=== PATIENT | female | born 1935 | race Caucasian/White ===

== ENCOUNTER 2020-07-03 13:01 | Outpatient (REF) | payer MEDICARE, SELFPAY ==
--- NOTE | ~2020-07-03 | US_ITS ---
EXAMINATION: US NONINVASIVE ASSESSMENT OF THE ARTERIES OF BOTH LOWER EXTREMITIES WITH OKSANA AND DUPLEX DOPPLER EVALUATION CLINICAL INFORMATION: Claudication. COMPARISON: Arteriography of 01/02/2015. TECHNIQUE: ABIs were performed. Real-time ultrasound and Doppler techniques (integrating B-mode 2D vascular images, Doppler spectral analysis and color flow Doppler imaging) were utilized to interrogate the arterial system of the lower extremities bilaterally. FINDINGS: a) AT REST: 1. The ankle-brachial indices are: Right 1.04 and left 1.03. >0.97-1.25 = normal - no significant arterial disease. 0.75-0.96 = mild peripheral arterial disease. 0.5-0.74 = moderate peripheral arterial disease. <0.50 = severe peripheral arterial disease. 2. Segmental pressure at ankle: 202 mmHg within the right dorsalis pedis artery and 200 mmHg in the left posterior tibial and dorsalis pedis arteries. The ankle brachial indices may be falsely elevated due to calcific dictation within the distal vessels limiting compressibility with calcifications being seen on left foot x-ray performed on 03/07/2015. 3. PVR Waveform At Ankle: Blunting of the waveform on the right. RIGHT LOWER EXTREMITY: Common femoral artery has a biphasic waveform with peak systolic velocity of 196 cm/s. Proximal superficial femoral artery has a biphasic waveform with peak systolic velocity of 99 cm/s. The profunda femoral artery has a biphasic waveform with peak systolic velocity of 169 cm/s. The mid superficial femoral artery has a biphasic waveform with peak systolic velocity of 117 cm/s. The mid superficial femoral artery has a biphasic waveform with peak systolic velocity of 140 cm/s. The distal superficial femoral artery has a biphasic waveform with peak systolic velocity of 305 cm/s proximal to a stenosis with calcified plaque and distal to the stenosis within the superficial femoral artery the velocity is 30 cm/s. The popliteal artery has a biphasic waveform with peak systolic velocity of 123 cm/s. The proximal peroneal artery has a monophasic waveform with peak systolic velocity of 54 cm/s. The mid posterior tibial artery is occluded with collaterals reconstituting flow with monophasic waveform at the ankle and peak systolic velocity of 34 cm/s. LEFT LOWER EXTREMITY: Left common femoral artery has a triphasic waveform with peak systolic velocity of 180 cm/s. The profunda femoral artery has a biphasic waveform with peak systolic velocity of 134 cm/s. There is a stent noted from the proximal superficial femoral artery through to the popliteal artery. Just proximal to the stent there is a triphasic waveform within the superficial femoral artery with peak systolic velocity of 203 cm/s. Within the proximal stent in the superficial femoral artery there is a triphasic waveform with peak systolic velocity of 198 cm/s. Within the mid superficial femoral artery stent portion there is a triphasic waveform with peak systolic velocity of 190 cm/s. Within the distal superficial femoral artery portion of the stent there is a triphasic waveform with peak systolic velocity of 177 cm/s. Within the popliteal artery just distal to the stent there is a biphasic waveform with peak systolic velocity of 148 cm/s. Within the distal posterior tibial artery there is a biphasic waveform with peak systolic velocity of 79 cm/s. Within the peroneal artery there is a monophasic waveform with peak systolic velocity of 181 cm/s. US/US arterial duplex LE BI IMPRESSION: 1. Probably falsely elevated ABIs related to noncompressibility of calcified vessels at the ankle. 2. Hemodynamically significant distal superficial femoral artery stenosis. 3. Patent left lower extremity superficial femoral artery stent.
== END 2020-07-03 13:02 | disposition home or self-care (01) ==
LOC: HO.US 13:01
PROVIDERS: Visit Provider Surgery Vascular Surgery
DX: I70.213 Atherosclerosis of native arteries of extremities with intermittent claudication, bilateral legs (principal)
CPT/HCPCS: 93923; 93925

== ENCOUNTER → 2020-07-08 15:30 | Outpatient (BNVA) | payer MEDICARE, SELFPAY | PROVIDERS: PCP Internal Medicine; Visit Provider Surgery Vascular Surgery | DX: I73.9 Peripheral vascular disease, unspecified (principal) | CPT/HCPCS: 99212 ==

== ENCOUNTER 2021-07-02 08:58 | Outpatient (REF) | payer MEDICARE, SELFPAY ==
--- NOTE | ~2021-07-02 | US_ITS ---
EXAMINATION: Noninvasive assessment of the arteries of both lower extremities to include a PVR exam limited (1-2 levels) and OKSANA, bilateral. ? Patrick Carr M.D. CLINICAL INFORMATION: Peripheral vascular disease COMPARISON: 07/03/2020 TECHNIQUE: The ankle/brachial indices of the distal posterior tibial and the dorsalis pedis arteries were obtained of the lower extremity arterial system bilaterally; along with pressures and pulse volume recordings at the ankle and duplex Doppler techniques of the common femoral, proximal femoral and proximal profunda arteries. The study was performed at rest. ? FINDINGS AT REST:? RIGHT LE. THE RIGHT ANKLE-BRACHIAL INDEX IS: 1.35 (higher of the DP/PT) >0.97-1.25 = normal - no significant arterial disease 0.75-0.96 = mild peripheral arterial disease 0.50-0.74 = moderate peripheral arterial disease <0.50 = severe peripheral arterial disease <0.30 = critical arterial disease 2. SEGMENTAL PRESSURES: Ankle: PT 205 DP 200 3. PVR WAVEFORMS: Ankle: Abnormally blunted 4. DIRECT DUPLEX: Atherosclerotic plaque in the visualized common femoral artery, proximal profunda femoral artery and proximal SFA with normal diastolic flow reversal. Markedly elevated velocity in the mid SFA with bulky atherosclerotic plaque. There are normal velocities in the distal SFA, popliteal artery and posterior tibial artery with diastolic flow reversal. LEFT LE. THE LEFT ANKLE-BRACHIAL INDEX IS: 1.33 (higher of the DP/PT) >0.97-1.25 = normal - no significant arterial disease 0.75-0.96 = mild peripheral arterial disease 0.50-0.74 = moderate peripheral arterial disease <0.50 = severe peripheral arterial disease <0.30 = critical arterial disease 2. SEGMENTAL PRESSURES: Ankle: PT 198 DP 202 3. PVR WAVEFORMS: Ankle: Abnormally blunted 4. DIRECT DUPLEX: The common femoral artery and profunda femoral artery have normal velocities with diastolic flow reversal. There is a patent stent in the SFA with normal velocity measurements. Normal velocities with diastolic flow reversal in the diseased popliteal artery. The posterior tibial artery is diseased but patent with normal diastolic flow reversal. ? US/US arterial duplex LE BI IMPRESSION: ABIs are likely artificially elevated due to noncompressibility. AVR values are within normal limits. Abnormally blunted PVR waveforms at the ankles. Left SFA stent is patent. High-grade stenosis in the mid right SFA. There are normal velocities with preserved diastolic flow reversal distal to the high-grade stenosis.
== END 2021-07-02 08:59 | disposition home or self-care (01) ==
LOC: HO.US 08:58
PROVIDERS: PCP Internal Medicine; Visit Provider Surgery Vascular Surgery
DX: I73.9 Peripheral vascular disease, unspecified (principal)
CPT/HCPCS: 93923; 93925

== ENCOUNTER → 2021-07-07 13:01 | Outpatient (BNVA) | payer MEDICARE, SELFPAY | PROVIDERS: PCP Internal Medicine; Visit Provider Surgery Vascular Surgery | DX: I73.9 Peripheral vascular disease, unspecified (principal) | CPT/HCPCS: 99212 ==

== ENCOUNTER 2021-07-22 05:55 | Day surgery (SDC) | payer MEDICARE, SELFPAY ==
[2021-07-22] VITALS (8 sets, daily range): BP systolic 141–168; BP diastolic 64–79; PULSE 70; RESP 17–20; TEMP 36.4–36.8; O2SAT 95–97; BMI 32.1
[2021-07-22 06:35] LABS: MANUAL DIFF FLAG NO
[2021-07-22] MEDS: 0.9 % Sodium Chloride 1,000 ML 100 ML IVCONT (06:42)
[2021-07-22 06:52] LABS: Blood Urea Nitrogen 17 mg/dL (9-16); Creatinine Clr Calc Pharmacy 49.8; Estimated Glomerular Filt Rate 56
[2021-07-22 06:54] LABS: Basophils Percent Auto 0.4 % (0-2); Eosinophils Absolute Auto 0.2 X10*3/uL (0.0-0.4); Hemoglobin 15.2 g/dl (12.0-16.0); Imm Gran Abs Auto 0.02 X10*3/uL (0.00-0.03); Imm Gran Pct Auto 0.2 % (0.0-0.4); Lymphocytes Percent Auto 22.4 % (20-40); Mean Corpuscular Hemoglobin 33.1 pg (27.0-33.0); Mean Corpuscular Volume 100.2 fL (80.0-98.0); Mean Platelet Volume 11.9 fL (9.4-12.3); Monocytes Absolute Auto 0.8 X10*3/uL (0.1-1.2); Monocytes Percent Auto 9.2 % (2-11); Neutrophils Absolute Auto 5.9 x10*3/uL (2.0-8.3); Neutrophils Percent Auto 65.8 % (45-73); Platelet Count 172 X10*3/uL (160-400); Red Blood Count 4.59 X10*6/uL (4.20-5.50); White Blood Count 8.9 X10*3/uL (4.8-10.8)
[2021-07-22 07:03] LABS: INTERNATIONAL NORM RATIO 1.2 (0.9-1.1); Prothrombin Time 13.9 SEC (9.9-13.0)
--- NOTE | 2021-07-22 09:33 | W.PM.OPN ---
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 Ultrasound-guided left common femoral access 2. Aortogram with bilateral lower extremity runoff 3. Atherectomy and stent placement of right SFA Surgeon:Cain Montes M.D., FACS, RPVI Foreman Or Supervisor And Operator:None Anesthesia: Local with moderate conscious sedation. Total intraservice moderate sedation time was 62 minutes. I monitored the patient's level of consciousness and physiologic status continuously throughout the procedure. Specimens:none Drains:none Estimated blood loss: Less than 10 ml Implant: Medtronic Ev 3 stent 6 x 40 Indications: Very pleasant 86-year-old female well known to me for longstanding history of peripheral vascular disease. Nearly 5-6 years ago she has had prior left lower extremity intervention. She had increasing pain and discomfort of the right lower extremity on ambulation and she now presents for endovascular intervention The patient has signed the informed consent after reviewing risks, complications, benefits, and alternatives previously discussed with the patient. The patient was given the opportunity to ask any additional questions or voice any concerns. All questions were answered to the patient's satisfaction. Procedure in detail: Patient was brought to the angiography suite prior to which a time-out was called for patient identification and site verification. Bilateral groins were prepped and draped in the standard surgical fashion. Under ultrasound guidance left common femoral was punctured with micro puncture needle and wire. Subsequently a precision 5 [place] sheath was then placed. Bentson wire was advanced to the level of the aorta. 5 [place] Flush catheter was brought up and parked at the level of the renal arteries. Aortogram was then undertaken. Catheter was brought down to the level of the iliac bifurcation. Iliacs were subsequently imaged. Catheter was then brought in up and over to the right side SFA. Runoff study was then undertaken. There was a high-grade stenosis noted in the right SFA. At this time 5000 units of systemic heparin was administered. Up and over 6 [place] sheath was placed over a Glidewire Advantage which was 035. Once this was accomplished we were able to traverse this lesion. We placed a 6 [place] spider wire. Once this was in position we then advanced a Hawk 1 atherectomy device. This was used to do multiple unidirectional atherectomy passes. Once we did improve the luminal diameter there was still a residual stenosis. We plasty this 1st with a 6 x 20 balloon. We then brought into position a 6 x 40 stent and this was deployed. We reused this 6 x 20 balloon to obtain good wall apposition. Once this was accomplished completion angiogram demonstrated good result. Catheter wire sheath was brought back to the ipsilateral side. Through the sheath we then undertook the left lower extremity runoff study as well. Once this was accomplished procedure was terminated. StarClose closure device was deployed. Adequate hemostasis was achieved. Patient was brought back to recovery with stable vitals. Interpretation of films: 1. Ultrasound demonstrates appropriate femoral puncture. Image of which was saved. 2. Aortogram demonstrates appropriate caliber aorta. Minimal disease. Appropriate take-off of the renals, with mild disease at bilateral origin 3. Iliac images demonstrate no significant disease mild tortuosity 4. Right Leg Common femoral artery: No significant disease Profundus Femoris: No significant disease Superficial femoral artery: Patent with high-grade stenosis at [place] Popliteal artery (p1,p2,p3): No significant disease Anterior tibial artery: Patent at origin and then occludes feeds into the peroneal artery Peroneal artery: Occluded at origin and then feeds via collaterals from the anterior tibial and then becomes the main dominant runoff. Posterior tibial artery: Occluded Dorsalis pedis/plantar arch: Occluded 5. Left Leg Common femoral artery: No significant disease Profundus Femoris: No significant disease Superficial femoral artery: Patent with no significant disease noted in stents. Popliteal artery (p1,p2,p3): No significant disease Anterior tibial artery: Patent with mild disease at origin Peroneal artery: Patent Posterior tibial artery: Patent Dorsalis pedis/plantar arch: Present but incomplete Conclusion: 1. Successful atherectomy and stent of right SFA 2. Anticoagulation status: Continue with aspirin and she can resume her Coumadin tomorrow This note is constructed using voice recognition software. While every effort has been made to ensure accuracy, director of career resources errors may have been included. Thank you for allowing me to participate in the care of your patient. Yours sincerely, Cain Montes MD, FACS, R.P.V.I.
== END 2021-07-22 11:42 | disposition home or self-care (01) ==
PROVIDERS: PCP Internal Medicine; Visit Provider Surgery Vascular Surgery
DX: I70.211 Atherosclerosis of native arteries of extremities with intermittent claudication, right leg (principal); I10 Essential (primary) hypertension; E78.00 Pure hypercholesterolemia, unspecified; M72.2 Plantar fascial fibromatosis; Z96.651 Presence of right artificial knee joint; Z79.01 Long term (current) use of anticoagulants; Z79.82 Long term (current) use of aspirin; Z79.899 Other long term (current) drug therapy; Z88.8 Allergy status to other drugs, medicaments and biological substances
CPT/HCPCS: 36415; 37227; 76937; 82565; 84520; 85025; 85610; 99152; 99153; C1714; C1725; C1760; C1769; C1876; C1884; C1887; J2250; J3010; Q9967

== ENCOUNTER → 2021-08-06 10:13 | Outpatient (BNVA) | payer MEDICARE, SELFPAY | PROVIDERS: PCP Internal Medicine; Visit Provider Surgery Vascular Surgery | DX: I73.9 Peripheral vascular disease, unspecified (principal) | CPT/HCPCS: 99212 ==

== ENCOUNTER 2021-11-02 10:18 | Outpatient (REF) | payer MEDICARE, SELFPAY ==
--- NOTE | ~2021-11-02 | US_ITS ---
EXAMINATION: NONINVASIVE ASSESSMENT OF THE ARTERIES OF BOTH LOWER EXTREMITIES WITH ANKLE PRESSURE MEASUREMENTS, ANKLE BRACHIAL INDICES, PVR MEASUREMENTS AND BILATERAL LOWER EXTREMITY DUPLEX. CLINICAL INFORMATION: Peripheral vascular disease. TECHNIQUE: Ankle pressure measurements, ankle brachial indices and PVR tracings were obtained of the lower extremity arterial system bilaterally. In addition, duplex Doppler techniques with waveform analysis and measurement of velocities in the common femoral, profunda femoral, superficial femoral, popliteal and tibial arteries was performed. The study was performed only at rest. COMPARISON: 07/02/2021 FINDINGS: NONINVASIVE ASSESSMENT OF THE ARTERIES OF BOTH LOWER EXTREMITIES WITH ABIs: RIGHT LEG: Right ankle-brachial index: Not calculated due to vessel noncompressibility. PVR (ankle): Abnormal, dampened. LEFT LEG: Ankle-brachial index: Not calculated due to vessel noncompressibility. PVR (ankle): Abnormal, loss of dicrotic notch. BILATERAL LOWER EXTREMITY DUPLEX ULTRASOUND: RIGHT LEG: Common femoral artery: 158 cm/s, diastolic flow reversal: Yes Profunda femoris artery: 138 cm/s, diastolic flow reversal: Yes Superficial femoral artery (proximal): 110 cm/s, diastolic flow reversal: No Superficial femoral artery (mid): 217 cm/s, diastolic flow reversal: Yes Mid SFA stent: [place] artery, proximal: 234 cm/s, diastolic flow reversal: Yes Proximal stent: 233 cm/s, diastolic flow reversal: Yes Mid stent: 152 cm/s, diastolic flow reversal: No Distal stent: 164 cm/s, diastolic flow reversal: No [place] artery, distal: 136 cm/s, diastolic flow reversal: No Superficial femoral artery (distal): 111 cm/s, diastolic flow reversal: Yes Popliteal artery: 176 cm/s, diastolic flow reversal: Yes Posterior tibial artery: 118 cm/s, diastolic flow reversal: No LEFT LEG: Common femoral artery: 220 cm/s, diastolic flow reversal: Yes Profunda femoris artery: 119 cm/s, diastolic flow reversal: Yes SFA stent: [place] artery, proximal: 117 cm/s, diastolic flow reversal: Yes Proximal stent: 191 cm/s, diastolic flow reversal: Yes Mid stent: 125 cm/s, diastolic flow reversal: Yes Distal stent: 106 cm/s, diastolic flow reversal: No Popliteal artery: 118 cm/s, diastolic flow reversal: Yes Posterior tibial artery: 89 cm/s, diastolic flow reversal: No US/US arterial duplex LE BI IMPRESSION: RIGHT LEG: OKSANA not calculated due to vessel noncompressibility. Increased velocities within the [place] mid SFA and proximal mid SFA stent consistent with a moderate stenosis. The stent is patent. LEFT LEG: OKSANA not calculated due to vessel noncompressibility. Duplex reveals a patent left SFA stent. OKSANA Reference: - >0.97-1.25 = normal - no significant arterial disease - 0.75-0.96 = mild peripheral arterial disease - 0.5-0.74 = moderate peripheral arterial disease - <0.50 = severe peripheral arterial disease
== END 2021-11-02 10:19 | disposition home or self-care (01) ==
LOC: HO.US 10:18
PROVIDERS: Visit Provider Surgery Vascular Surgery
DX: I73.9 Peripheral vascular disease, unspecified (principal)
CPT/HCPCS: 93925

== ENCOUNTER → 2021-11-24 10:19 | Outpatient (BNVA) | payer MEDICARE, SELFPAY | PROVIDERS: PCP Internal Medicine; Visit Provider Surgery Vascular Surgery | DX: I73.9 Peripheral vascular disease, unspecified (principal) | CPT/HCPCS: 99212 ==

== ENCOUNTER 2022-05-06 11:00 | Outpatient (REF) | payer MEDICARE, SELFPAY ==
--- NOTE | ~2022-05-06 | US_ITS ---
EXAMINATION: NONINVASIVE ASSESSMENT OF THE ARTERIES OF BOTH LOWER EXTREMITIES WITH PVR EXAM AND BILATERAL LOWER EXTREMITY DUPLEX Darrian Trujillo MD CLINICAL INFORMATION: Peripheral vascular disease. TECHNIQUE: Ankle pulse volume recordings, ankle pressure measurements and ankle brachial indices were obtained of the lower extremity arterial system bilaterally in addition to duplex Doppler techniques with wave form analysis and measurement of velocities in the common femoral, profunda femoral, superficial femoral, popliteal and tibial arteries. The study was performed only at rest. COMPARISON: 11/02/2021 FINDINGS: AT REST: RIGHT LEG: There is a widely patent stent present in the mid SFA. Some plaque is present but multiphasic flow is seen throughout. 1. The right ankle-brachial index is: OK[place]NA could not be calculated secondary to noncompressible vessels as seen on the prior study as well. >0.97-1.25 = normal - no significant arterial disease 0.75-0.96 = mild peripheral arterial disease 0.5-0.74 = moderate peripheral arterial disease <0.50 = severe peripheral arterial disease 2. Right ankle pressure: Not obtained due to incompressibility 3. Right ankle PVR waveform: Mildly blunted 4. Right direct duplex Doppler findings: Common Femoral: 138 Profunda Femoris: 112 Proximal SFA: 110 Mid SFA: 217 Distal SFA: 116 Popliteal: 138 Tibial: 41 LEFT LEG: There is widely patent stent present throughout the SFA. Some plaque is present but multiphasic flow is seen throughout. 1. The left ankle-brachial index is: OKSANA could not be calculated secondary to noncompressible vessels as seen on the prior study as well. >0.97-1.25 = normal - no significant arterial disease 0.75-0.96 = mild peripheral arterial disease 0.5-0.74 = moderate peripheral arterial disease <0.50 = severe peripheral arterial disease 2. Left ankle pressure: Not obtained due to incompressibility. 3. Left ankle PVR waveform: Normal. 4. Left direct duplex Doppler findings: Common Femoral: 152 Profunda Femoris: 100 Proximal SFA: 105 Mid SFA: 118 Distal SFA: 102 Popliteal: 69 Tibial: 63 US/US OKSANA complete IMPRESSION: Bilateral SFA stents are patent. Multiphasic flow is seen throughout the lower extremities.
--- NOTE | ~2022-05-06 | US_ITS ---
EXAMINATION: NONINVASIVE ASSESSMENT OF THE ARTERIES OF BOTH LOWER EXTREMITIES WITH PVR EXAM AND BILATERAL LOWER EXTREMITY DUPLEX Darrian Trujillo MD CLINICAL INFORMATION: Peripheral vascular disease. TECHNIQUE: Ankle pulse volume recordings, ankle pressure measurements and ankle brachial indices were obtained of the lower extremity arterial system bilaterally in addition to duplex Doppler techniques with wave form analysis and measurement of velocities in the common femoral, profunda femoral, superficial femoral, popliteal and tibial arteries. The study was performed only at rest. COMPARISON: 11/02/2021 FINDINGS: AT REST: RIGHT LEG: There is a widely patent stent present in the mid SFA. Some plaque is present but multiphasic flow is seen throughout. 1. The right ankle-brachial index is: OKSANA could not be calculated secondary to noncompressible vessels as seen on the prior study as well. >0.97-1.25 = normal - no significant arterial disease 0.75-0.96 = mild peripheral arterial disease 0.5-0.74 = moderate peripheral arterial disease <0.50 = severe peripheral arterial disease 2. Right ankle pressure: Not obtained due to incompressibility 3. Right ankle PVR waveform: Mildly blunted 4. Right direct duplex Doppler findings: Common Femoral: 138 Profunda Femoris: 112 Proximal SFA: 110 Mid SFA: 217 Distal SFA: 116 Popliteal: 138 Tibial: 41 LEFT LEG: There is widely patent stent present throughout the SFA. Some plaque is present but multiphasic flow is seen throughout. 1. The left ankle-brachial index is: OKSANA could not be calculated secondary to noncompressible vessels as seen on the prior study as well. >0.97-1.25 = normal - no significant arterial disease 0.75-0.96 = mild peripheral arterial disease 0.5-0.74 = moderate peripheral arterial disease <0.50 = severe peripheral arterial disease 2. Left ankle pressure: Not obtained due to incompressibility. 3. Left ankle PVR waveform: Normal. 4. Left direct duplex Doppler findings: Common Femoral: 152 Profunda Femoris: 100 Proximal SFA: 105 Mid SFA: 118 Distal SFA: 102 Popliteal: 69 Tibial: 63 US/US arterial duplex LE BI IMPRESSION: Bilateral SFA stents are patent. Multiphasic flow is seen throughout the lower extremities.
== END 2022-05-06 11:01 | disposition home or self-care (01) ==
LOC: HO.US 11:00
PROVIDERS: PCP Internal Medicine; Visit Provider Surgery Vascular Surgery
DX: I70.213 Atherosclerosis of native arteries of extremities with intermittent claudication, bilateral legs (principal)
CPT/HCPCS: 93923; 93925

== ENCOUNTER → 2022-05-13 10:04 | Outpatient (BNVA) | payer MEDICARE, SELFPAY | PROVIDERS: PCP Internal Medicine; Visit Provider Surgery Vascular Surgery | DX: I73.9 Peripheral vascular disease, unspecified (principal) | CPT/HCPCS: 99212 ==

== ENCOUNTER 2023-04-12 09:29 | Outpatient (REF) | payer MEDICARE, SELFPAY ==
--- NOTE | ~2023-04-12 | US_ITS ---
EXAMINATION: Noninvasive assessment of the bilateral lower extremities with ARTERIAL DUPLEX and ANKLE BRACHIAL INDICES (ABIs). CLINICAL INFORMATION: Peripheral vascular disease. History of prior bilateral stents TECHNIQUE: Duplex Doppler techniques with waveform analysis and measurement of velocities in the bilateral common femoral, profunda femoris, superficial femoral, popliteal and tibial arteries were performed. Additionally, ankle pulse volume recordings, ankle pressure measurements and ankle brachial indices were obtained of the lower extremity arterial system bilaterally. The study was performed only at rest. COMPARISON: 05/06/2022 and 11/02/2021 FINDINGS: DIRECT DUPLEX DOPPLER FINDINGS: RIGHT LEG: Common femoral artery: 90.8 cm/s, phasicity: Triphasic Profunda femoris artery: 71.4 cm/s, phasicity: Triphasic Superficial femoral artery (proximal): 66.8 cm/s, phasicity: Biphasic Superficial femoral artery (mid): Stent is present Stent: Proximal to stent: 160.9 cm/s, biphasic Proximal stent: 150.4 cm/s, biphasic Mid stent: 82.8 cm/s, biphasic Distal stent: 71.4 cm/s, biphasic Distal to stent: 79.2 cm/s, biphasic Superficial femoral artery (distal): 76.5 cm/s, phasicity: Biphasic Popliteal artery: 65.7 cm/s, phasicity: Biphasic Posterior tibial artery: 16.7 cm/s, phasicity: Monophasic in the mid segment. Distal segment is occluded Peroneal artery: Occluded Anterior tibial artery: 22.9 cm/s, phasicity: Monophasic Dorsalis pedis artery: 28.4 cm/s, phasicity:Monophasic LEFT LEG: Common femoral artery: 79.3 cm/s, phasicity: Biphasic Profunda femoris artery: 58.7 cm/s, phasicity: Biphasic Superficial femoral artery (proximal) to popliteal artery: Stent is present Stent: Proximal to stent: 66.2 cm/s, biphasic Proximal stent: 84.9 cm/s, biphasic Mid stent: 82.1 cm/s, biphasic Distal stent: 68.2 cm/s, biphasic Distal to stent: 80.5 cm/s, triphasic Posterior tibial artery: 80.1 cm/s, phasicity: Biphasic Peroneal artery: 38.4 cm/s, phasicity: Biphasic Anterior tibial artery: 67.3 cm/s, phasicity: Biphasic Dorsalis pedis artery: 40.2 cm/s, phasicity: Biphasic ANKLE-BRACHIAL INDEX: Right: Nondiagnostic? Left: Nondiagnostic ANKLE PRESSURES: Right: PT nondetectable, DP greater than 200 Left: PT?nondetectable, DP?greater than 200 ANKLE PVR WAVEFORMS: Right: Moderately dampened Left: Mildly dampened US/US arterial duplex LE BI IMPRESSION: Right leg: Stable examination with patent superficial femoral artery stent. Dampened waveforms seen in the below-knee runoff vessels consistent with small vessel disease Left leg: Stable examination with patent superficial femoral artery to popliteal artery stent. Patent below-knee runoff vessels OKSANA Reference: - >1.4 = calcified vessels - 0.9 - 1.4 = normal - no significant arterial disease - 0.7 - 0.89 = mild peripheral arterial disease - 0.51 - 0.69 = moderate peripheral arterial disease - ? 0.50 = severe peripheral arterial disease - < .30 = critical arterial disease
== END 2023-04-12 09:30 | disposition home or self-care (01) ==
LOC: HO.US 09:29
PROVIDERS: PCP Internal Medicine; Visit Provider Surgery Vascular Surgery
DX: I70.213 Atherosclerosis of native arteries of extremities with intermittent claudication, bilateral legs (principal)
CPT/HCPCS: 93923; 93925

== ENCOUNTER 2023-04-19 09:35 | Outpatient (AMB) | payer MEDICARE, SELFPAY ==
[2023-04-19 09:38] VITALS: BP 114/62; PULSE 60; O2SAT 97; BMI 30.7
--- NOTE | 2023-04-19 09:38 | A.OFFVIS_ITS ---
Intake Vital Signs 04/19/23 09:38 Height 5 ft 6 in Weight 190 lb BMI 30.7 BP 114/62 Blood Pressure Location Rt brachial Position Sitting Pulse 60 Pulse Source Pulse Oximeter Pulse Oximetry (%) 97 Oxygen Delivery Method Room Air Intake Visit Reasons: 1 yr follow up Arterial US 04/12/23 Intake Note: Pt presents to the office today for a 1 year follow up arterial US. Pt states she has good days and bad days. Pt states her leg swelling is not as bad as it was before. Pt states she will occasionally get pain in her toes in both feet. Pt states her left big toe has some discoloration on the bottom. Allergies Vlokzpn-VAH-DqQ Reductase Inhibitor [ZCFPFDF-CHC-TLG REDUCTASE INHIBITOR] Adverse Reaction (Severe, Verified 04/19/23 09:39) BODY ACHES amoxicillin Adverse Reaction (Mild, Verified 04/19/23 09:39) Diarrhea HPI 1 yr follow up Arterial US 04/12/23 HPI Details Very pleasant 87-year-old female presents for routine surveillance follow-up regarding peripheral vascular disease. She had undergone left lower extremity intervention nearly 8 years ago and right lower extremity intervention nearly 2 years ago. She appears to be doing extremely well. Her only concern is a blister on the left great toe. Other than that no significant complaints. She appears to be doing well. She has seen Dr. French regarding a facial cyst excision from which she appears to be doing extremely well from. 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 Social History (Updated 04/19/23 @ 09:52 by Joan Gerardo MA) Household Members: Spouse Housing: House Alcohol intake: current Alcohol intake frequency: holidays/special occasions only Patient Tobacco Use Status: Never used Tobacco Review of Systems Const All systems reviewed & are unremarkable except as noted in HPI and below Reports no additional complaints ENT Reports Normal hearing present Card Denies chest pain, Denies chest pain at rest, Denies chest pain with activity and Denies pedal edema Resp Denies cough GI Denies abdominal pain Musc Denies abnormal gait, Denies muscle cramps and Denies radiating pain into limb Skin/Breast Denies skin ulcer and Denies wounds Neuro Reports Normal hearing present and Denies abnormal gait Psych Reports no additional complaints Physical Exam Vital Signs: Last Vital Signs Pulse 60 04/19/23 09:38 BP 114/62 04/19/23 09:38 Pulse Ox 97 04/19/23 09:38 Oxygen Delivery Method Room Air 04/19/23 09:38 BMI result Body Mass Index 30.7 Const General: cooperative, healthy appearing and comfortable Orientation/consciousness: oriented to person, oriented to place and oriented to time HEENT Head: Yes normal to inspection Neck Neck: Yes normal visual inspection Carotids: no bruits Chest Chest palpation & inspection: normal inspection of the chest Resp Effort & Inspection: normal respiratory effort and able to speak in complete sentences Auscultation: clear to auscultation bilaterally, no crackles, no rales, no rhonchi and no wheezes Cardio Rate: regular rate Rhythm: regular rhythm Heart sounds: S1 normal heart sound present and S2 normal heart sound present Bruits: no carotid bruits Peripheral pulses: Peripheral pulses 2+ throughout GI Inspection: Yes normal to inspection Skin Other: Left great toe blister Wounds: no wounds Hair: normal Neuro General: oriented to person, oriented to place and oriented to time Cranial nerves: Yes CN's II-XII intact bilaterally and Yes Normal hearing present Cognition (Neuro): normal cognition Motor exam (neuro): 5/5 motor strength present throughout Extrem Other: venous exam: No significant superficial varicosities or spider telangiectasias, minimal edema General: No clubbing, No cyanosis and No edema Psych Appearance: grossly normal Mental Status: mental status grossly normal Speech and movement: Normal speech and movement present Results Reviewed Results Reviewed: Noninvasive arterial testing dated 04/12/2023 demonstrates triphasic to biphasic waveforms all the way down bilateral lower extremities with patent stents. Unfortunately high pressures so they were unable to get ABIs. Assessment & Plan Assessment & Plan (1) PAD (peripheral artery disease): Comment: 01/02/2015 - left SFA stent and left popliteal plasty with DCB 07/22/2021 - atherectomy and stent of right SFA Code(s): I73.9 - Peripheral vascular disease, unspecified Plan: In short patient is doing extremely well from an arterial standpoint. I did appreciate palpable bilateral dorsalis pedis pulses along with good arterial testing. She is scheduled for podiatric follow-up later this week. I did request that she ask him about addressing that left great toe callused area. She will follow up with us in approximately 1 year's time with noninvasive arterial testing. Thank you for allowing us to participate in the care of this very pleasant lady. Thank you for allowing us to assist in her care if there are any questions or concerns please do not hesitate to contact us Coding Level of Care Code Est Pt Level 4 (83132) Diagnoses PAD (peripheral artery disease) I73.9
== END 2023-04-19 10:30 | disposition home or self-care (01) ==
PROVIDERS: PCP Internal Medicine; Visit Provider Surgery Vascular Surgery
DX: I73.9 Peripheral vascular disease, unspecified (principal)
CPT/HCPCS: 99213

== ENCOUNTER → 2023-04-19 09:35 | Outpatient (BNVA) | payer MEDICARE, SELFPAY | PROVIDERS: PCP Internal Medicine; Visit Provider Surgery Vascular Surgery | DX: I73.9 Peripheral vascular disease, unspecified (principal); Z95.820 Peripheral vascular angioplasty status with implants and grafts | CPT/HCPCS: 99212 ==

== ENCOUNTER 2024-04-25 13:31 | Outpatient (REF) | payer MEDICARE, SELFPAY ==
--- NOTE | ~2024-04-25 | US_ITS ---
CLINICAL HISTORY: I73.9 - Peripheral vascular disease, unspecified Ankle-brachial index Comparison: None Findings: Right brachial artery 141 mmHg Right posterior tibial artery 208 mmHg Right dorsalis pedis artery 200 mmHg Right OKSANA:1.48 Left brachial artery 140 mmHg Left posterior tibial artery 200 mmHg Left dorsalis pedis artery 204 mmHg Left OKSANA:1.45 OKSANA and estimated severity of disease: 0.96 - 1.30 generally normal 0.81 - 0.95 mild disease 0.51 - 0.80 moderate disease 0.31 - 0.50 moderate to severe disease < 0.30 severe disease Impression: 1. Normal right OKSANA 1.48 2. Normal left OKSANA 1.45 Bilateral lower extremity duplex arterial Doppler Comparison: None Technique: Grayscale/Color and duplex Doppler sonographic evaluation of the arterial system within both lower extremities. Peak systolic velocities recorded in centimeters per second. Findings: Right lower extremity [employer]ER[employer] TECHNICIAN: Biphasic. 88.3 cm/s SFA: Biphasic. 86.6 cm/s. Patent stent mid /distal SFA peak systolic velocities average 90-96 centimeters/second distally. Popliteal artery: Biphasic. 84.4 cm/s Posterior tibial: Monophasic. 24.0 cm/s Dorsalis pedis: Biphasic. 28.6 cm/s Anterior tibial: Biphasic. 41.6 cm/s Peroneal: Limited assessment. Left lower extremity [employer]ERILE TECHNICIAN: Biphasic. 124.0 cm/s SFA: Biphasic. 87.6cm/s proximally. Patent stent with triphasic flow mid and distal level with peak systolic velocities between 80 and 106 centimeters/second. Popliteal artery: Patent stent with triphasic flow peak systolic velocity 81 centimeters/second. Posterior tibial: Biphasic. 70.6 cm/s Dorsalis pedis: Biphasic. 51.5 cm/s Anterior tibial: Biphasic. 71.5 cm/s Peroneal: Biphasic. 34.3 cm/s Impression: 1. No occlusive disease demonstrated. 2. Patent right SFA stent 3. Patent left SFA/popliteal artery stent. This document has been electronically signed by: Gerson Coulter MD on 04/26/2024 21:07:00
--- OUTSIDE RECORDS SUMMARY | 2024-04-25 15:39 | XMS_ITS | Encounter Summary ---
Author Organization [facility] Address [address] [place] [address] Care Team Providers Care Head Chopper Name Role Phone Castro Cardoso MD Primary Care Provider [phone] Encounter Details Date Type Department Care Team (Late Contact Info) Description 04/24/2024 12:25 PM EST Ancillary Procedure [facility] [address] [facility] [address] [place] [address] Social History Tobacco Use Types Packs/Day Years Used Date Smoking Tobacco: Former Cigarettes 0.5 36 0 04/04/1952 - 04/04/1988 Smokeless Tobacco: Never Alcohol Use Standard Drinks/Week Comments Not Currently 0 (1 standard drink = 0.6 oz pur e alcohol) Sex and Gender Information Value Date Recorded Sex Assigned at Not on file Gender Identity Not on file Sexual Orientation Not on file Job Start Date Occupation Industry Not on file Not on file Not on file documented as of this encounter Plan of Treatment Upcoming Encounters Date Type Department Care Team (Late Contact Info) Description 05/16/2024 1:45 PM EST Office Visit Orthopedic Surgery - [place] [address] [facility] [address] [place] [phone] Dread [place], DPM [address] [place] [address] 06/06/2024 2:40 PM EST Office Visit [facility] Cardiology [facility] [address] [place] [phone] Jennifer Segundo NP [address] [place] [address] Dr Payne [address] [place] [address] 07/23/2024 10:30 AM EDT Office Visit Orthopedic Surgery - [place] [address] [place] [phone] Aide Nguyen, JOIE [address] [place] [address] [place] [phone] 10/23/2024 2:00 PM EDT Ancillary Procedure [facility] [address] [place] [address] Scheduled Procedures Name Priority Associated Diagnoses Date/Ti me REPAIR HAMMER TOE Hammer toe of left foot Ulcer of toe of left foot, with fat layer exposed (CMS/HCC) documented as of this encounter Procedures Procedure Name Priority Date/Time Associated Diagnosis Comments CARDIAC DEVICE CHECK- REMOTE- MURJ Routine 04/24/2024 12:24 PM EST documented in this encounter Results * Cardiac device check - Remote- MURJ (04/24/2024 12:24 PM EST) Date Time Interrogation Session [id number] CV DEVICE CHECK Type Interrogation Session Remote Scheduled CV DEVICE CHECK 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 [employer] CV DEVICE CHECK Implantable Pulse Generator Type IPG CV DEVICE CHECK Implantable Pulse Generator Model 2272 Assurity MRI(TM) CV DEVICE CHECK Implantable Pulse Generator Serial Number [id number] CV DEVICE CHECK Implantable Pulse Generator Implant Date 20221001 CV DEVICE CHECK Battery Remaining Percentage 83.00 CV DEVICE CHECK Battery Remaining Longevity 65.0 CV DEVICE CHECK Battery Voltage 2.980 CV D EVICE CHECK Battery CLINICAL RESEARCH MANAGER Trigger 2.600 CV DEVICE CHECK Battery Status Middle of Service CV DEVICE CHECK Nate Statistic RA Percent Paced 80.00 CV DEVICE CHECK Nate Statistic RV Percent Paced 99.00 CV DEVICE CHECK Atrial Tachy Statistic AT/AF [place] Percent 0.00 CV DEVICE CHECK Lead Channel Sensing Intrinsic Amplitude 1.800 CV DEVICE CHECK Lead Channel Setting Sensing Sensitivity 0.50 CV DEVICE CHECK Lead Channel Impedance Value 300 CV DEVICE CHECK Lead Channel Setting Pacing Amplitude 3.000 CV DEVICE CHECK Lead Channel Setting Pacing Pulse Width 0.4 CV DEVICE CHECK Lead Channel Sensing Intrinsic Amplitude 12.000 CV DEVICE CHECK Lead Channel Setting Sensing Sensitivity 2.00 CV DEVICE CHECK Lead Channel Impedance Value 350 CV DEVICE CHECK Lead Channel Pacing Threshold Amplitude 0.875 CV DEVICE CHECK Lead Channel Pacing Threshold Pulse Width 0.4 CV DEVICE CHECK Lead Channel RV Pacing Threshold Date 2024-04-18 CV DEVICE CHECK Lead Channel Setting Pacing Amplitude 1.125 CV DEVICE CHECK Lead Channel Setting Pacing Pulse Width 0.4 CV DEVICE CHECK Nate Setting Mode (NBG Code) DDD CV DEVICE CHECK Nate Setting Lower Rate Limit 60 CV DEVICE CHECK Nate Setting AT Mode Switch Rate 180 CV DEVICE CHECK Nate Setting Maximum Tracking Rate 130 CV DEVICE CHECK Nate Setting Maximum Sensor Rate 130 CV DEVICE CHECK Nate Setting PAV Delay 200 CV DEVICE CHECK Nate Setting ROHIT Delay 150 CV DEVICE CHECK Date of Service 2024-04-28 CV DEVICE CHECK Anatomical Region Laterality Modality Device Interroga tion 04/18/2024 2:00 AM EST Impressions 04/24/2024 9:43 AM EST Normal Remote: With Events * Normal Device Function * Events or Alerts: 3 'AMS' events noted; EGM's available suggestive of brief Atrial noise (new) which does not impact pacing * Battery: Battery is at 83%, 5.42 yrs * Sensing, impedance and thresholds reviewed * Programmed parameters reviewed * Presenting rhythm: AP - PRIVATE ADVISOR 60 bpm * Heart Rate Histograms reviewed Narrative Procedure Note Eduin Fairchild MD - 04/24/2024 IMPRESSION: Normal Remote: With Events * Normal Device Function * Events or Alerts: 3 'AMS' events noted; EGM's available suggestive ofbrief Atrial noise (new) which does not impact pacing * Battery: Battery is at 83%, 5.42 yrs * Sensing, impedance and thresholds reviewed * Programmed parameters reviewed * Presenting rhythm: AP - PRIVATE ADVISOR 60 bpm * Heart Rate Histograms reviewed Eduin Fairchild MD CV IMPLANTABLE CARDI AC DEVICE PROCEDURES documented in this encounter Visit Diagnoses Not on filedocumented in this encounter Care Teams Head Chopper Relationship Specialty Start Date End Date Castro Cardoso MD [address] [place] [id number] PCP - General Internal Medicine 03/08/13 documented as of this encounter
--- OUTSIDE RECORDS SUMMARY | 2024-04-25 15:39 | XMS_ITS | Clinical Summary ---
Author Organization [facility] Address [address] [place] [address] Care Team Providers Care Parent Aide Name Role Phone Castro Cardoso MD Primary Care Provider Unavailab le Allergies No known active allergies Medications Medication Sig Dispensed Refills Start Date End Date Status aspirin EC 81 MG tablet Take 1 tablet (81 mg total) by mouth daily. 0 Active Calcium Carbonate (CALCIUM-CARB 600 PO) Take by mouth. 0 Active carvedilol (COREG) 12.5 MG tablet Take 1 tablet (12.5 mg total) by mouth 2 (two) times a day with meals. 0 Active sacubitril-valsartan (Entresto) 49-51 MG per tablet Take 1 tablet by mouth 2 (two) times a day. 0 Active ezetimibe (ZETIA) tablet 10 mg Take 1 tablet (10 mg total) by mouth daily. 0 Active furosemide (LASIX) 40 MG tablet Take 1 tablet (40 mg total) by mouth 2 (two) times a day. 0 Active isosorbide mononitrate (IMDUR) 30 MG 24 hr tablet Take 1 tablet (30 mg total) by mouth daily. 0 Active magnesium oxide 400 (240 Mg) MG TABS tablet Take 1 tablet (400 mg total) by mouth 2 (two) times a day. 0 Active niacin (SLO-NIACIN) 500 MG tablet Take 1 tablet (500 mg total) by mouth 2 (two) times a day with meals. 0 Active Rosuvastatin Calcium 5 MG CPSP Take by mouth. 0 Active spironolactone (ALDACTONE) tablet 25 mg Take 1 tablet (25 mg total) by mouth daily. 0 Active warfarin (COUMADIN) 5 MG tablet Take 1 tablet (5 mg total) by mouth daily. 0 Active Social History Tobacco Use Types Packs/Day Years Used Date Smoking Tobacco: Former Cigarettes Comments:Quit ~ 40 years ago Alcohol Use Standard Drinks/Week Comments Yes 0 (1 standard drink = 0.6 oz pur e alcohol) rare Sex and Gender Information Value Date Recorded Sex Assigned at Not on file Gender Identity Not on file Sexual Orientation Not on file Job Start Date Occupation Industry Not on file Not on file Not on file Last Filed Vital Signs Vital Sign Reading Time Taken Comments Blood Pressure 141/53 06/02/2023 10:38 AM EST Pulse 60 06/02/2023 10:38 AM EST Temperature 36.7 ??C (98 ??F) 06/02/2023 10:38 AM EST Respiratory Rate - - Oxygen Saturation 99% 06/02/2023 10:38 AM EST Inhaled Oxygen Concentration - - Weight 88.9 kg (196 lb) 06/02/2023 10:38 AM EST Height 165.1 cm (5' 5 ) 06/02/2023 10:38 AM EST Body Mass Index 32.62 06/02/2023 10:38 AM EST Plan of Treatment Health Maintenance Due Date Last Done Comments COVID-19 Vaccine (#1) 1937 Depression Screening 1949 Preventative Health Evaluation 06/21/1955 DTap / Tdap / Td (1 - Tdap) 1956 Shingrix-Zoster Vaccine (1 o f 2) 06/21/1987 Fall Risk Assessment 2002 Osteoporosis Screening (DEXA Scan) 2002 RSV Adult > 60+ Yrs or (1 - 1-dose 75+ series) 2012 Influenza Vaccine (#1) 2023 12/29/2020 Pneumococcal Vaccine Completed 05/24/2019, 05/31/2018 Hepatitis B Vaccines Aged Out No long er eligible based on patient's age to complete this topic RSV Ped < 20 months Aged Out No longe r eligible based on patient's age to complete this topic Care Teams Parent Aide Relationship Specialty Start Date End Date Castro Cardoso MD PCP - General Internal Medicine 05/03/23
--- OUTSIDE RECORDS SUMMARY | 2024-04-25 15:39 | XMS_ITS | Clinical Summary ---
Author Organization [facility] Address [address] [place] [address] Phone Care Team Providers Care Human Intelligence Name Role Phone Castro Cardoso MD Primary Care Provider [phone] Allergies Active Allergy Reactions Criticality Noted Date Comments Amoxicillin Diarrhea 07/20/2021 Haffwqp-Neh-Hct Reductase Inhibitors 09/01/2022 Other reaction(s): Myalgia Medications Medication Sig Dispensed Refills Start Date End Date Status apixaban (Eliquis) 5 mg tablet Take 1 tablet (5 mg total) by mouth 2 (two) times a day. 180 tablet 2 02/07/2024 Active aspirin 81 mg EC tablet Take 1 tablet (81 mg total) by mouth 1 (one) time each day. Active calcium carbonate 1,500 mg (600 mg elemental calcium) tablet Take 1 tablet (1,500 mg total) by mouth 1 (one) time each day. Active carvediloL (COREG) 12.5 mg tablet Take 1 tablet (12.5 mg total) by mouth 2 (two) times a day with meals. 08/25/2023 Active ezetimibe (ZETIA) 10 mg tablet Take 1 tablet (10 mg total) by mouth 1 (one) time each day. 01/24/2024 Active furosemide (LASIX) 40 mg tablet Take 1 tablet (40 mg total) by mouth 1 (one) time each day. 11/23/2023 Active isosorbide mononitrate (IMDUR) 30 mg 24 hr tablet Take 1 tablet (30 mg total) by mouth 1 (one) time each day. 09/05/2023 Active magnesium oxide (MAG-OX) 400 mg (241.3 elemental magnesium) tablet Take 400 mg by mouth daily. Active niacin (SLO-NIACIN) 500 mg CR tablet Take 2 tablets (1,000 mg total) by mouth 1 (one) time each day. Active sacubitriL-valsar crow (Entresto) 49-51 mg per tablet Take 1 tablet by mouth 2 (two) times a day. Active spironolactone (ALDACTONE) 25 mg tablet Take 0.5 tablets (12.5 mg total) by mouth 1 (one) time each day. Active lidocaine (LIDODERM) 5 % patch Apply 1 patch topically 1 (one) time each day. Remove & discard patch within 12 hours or as directed by MD. Active dapagliflozin propanediol (FARXIGA) 10 mg tablet Take 1 tablet (10 mg total) by mouth 1 (one) time each day. 90 tablet 1 04/18/2024 Active rosuvastatin (CRESTOR) 10 mg tablet Take 1 tablet (10 mg total) by mouth 1 (one) time each day. 90 tablet 1 04/18/2024 Active clotrimazole-beta methasone (LOTRISONE) 1-0.05 % cream 11/04/2023 5 Discontinued (Discontinue d by another clinician) rosuvastatin (CRESTOR) 5 mg tablet TAKE 2 TABLETS BY MOUTH EVERY THIRD DAY 01/23/2024 5 Discontinued (Reorder) warfarin (COUMADIN) 5 mg tablet TAKE 1 TABLET BY MOUTH DAILY. MAY CAUSE HEAVY BLEEDING.TAKE AT SAME TIME EVERY DAY. DO NOT CHANGE DIETARY HABITS 08/25/2023 5 Discontinued (Discontinue d by another clinician) Active Problems Problem Noted Date Diagnosed Date Hammer toe of left foot 04/16/2024 Ulcer of toe of left foot, with fat layer expose d 04/16/2024 Atrial fibrillation 02/15/2024 CAD (coronary artery disease) 02/15/2024 History of coronary artery bypass surgery 2023 HLD (hyperlipidemia) 02/15/2024 HTN (hypertension) 02/15/2024 Epidermal inclusion cyst 04/14/2023 HFrEF (heart failure with reduced ejection fract ion) 03/07/2023 SSS (sick sinus syndrome) 07/16/2021 Calculus of gallbladder with out cholecystitis without obstruction 05/12/2021 Diverticulitis large intesti ne w/o perforation or abscess w/o bleeding 01/20/2021 Ventral hernia without obstruction or gangrene 1 Pacemaker 05/02/2020 Overview (04/18/2024): Patient has a dual-chamber [employer] pacemaker in place model number #K173, serial [id number]. The RV lead is a [employer] model #1888TC-52, serial [id number]. The RA lead is a [employer] model number #1888TC-46, serial #[id number]. Chest pain 05/31/2018 Type 2 diabetes mellitus wit h complication, without long-term current use of insulin 05/31/2018 Seborrheic keratosis 02/22/2018 Encounters Date Type Department Care Team Description 04/24/2024 2:30 PM EST Office Visit Orthopedic Surgery [facility] [address] [place] [phone] Aide Nguyen PA Carpal tunnel syndrome on left 04/24/2024 12:25 PM EST Ancillary Procedure [facility] [address] [place] [phone] 04/18/2024 2:10 PM EST Office Visit [facility] - [address] [place] [address] Jennifer Segundo NP Coronary artery disease involving [place] coronary artery of [place] heart without angina pectoris (Primary Dx); HFrEF (heart failure with reduced ejection fraction) (CMS/HCC); Atrial fibrillation, unspecified type (CMS/HCC); Primary hypertension; Pacemaker; SSS (sick sinus syndrome) (CMS/HCC); Mixed hyperlipidemia 04/16/2024 1:45 PM EST Office Visit Orthopedic Surgery [facility] [address] [place] [phone] Dread Verde DPM Rickey toe of left foot (Primary Dx); Follow-up exam; Ulcer of toe of left foot, with fat layer exposed (CMS/HCC) 04/06/2024 11:15 AM EST Office Visit Internal Medicine - [place] [address] [place] [phone] Castro Cardoso MD Congestive heart failure, unspecified HF chronicity, unspecified heart failure type (CMS/HCC) (Primary Dx); Longstanding persistent atrial fibrillation (CMS/HCC); Hypercholesterolemia; Carpal tunnel syndrome on left 03/20/2024 2:15 PM EST Consult Orthopedic Surgery - [place] [address] [place] [phone] Dread Verde, DPM Hammer toe of left foot (Primary Dx); Dermatophytosis of nail; Pain in toe of right foot; Pain in toe of left foot; Type II diabetes mellitus with peripheral circulatory disorder (CMS/HCC); Diabetic mononeuropathy simplex (CMS/HCC); Ulcer of toe of left foot, with fat layer exposed (CMS/HCC) 02/13/2024 10:45 AM EST - 02/13/2024 11:59 PM EST Hospital Encounter [facility] [address] [place] [phone] Encounter for screening mammogram for breast cancer Discharge Disposition: Home or Self Care from Last 3 Months Immunizations Name Administration Dates Next Due Influenza Quadravalent, 0.5m l (Fluzone High-dose) 65yo and older 01/14/2023,01/12/2022 Influenza trivalent, 0.5mL ( Fluzone High-dose) 65yo and older 12/29/2020,01/12/2019,12/22/2017,01/03,01/09/2016 Influenza trivalent, MDCK, 0 .5mL, preservative free (Flucelvax) 6mo and older 03/05/2015 Influenza trivalent, with pr eservative (Fluzone; Afluria) 6mo and older 01/28/2010 Pneumococcal conjugate 13 va lent (Prevnar 13, PCV13) 2mo and older 05/31/2018 Pneumococcal polysaccharide 23 valent (Pneumovax 23) 2yo and older 05/24/2019 Surgical History Surgery Date Site/Laterality Comments PACEMAKER IMPLANT PROCEDURE: HISTORICAL PACEMAKER CORONARY ARTERY BYPASS GRAFT 10/2014 PROCEDURE: HISTORICAL CABG TOTAL KNEE ARTHROPLASTY 2018 Right PROCEDURE: HISTORICAL TOTAL KNEE REPLACE OTHER SURGICAL HISTORY 2014 PROCEDURE: ---- OTHER ----; COMMENT: Left stent superficial femoral artery STEREOTACTIC CORE BIOPSY 04/04/2006 - 04/03/2007 Right US BREAST BIOPSY 04/04/2008 - 04/03/2009 Right Medical History Medical History Date Comments HTN (hypertension) DX:HTN (hyper tension) HLD (hyperlipidemia) DX:HLD (hyp erlipidemia) CAD (coronary artery disease) DX :CAD (coronary artery disease); COMMENT: status post bypass surgery A-fib ([facility]) DX:A-fib ([facility]); COMMENT: on coumadin Sick sinus syndrome ([facility]) DX :Sick sinus syndrome ([facility]); COMMENT: with a dual chamber pacemaker in place. Peripheral vascular disease ([facility]) DX:Peripheral vascular disease ([facility]) PAF (paroxysmal atrial fibri llation) ([facility]) DX:PAF (paroxysmal atrial fibrillation) ([facility]) Plantar fasciitis DX:Plantar fas ciitis Claudication ([facility]) DX:Claudi cation ([facility]) Family History Medical History Relation Name Comments Breast cancer Mother Coronary artery disease Other Relation Name Status Comments Mother Other Social History Tobacco Use Types Packs/Day Years Used Date Smoking Tobacco: Former Cigarettes 0.5 36 0 04/04/1952 - 04/04/1988 Smokeless Tobacco: Never Tobacco Cessation:Counseling Given: Not Answered Alcohol Use Standard Drinks/Week Comments Not Currently 0 (1 standard drink = 0.6 oz pur e alcohol) Sex and Gender Information Value Date Recorded Sex Assigned at Not on file Gender Identity Not on file Sexual Orientation Not on file Job Start Date Occupation Industry Not on file Not on file Not on file Obstetrics History Para Term AB IAB SAB Ectopic Multiple Livin g Live Births 2 Last Filed Vital Signs Vital Sign Reading Time Taken Comments Blood Pressure 126/42 04/18/2024 2:13 PM EST Pulse 60 04/18/2024 2:13 PM EST Temperature 35.6 ??C (96 ??F) 04/06/2024 11:22 AM EST Respiratory Rate - - Oxygen Saturation 98% 04/18/2024 2:13 PM EST Inhaled Oxygen Concentration - - Weight 90.7 kg (200 lb) 04/24/2024 2:37 PM EST Height 165.1 cm (5' 5 ) 04/24/2024 2:37 PM EST Body Mass Index 33.28 04/24/2024 2:37 PM EST Plan of Treatment Upcoming Encounters Date Type Department Care Team (Late st Contact Info) Description 05/16/2024 1:45 PM EST Office Visit Orthopedic Surgery [facility] [address] [place] [phone] Dread Verde DPM [address] [place] [address] 06/06/2024 2:40 PM EST Office Visit [facility] - [facility] [address] [place] [phone] Jennifer Segundo NP [address] [place] [address] 07/23/2024 10:30 AM EDT Office Visit Orthopedic Surgery [facility] [address] [place] [phone] Aide Nguyen PA [address] [facility] [address] [place] [phone] 10/23/2024 2:00 PM EDT Ancillary Procedure [facility] [address] [facility] [address] [place] [phone] Scheduled Procedures Name Priority Associated Diagnoses Date/Ti me REPAIR HAMMER TOE Hammer toe of left foot Ulcer of toe of left foot, with fat layer exposed ([facility]) Health Maintenance Due Date Last Done Comments Diabetes: Annual Foot Exam 06/21/1945 Diabetes: Annual Retina Eye Exam 06/21/1945 DTaP,Tdap,and Td Vaccines (1 - Tdap) 1956 Zoster Vaccines (1 of 2) 1954 Depression Screening 03/13/2022 Falls Risk Assessment 03/13/2022 Medicare Annual Wellness Visit 03/13/2022 Osteoporosis Screening (Bone Density Screening) 03/13/2022 Social Influencers of Health Screening 03/13/2022 Diabetes: Blood Sugar Control Test (HGBA1C) 10/05/2023 04/06/2023 COVID-19 Vaccine ( season) 2023 01/12/2022, 01/08/2021, 06/02/2020, Additional history exists Hypertension/CHF/CAD Annual BMP Blood Test 04/06/2025 04/06/2024, 10/27/2023, 10/27/2023, Additional history exists Cholesterol Screening (Lipid Panel) 04/06/2029 04/06/2024, 10/27/2023, 10/27/2023 Pneumococcal Vaccine: 65+ Years Completed 05/24/2019, 05/31/2018 Influenza Vaccine Completed 02/24/2024, , 01/12/2022, Additional history exists RSV Immunization Patients 60+ Years Old Completed 04/10/2024 HIB Vaccines Aged Out No longer eligi ble based on patient's age to complete this topic HPV Vaccines Aged Out No longer eligi ble based on patient's age to complete this topic Hepatitis A Vaccines Aged Out No long er eligible based on patient's age to complete this topic Hepatitis B Vaccines Aged Out No long er eligible based on patient's age to complete this topic IPV Vaccines Aged Out No longer eligi ble based on patient's age to complete this topic MMR Vaccines Aged Out No longer eligi ble based on patient's age to complete this topic Meningococcal ACWY Vaccine Aged Out N o longer eligible based on patient's age to complete this topic RSV Immunization Patients Under 20 months Aged Out No longer eligible based on patient's age to complete this topic Varicella Vaccines Aged Out No longer eligible based on patient's age to complete this topic Medical Devices Implanted Type Area Seaming Inspector Device Identifier Shelf Expiration Date Model / Serial / Lot Abbt-Stju 2272 Assurity Mri(Tm) [id number] Implanted: (Quantity not on file) Cardiac Pacemaker Pony [employer]- [employer] 2272 ASSURITY MRI(TM) / [id number] / Procedures Procedure Name Priority Date/Time Associated Diagnosis Comments CARDIAC DEVICE CHECK- REMOTE- MURJ Routine 04/24/2024 12:24 PM EST ECG 12-LEAD Routine 04/18/2024 4:34 PM EST Atrial fibrillation, unspecified type (CMS/HCC) XR FOOT 3+ VIEWS LEFT Routine 04/16/2024 2:11 PM EST Follow-up exam CBC WITH AUTO DIFFERENTIAL Routine 04/06/2024 12:10 PM EST Longstanding persistent atrial fibrillation (CMS/HCC) Hypercholesterolemia Congestive heart failure, unspecified HF chronicity, unspecified heart failure type (CMS/HCC) THYROID STIMULATING HORMONE Routine 04/06/2024 12:10 PM EST Longstanding persistent atrial fibrillation (CMS/HCC) Hypercholesterolemia Congestive heart failure, unspecified HF chronicity, unspecified heart failure type (CMS/HCC) LIPID PANEL WITH REFLEX TO DIRECT LDL Routine 04/06/2024 12:10 PM EST Longstanding persistent atrial fibrillation (CMS/HCC) Hypercholesterolemia Congestive heart failure, unspecified HF chronicity, unspecified heart failure type (CMS/HCC) COMPREHENSIVE METABOLIC PANEL Routine 04/06/2024 12:10 PM EST Longstanding persistent atrial fibrillation (CMS/HCC) Hypercholesterolemia Congestive heart failure, unspecified HF chronicity, unspecified heart failure type (CMS/HCC) CBC AND DIFFERENTIAL Routine 04/06/2024 12:10 PM EST Longstanding persistent atrial fibrillation (CMS/HCC) Hypercholesterolemia Congestive heart failure, unspecified HF chronicity, unspecified heart failure type (CMS/HCC) MG MAMMO DIGITAL SCREENING W ROBE BILAT Routine 02/13/2024 11:18 AM EST Encounter for screening mammogram for breast cancer HEMOGLOBIN A1C Routine 04/06/2023 from Last 3 Months or Most Recently Relevant to Health Maintenance Results * Cardiac device check - Remote- MURJ (04/24/2024 12:24 PM EST) Date Time Interrogation Session [id number] CV DEVICE CHECK Type Interrogation Session Remote Scheduled CV DEVICE CHECK Implantable Pulse Generator Seaming Inspector [employer] CV DEVICE CHECK Implantable Pulse Generator Type IPG CV DEVICE CHECK Implantable Pulse Generator Model 2272 Assurity MRI(TM) CV DEVICE CHECK Implantable Pulse Generator Serial Number [id number] CV DEVICE CHECK Implantable Pulse Generator Implant Date 20221001 CV DEVICE CHECK Battery Remaining Percentage 83.00 CV DEVICE CHECK Battery Remaining Longevity 65.0 CV DEVICE CHECK Battery Voltage 2.980 CV D EVICE CHECK Battery ASSISTANT PROFESSOR SCULPTURE Trigger 2.600 CV DEVICE CHECK Battery Status Middle of Service CV DEVICE CHECK Nate Statistic RA Percent Paced 80.00 CV DEVICE CHECK Nate Statistic RV Percent Paced 99.00 CV DEVICE CHECK Atrial Tachy Statistic AT/AF [place] Percent 0.00 CV DEVICE CHECK Lead Channel [...] parameters reviewed * Presenting rhythm: AP - BATCH MIXER 60 bpm * Heart Rate Histograms reviewed [...] parameters reviewed * Presenting rhythm: AP - BATCH MIXER 60 bpm * Heart Rate Histograms reviewed Eduin Fairchild MD CV IMPLANTABLE CARDI AC DEVICE PROCEDURES * ECG 12 lead (04/18/2024 4:34 PM EST) Ventricular Rate ECG 60 BPM GEMUSE Atrial Rate 60 BPM GEMUSE P-R Interval 194 ms GEMUSE QRS Duration 158 ms GEMUSE Q-T Interval 490 ms GEMUSE QTc 490 ms GEMUSE P Wave [place] 49 degrees GEMUSE R [place] -125 degrees GEMUSE T [place] 74 degrees GEMUSE ECG Interpretation AV dual-paced rhythm Abnormal ECG Confirmed by ANY CASTRO ([id number]) on 04/18/2024 5:49:03 PM GEMUSE 04/18/2024 2:25 PM EST 04/18/2024 5:49 PM EST Jennifer Segundo CREDIT CONTROL CLERK ECG ORDERABLES GEMUSE * XR Foot 3+ Views Left (04/16/2024 2:11 PM EST) Anatomical Region Laterality Modality Lower Extremities, Foot Left Computed Radiography Narrative 04/23/2024 12:38 PM EST Left foot 3 views Nonweightbearing films hammertoe contractures 1 through 5 left foot No acute bony erosions of the distal phalanx left hallux Dread Verde DPM IMG XR PROCEDURES * Lipid panel with reflex to direct LDL (04/06/2024 12:10 PM EST) Cholesterol 154 0 - 200 mg/dL LAB CHEMISTRY METHOD 04/06/2024 3:06 PM EST [facility] Triglycerides 95 0 - 150 mg/dL LAB CHEMISTRY METHOD 04/06/2024 3:06 PM EST [facility] HDL 49 >=40 mg/dL LAB CHEMISTRY METHOD 04/06/2024 3:06 PM [facility] LDL Calculated 86 0 - 100 mg/dL LAB CHEMISTRY METHOD 04/06/2024 3:06 PM [facility] VLDL Cholesterol Ed 19 mg/dL LAB CHEMISTRY METHOD 04/06/2024 3:06 PM [facility] Non HDL Chol. (LDL+VLDL) 105 <145 mg/dL LAB CHEMISTRY METHOD 04/06/2024 3:06 PM [facility] Chol/HDL Ratio 3.1 0.0 - 4.4 LAB CHEMISTRY METHOD 04/06/2024 3:06 PM [facility] Blood Venous blood specimen / Unknown Venipuncture / Unknown 04/06/2024 12:10 PM EST 04/06/2024 12:10 PM EST Castro Cardoso MD LAB BLOOD ORDERABLES [facility] [address] [place] [address], * (ABNORMAL) CBC auto differential (04/06/2024 12:10 PM EST) WBC 7.2 4.8 - 10.8 K/mcL LAB HEMETOLOGY METHOD 04/06/2024 2:36 PM [facility] RBC 4.00 3.80 - 4.80 M/mcL LAB HEMETOLOGY METHOD 04/06/2024 2:36 PM [facility] Hemoglobin 12.9 11.5 - 16.0 g/dL LAB HEMETOLOGY METHOD 04/06/2024 2:36 PM [facility] Hematocrit 41.3 35.0 - 47.0 % LAB HEMETOLOGY METHOD 04/06/2024 2:36 PM [facility] MCV 102.2(H) 79.0 - 98.0 FL LAB HEMETOLOGY METHOD 04/06/2024 2:36 PM [facility] MCH 31.9 27.0 - 32.0 pcg LAB HEMETOLOGY METHOD 04/06/2024 2:36 PM [facility] MCHC 31.2(L) 32.0 - 37.0 g/dL LAB HEMETOLOGY METHOD 04/06/2024 2:36 PM [facility] RDW 13.5 11.0 - 15.0 % LAB HEMETOLOGY METHOD 04/06/2024 2:36 PM [facility] Platelets 187 130 - 400 K/mcL LAB HEMETOLOGY METHOD 04/06/2024 2:36 PM [facility] MPV 11.8(H) 7.0 - 11.0 FL LAB HEMETOLOGY METHOD 04/06/2024 2:36 PM [facility] NRBC 0.0 <1.0 % LAB HEMETOLOGY METHOD 04/06/2024 2:36 PM [facility] NRBC Absolute 0.00 <0.10 K/mcL LAB HEMETOLOGY METHOD 04/06/2024 2:36 PM [facility] Neutrophils Relative 66.3 % LAB HEMETOLOGY METHOD 04/06/2024 2:36 PM [facility] Lymphocytes Relative 22.0 % LAB HEMETOLOGY METHOD 04/06/2024 2:36 PM [facility] Monocytes Relative 8.8 % LAB HEMETOLOGY METHOD 04/06/2024 2:36 PM [facility] Eosinophils Relative 2.2 % LAB HEMETOLOGY METHOD 04/06/2024 2:36 PM [facility] Basophils Relative 0.3 % LAB HEMETOLOGY METHOD 04/06/2024 2:36 PM EST [facility] Immature Granulocytes Relative 0.4 % LAB HEMETOLOGY METHOD 04/06/2024 2:36 PM EST [facility] Neutrophils Absolute 4.80 1.50 - 7.00 K/mcL LAB HEMETOLOGY METHOD 04/06/2024 2:36 PM EST [facility] Lymphocytes Absolute 1.59 1.00 - 5.00 K/mcL LAB HEMETOLOGY METHOD 04/06/2024 2:36 PM EST [facility] Monocytes Absolute 0.64 0.20 - 1.00 K/mcL LAB HEMETOLOGY METHOD 04/06/2024 2:36 PM EST [facility] Eosinophils Absolute 0.16 0.00 - 0.50 K/mcL LAB HEMETOLOGY METHOD 04/06/2024 2:36 PM EST [facility] Basophils Absolute 0.02 0.00 - 0.20 K/mcL LAB HEMETOLOGY METHOD 04/06/2024 2:36 PM EST [facility] Immature Granulocytes Absolute 0.03 0.00 - 0.03 K/mcL LAB HEMETOLOGY METHOD 04/06/2024 2:36 PM EST [facility] Blood Venous blood specimen / Unknown Venipuncture / Unknown 04/06/2024 12:10 PM EST 04/06/2024 12:10 PM EST Castro Cardoso MD LAB BLOOD ORDERABLES [facility] [address] [place] [address], * Thyroid stimulating hormone (04/06/2024 12:10 PM EST) TSH 1.67 0.40 - 4.00 mcIU/mL LAB CHEMISTRY METHOD 04/06/2024 3:14 PM EST [facility] Blood Venous blood specimen / Unknown Venipuncture / Unknown 04/06/2024 12:10 PM EST 04/06/2024 12:10 PM EST Castro Cardoso MD LAB BLOOD ORDERABLES [facility] [address] [place] [address], * (ABNORMAL) Comprehensive metabolic panel (04/06/2024 12:10 PM EST) Sodium 138 133 - 145 mmol/L LAB CHEMISTRY METHOD 04/06/2024 3:34 PM [facility] Potassium 4.5 3.5 - 5.5 mmol/L LAB CHEMISTRY METHOD 04/06/2024 3:34 PM [facility] Chloride 106 96 - 110 mmol/L LAB CHEMISTRY METHOD 04/06/2024 3:34 PM [facility] CO2 30 21 - 32 mmol/L LAB CHEMISTRY METHOD 04/06/2024 3:34 PM [facility] Anion Gap 2(L) 3 - 11 LAB CHEMISTRY METHOD 04/06/2024 3:34 PM [facility] Glucose 90 70 - 100 mg/dL LAB CHEMISTRY METHOD 04/06/2024 3:34 PM [facility] BUN 29(H) 5 - 25 mg/dL LAB CHEMISTRY METHOD 04/06/2024 3:34 PM [facility] Creatinine 1.11(H) 0.50 - 1.10 mg/dL LAB CHEMISTRY METHOD 04/06/2024 3:34 PM [facility] eGFR 49(L) >=60 mL/min/1. 73m2 LAB CHEMISTRY METHOD 04/06/2024 3:34 PM [facility] Comment:Calculation based on the??Chronic Kidney Disease Epidemiology Collaboration (CKD-EPI) equation refit??without adjustment for race. BUN/Creatinine Ratio 26.1 LAB CHEMISTRY METHOD 04/06/2024 3:34 PM EST [facility] Calcium 9.4 8.5 - 10.5 mg/dL LAB CHEMISTRY METHOD 04/06/2024 3:34 PM [facility] AST (SGOT) 12 10 - 42 unit/L LAB CHEMISTRY METHOD 04/06/2024 3:34 PM [facility] ALT (SGPT) 21 10 - 60 unit/L LAB CHEMISTRY METHOD 04/06/2024 3:34 PM [facility] Alkaline Phosphatase 52 42 - 121 unit/L LAB CHEMISTRY METHOD 04/06/2024 3:34 PM [facility] Total Protein 6.6 6.0 - 8.0 g/dL LAB CHEMISTRY METHOD 04/06/2024 3:34 PM [facility] Albumin 3.8 3.2 - 5.0 g/dL LAB CHEMISTRY METHOD 04/06/2024 3:34 PM [facility] Total Bilirubin 0.6 0.0 - 1.4 mg/dL LAB CHEMISTRY METHOD 04/06/2024 3:34 PM [facility] Blood Venous blood specimen / Unknown Venipuncture / Unknown 04/06/2024 12:10 PM EST 04/06/2024 12:10 PM EST Castro Cardoso MD LAB BLOOD ORDERABLES Performing Organization Address City/State/[facility] Co de Phone Number [facility] [address] [place] [address], * MG Mammo Digital Screening w Robe bilat (02/13/2024 11:18 AM EST) Anatomical Region Laterality Modality Breast Bilateral Mammography 02/13/2024 3:59 PM EST Impressions 02/13/2024 4:00 PM EST Stable mammographic appearance of the breasts. No evidence of malignancy is seen. A negative mammogram in the presence of a clinically suspicious palpable abnormality does not preclude the possibility of malignancy or alter the indications for biopsy. BI-RADS CATEGORY: 2 - BENIGN RECOMMENDATION: Screening bilateral mammogram is recommended in 1 year. Mammo Location: [facility], [address] [place] [address], [id number], . -------- FINAL REPORT -------- Dictated By: Yessenia Santana Dictated Date: 02/13/2024 15:59 ET Assigned Physician: Yessenia Santana Reviewed and Electronically Signed By: Yessenia Santana Signed Date: 02/13/2024 16:00 ET Workstation ID: [id number] Transcribed By: Self Edit Transcribed Date: 02/13/2024 15:59 ET Narrative 02/13/2024 4:00 PM EST HISTORY: Screening. Previous right breast biopsies, pathology benign. Mother had breast carcinoma at age 82. COMPARISON: 02/11/23, 02/08/22, 01/26/21 ?? TECHNIQUE: Bilateral digital breast tomosynthesis was performed in the CC and MLO projections. Computer aided detection with Aceso[employer]ee AI 3D 3.1 was employed. BREAST DENSITY: B - There are scattered areas of fibroglandular density. FINDINGS: No suspicious masses, grouped microcalcifications, or areas of architectural distortion are seen. Benign rim calcifications are again seen. Vascular calcification is present. Multiple moles are noted on both breasts. A cardiac pacemaker is partially imaged in the left MLO view. Procedure Note Yessenia Santana MD - 02/13/2024 HISTORY: Screening. Previous right breast biopsies, pathology benign.Mother had breast carcinoma at age 82. COMPARISON: 02/11/23, 02/08/22, 01/26/21 TECHNIQUE: Bilateral digital breast tomosynthesis was performed in the CCand MLO projections. Computer aided detection with Aceso[employer]ee AI 3D 3.1was employed. BREAST DENSITY: B - There are scattered areas of fibroglandular density. FINDINGS: No suspicious masses, grouped microcalcifications, or areas ofarchitectural distortion are seen. Benign rim calcifications are againseen. Vascular calcification is present. Multiple moles are noted on bothbreasts. A cardiac pacemaker is partially imaged in the left MLO view. IMPRESSION: Stable mammographic appearance of the breasts. No evidence of malignancyis seen. A negative mammogram in the presence of a clinically suspicious palpableabnormality does not preclude the possibility of malignancy or alter theindications for biopsy. BI-RADS CATEGORY: 2 - BENIGN RECOMMENDATION: Screening bilateral mammogram is recommended in 1 year. Mammo Location: [facility], [address] [place] [address], [id number], . -------- FINAL REPORT -------- Dictated By: Yessenia Santana Dictated Date: 02/13/2024 15:59 ET Assigned Physician: Yessenia Santana Reviewed and Electronically Signed By: Yessenia Santana Signed Date: 02/13/2024 16:00 ET Workstation ID: [id number] Transcribed By: Self Edit Transcribed Date: 02/13/2024 15:59 ET Castro Cardoso MD IMG BI PROCEDURES * Hemoglobin A1c (04/06/2023) Hemoglobin A1C 6.2 6.5 % Blood Venous blood specimen / Unknown Historical Provider LAB BLOOD ORDERAB LES from Last 3 Months or Most Recently Relevant to Health Maintenance Advance Directives Documents on File Type Date Recorded Patient Special Police Expl anation Health Care Decision (hx) 05/22/2020 AD ALFONSO DIRECTIVE Health Care Decision (hx) 05/22/2020 AD ALFONSO DIRECTIVE Health Care Decision (hx) 05/22/2020 AD ALFONSO DIRECTIVE Health Care Decision (hx) 05/22/2020 AD ALFONSO DIRECTIVE Health Care Decision (hx) 05/22/2020 AD ALFONSO DIRECTIVE Health Care Decision (hx) 05/22/2020 AD ALFONSO DIRECTIVE Health Care Decision (hx) 05/22/2020 AD ALFONSO DIRECTIVE Health Care Decision (hx) 05/22/2020 AD ALFONSO DIRECTIVE Health Care Decision (hx) 05/22/2020 AD ALFONSO DIRECTIVE Health Care Decision (hx) 05/22/2020 AD ALFONSO DIRECTIVE Health Care Decision (hx) 05/22/2020 AD ALFONSO DIRECTIVE Health Care Decision (hx) 05/22/2020 AD ALFONSO DIRECTIVE Health Care Decision (hx) 05/22/2020 AD ALFONSO DIRECTIVE Health Care Decision (hx) 05/21/2020 AD ALFONSO DIRECTIVE Health Care Decision (hx) 05/21/2020 AD ALFONSO DIRECTIVE Health Care Decision (hx) 05/21/2020 AD ALFONSO DIRECTIVE Health Care Decision (hx) 05/21/2020 AD ALFONSO DIRECTIVE Health Care Decision (hx) 05/21/2020 AD ALFONSO DIRECTIVE Health Care Decision (hx) 05/21/2020 AD ALFONSO DIRECTIVE Health Care Decision (hx) 05/21/2020 AD ALFONSO DIRECTIVE Health Care Decision (hx) 05/21/2020 AD ALFONSO DIRECTIVE Health Care Decision (hx) 05/21/2020 AD ALFONSO DIRECTIVE Health Care Decision (hx) 05/21/2020 AD ALFONSO DIRECTIVE Health Care Decision (hx) 05/21/2020 AD ALFONSO DIRECTIVE Health Care Decision (hx) 05/21/2020 AD ALFONSO DIRECTIVE Health Care Decision (hx) 05/21/2020 AD ALFONSO DIRECTIVE Care Teams Human Intelligence Relationship Specialty Start Date End Date Castro Cardoso MD [address] [place] [id number] PCP - General Internal Medicine 03/08/13
--- OUTSIDE RECORDS SUMMARY | 2024-04-25 15:40 | XMS_ITS | Encounter Summary ---
[facility] [address] [place] [address] Care Team Providers Care Supervisor Ship Maintenance Services Name Role Phone Castro Cardoso MD Primary Care Provider [phone] Reason for Visit * Reason Comments Pain * Consultation (Routine) - Closed Specialty Diagnoses / Procedures Referred By Contmaryam t Referred To Contact Orthopaedic Surgery Diagnoses Carpal tunnel syndrome on left Castro Cardoso MD [address] [facility] [address] [facility] [address] [place] [address] Aide Nguyen PA [address] [facility] [address] [place] [address] Referral ID Status Reason Start Date Expiration Date V isits Requested Visits Authorized [id number] Closed Specialty Services Required 04/06/2024 04/06/2025 12 12 Encounter Details Date Type Department Care Team (Late st Contact Info) Description 04/24/2024 2:30 PM EST Office Visit Orthopedic Surgery - [place] [address] [place] [address] Aide Nguyen PA [address] [facility] [address] [place] [address] Carpal tunnel syndrome on left Social History Tobacco Use Types Packs/Day Years [...] on file documented as of this encounter Last Filed Vital Signs Vital Sign Reading Time Taken Comments Blood Pressure - - Pulse - - Temperature - - Respiratory Rate - - Oxygen Saturation - - Inhaled Oxygen Concentration - - Weight 90.7 kg (200 lb) 04/24/2024 2:37 PM EST Height 165.1 cm (5' 5 ) 04/24/2024 2:37 PM EST Body Mass Index 33.28 04/24/2024 2:37 PM EST documented in this encounter Progress Notes * JOIE Lanza - 04/24/2024 2:30 PM EST CHIEF COMPLAINT: Pain of the Left Wrist had concerns including Pain of the Left Wrist. IDENTIFIER: Madie Hernandez is a 88 y.o. old female SUBJECTIVE: Madie Hernandez is here for different problem of left hand pain and numbness tingling in thumb index and long finger ongoing for about a month. She sees our chemical production engineer for her foot. She states thisis a new problem that started all of a sudden. There is some pain but the biggest issue is the numbness tingling thumb index and long finger that can happen during the day and at night. No injury. She does have a brace which she has used during the day, that does help. No diabetes or thyroid problems no issues with her neck reported. PAST MEDICAL/SURGICAL HISTORY: Patient Active Problem List Diagnosis Date Noted Hammer toe of left foot 04/16/2024 Ulcer of toe of left foot, with fat layer exposed ([facility]) 04/16/2024 Atrial fibrillation ([facility]) 02/15/2024 CAD (coronary artery disease) 02/15/2024 History of coronary artery bypass surgery 02/15/2024 HLD (hyperlipidemia) 02/15/2024 HTN (hypertension) 02/15/2024 Epidermal inclusion cyst 04/14/2023 HFrEF (heart failure with reduced ejection fraction) ([facility]) 03/07/2023 SSS (sick sinus syndrome) ([facility]) 07/16/2021 Calculus of gallbladder without cholecystitis without obstruction 05/12/2021 Diverticulitis large intestine w/o perforation or abscess w/o bleeding 01/20/2021 Ventral hernia without obstruction or gangrene 01/20/2021 Pacemaker 05/02/2020 Chest pain 05/31/2018 Type 2 diabetes mellitus with complication, without long-term current use of insulin ([facility]) 05/31/2018 Seborrheic keratosis 02/22/2018 Past Surgical History: Procedure Laterality Date CORONARY ARTERY BYPASS GRAFT 10/2014 PROCEDURE: HISTORICAL CABG OTHER SURGICAL HISTORY 2014 PROCEDURE: ---- OTHER ----; COMMENT: Left stent superficial femoral artery PACEMAKER IMPLANT PROCEDURE: HISTORICAL PACEMAKER STEREOTACTIC CORE BIOPSY Right 2007 TOTAL KNEE ARTHROPLASTY Right 2018 PROCEDURE: HISTORICAL TOTAL KNEE REPLACE US BREAST BIOPSY Right 2008 MEDICATIONS DISCONTINUED/REORDERED: There are no discontinued medications. ACTIVE MEDICATIONS: Current Outpatient Medications on File Prior to Visit Medication Sig Dispense Refill apixaban (Eliquis) 5 mg tablet Take 1 tablet (5 mg total) by mouth 2 (two) times a day. 180 tablet 2 aspirin 81 mg EC tablet Take 1 tablet (81 mg total) by mouth 1 (one) time each day. calcium carbonate 1,500 mg (600 mg elemental calcium) tablet Take 1 tablet (1,500 mg total) by mouth 1 (one) time each day. carvediloL (COREG) 12.5 mg tablet Take 1 tablet (12.5 mg total) by mouth 2 (two) times a day with meals. dapagliflozin propanediol (FARXIGA) 10 mg tablet Take 1 tablet (10 mg total) by mouth 1 (one) time each day. 90 tablet 1 ezetimibe (ZETIA) 10 mg tablet Take 1 tablet (10 mg total) by mouth 1 (one) time each day. furosemide (LASIX) 40 mg tablet Take 1 tablet (40 mg total) by mouth 1 (one) time each day. isosorbide mononitrate (IMDUR) 30 mg 24 hr tablet Take 1 tablet (30 mg total) by mouth 1 (one) timeeach day. lidocaine (LIDODERM) 5 % patch Apply 1 patch topically 1 (one) time each day. Remove & discard patch within 12 hours or as directed by MD. magnesium oxide (MAG-OX) 400 mg (241.3 elemental magnesium) tablet Take 400 mg by mouth daily. niacin (SLO-NIACIN) 500 mg CR tablet Take 2 tablets (1,000 mg total) by mouth 1 (one) time each day. rosuvastatin (CRESTOR) 10 mg tablet Take 1 tablet (10 mg total) by mouth 1 (one) time each day. 90 tablet 1 sacubitriL-valsartan (Entresto) 49-51 mg per tablet Take 1 tablet by mouth 2 (two) times a day. spironolactone (ALDACTONE) 25 mg tablet Take 0.5 tablets (12.5 mg total) by mouth 1 (one) time eachday. [DISCONTINUED] clotrimazole-betamethasone (LOTRISONE) 1-0.05 % cream [DISCONTINUED] rosuvastatin (CRESTOR) 5 mg tablet TAKE 2 TABLETS BY MOUTH EVERY THIRD DAY [DISCONTINUED] warfarin (COUMADIN) 5 mg tablet TAKE 1 TABLET BY MOUTH DAILY. MAY CAUSE HEAVY BLEEDING.TAKE AT SAME TIME EVERY DAY. DO NOT CHANGE DIETARY HABITS No current facility-administered medications on file prior to visit. ALLERGIES: Allergies Allergen Reactions Amoxicillin Diarrhea Gigxyuu-Ytp-Neq Reductase Inhibitors Other reaction(s): Myalgia PHYSICAL EXAM: Visit Vitals Ht 1.651 m (65 ) Wt 90.7 kg (200 lb) BMI 33.28 kg/m?? OB Status Postmenopausal Smoking Status Former BSA 1.98 m?? APPEARANCE: Alert and in no acute distress EYES: conjunctivae and sclerae normal NECK: Supple, full range of motion EXTREMITIES: Extremities warm and well perfused without clubbing, cyanosis, or edema Left hand diffuse arthritic changes. Significant prominence to left thumb basal joint. Mild pain topalpation. Negative grind test. She can make a full fist with hypothenar, thenar interosseous musculature intact. She can abduct and adduct the fingers fully. Positive Tinel's, Phalen's and Durkan's test on the left. VASCULAR:well perfused with normal pulses in the distal extremities and no peripheral edema noted NEURO: Awake, alert and oriented SKIN: Skin color, texture, turgor normal. No rashes or lesions. PSYCH: does not appear depressed or anxious and oriented to time, place and person LABS/IMAGING: Lab Results Component Value Date HGBA1C 6.2 04/06/2023 Xrays reviewed: None IMPRESSION: 1. Carpal tunnel syndrome on left PLAN: The details of the visit were reviewed with the patient. Pertinent history, and objective findings were reviewed, along with the diagnoses: Left carpal tunnel syndrome. Symptoms have only been ongoing a month and are relatively mild. She is getting some nighttime symptoms but they have been intermittent. Discussed with patient treatment options ranging from bracing particularly trying the brace at night and during the day if needed, did discuss cortisone injection, and lastly surgery. At this juncture would not recommend surgery. She is can to continue with bracing but wear it at nighttime, while she sleeps and during the day if needed. If symptoms worsen would recommend cortisone injectionas the next step. Follow-up in 3 months time. If she is having minimal symptoms she can cancel that appointment. Madie Hernandez acknowledges understanding of the above plan and agrees to follow recommendationsand/or take medications as prescribed. No orders of the defined types were placed in this encounter. @ELECSIG@ documented in this encounter Plan of Treatment Upcoming Encounters Date Type Department Care Team (Late st Contact Info) Description 05/16/2024 1:45 PM EST Office Visit Orthopedic Surgery [facility] [address] [facility] [address] [place] [phone] [facility] [place] DPM [address] [place] [address] 06/06/2024 2:40 PM EST Office Visit [facility] [address] [place] [phone] Jennifer Segundo NP [address] [place] [address] [address] [place] [address] 07/23/2024 10:30 AM EDT Office Visit Orthopedic Surgery [facility] [address] [facility] [address] [place] [phone] Aide Nguyen PA [address] [facility] [address] [place] [address] 10/23/2024 2:00 PM EDT Ancillary Procedure [facility] [address] [facility] [address] [place] [address] Scheduled Procedures Name Priority Associated Diagnoses Date/Ti me REPAIR HAMMER TOE Hammer toe of left foot Ulcer of toe of left foot, with fat layer exposed (CMS/HCC) documented as of this encounter Visit Diagnoses Diagnosis Carpal tunnel syndrome on left Carpal tunnel syndrome Encounter for adjustment or management of cardiac device documented in this encounter Orders Outpatient Referral Count Last Ordered Date Fir st Ordered Date AMB REFERRAL TO HAND SURGERY 1 04/24/2024 documented in this encounter Care Teams Supervisor Ship Maintenance Services Relationship Specialty Start Date End Date Castro Cardoso MD [address] [facility] [address] [place] [address] PCP - General Internal Medicine 03/08/13 documented as of this encounter
--- OUTSIDE RECORDS SUMMARY | 2024-04-25 15:40 | XMS_ITS | Encounter Summary ---
Author Organization [employer] Address [address] [place] [address] Care Team Providers Care Press Service Reader Name Role Phone Castro Cardoso MD Primary Care Provider [phone] Reason for Visit * Reason Comments Follow-up Left great toe pain Encounter Details Date Type Department Care Team ([facility] Contact Info) Description 04/16/2024 1:45 PM EST Office Visit Orthopedic Surgery - [place] [address] [address] Dread Verde, DPM [address] [place] [address] Hammer toe of left foot (Primary Dx); Follow-up exam; Ulcer of toe of left foot, with fat layer exposed (CMS/HCC) Social History Tobacco Use Types Packs/Day Years Used Date Smoking Tobacco: Former Cigarettes 0.5 36 0 04/04/1952 - 04/04/1988 Smokeless Tobacco: Never Tobacco Cessation:Counseling Given: Not Answered Alcohol Use Standard Drinks/Week Comments Yes 0 [...] - Inhaled Oxygen Concentration - - Weight 89.8 kg (198 lb) 04/16/2024 2:07 PM EST Height 165.1 cm (5' 5 ) 04/16/2024 2:07 PM EST Body Mass Index 32.95 04/16/2024 2:07 PM EST documented in this encounter Progress Notes * Dread Verde DPM - 04/16/2024 1:45 PM EST Last PCP visit:Referring MD: Castro Cardoso MD 01/19/2024 IDENTIFIER: David is a 88 y.o. year old female who presents for consultation. CC: Foot pain HPI: Patient presents today for evaluation of her feet she has chronic recurring ulceration of her left great toe was referred to our office for surgical consultation has been seen for worsening chronic ulceration of the left great toe as well as a long painful thickened fungal nails and skin she was last seen by [facility] in 10/25/2023 has a long and painful thickened fungal nails andskin chronically painful and achy ROS: GENERAL: Pt denies nausea, fever, vomiting, chills, or shortness of breath. Pt in NAD. CARDIOLOGY: pt denies chest pain, palpitations LUNGS: pt denies shortness of breath MUSCULOSKELETAL: See HPI, otherwise no joint pain or swelling, back pain, or muscle pain. SKIN: see HPI, otherwise no lesions, rash or itching NEURO: No persistent headache, weakness or numbness The remainder of the review of systems is noncontributory PAST MEDICAL HISTORY: Patient Active Problem List Diagnosis Atrial fibrillation ([facility]/HCC) CAD (coronary artery disease) Calculus of gallbladder without cholecystitis without obstruction Chest pain Diverticulitis large intestine w/o perforation or abscess w/o bleeding Epidermal inclusion cyst HFrEF (heart failure with reduced ejection fraction) ([facility]) History of coronary artery bypass surgery HLD (hyperlipidemia) HTN (hypertension) Pacemaker Seborrheic keratosis SSS (sick sinus syndrome) ([facility]) Type 2 diabetes mellitus with complication, without long-term current use of insulin ([facility]) Ventral hernia without obstruction or gangrene SOCIAL HISTORY: Social History Tobacco Use Smoking status: Former Current packs/day: 0.00 Average packs/day: 0.5 packs/day for 36.0 years (18.0 ttl pk-yrs) Types: Cigarettes Start date: 04/04/1952 Quit date: 04/04/1988 Years since quittin.0 Smokeless tobacco: Never Substance Use Topics Alcohol use: Yes ACTIVE MEDICATIONS: No outpatient medications have been marked as taking for the 04/16/24 encounter (Office Visit) with Dread Verde DPM. ALLERGIES: Allergies Allergen Reactions Amoxicillin Diarrhea Konxbwj-Zpi-Inl Reductase Inhibitors Other reaction(s): Myalgia PHYSICAL EXAM: Visit Vitals Ht 1.651 m (65 ) Wt 89.8 kg (198 lb) BMI 32.95 kg/m?? OB Status Postmenopausal Smoking Status Former BSA 1.97 m?? PODIATRIC EXAMINATION: GENERAL: Patient appears well nourished, with NAD. VASCULAR: Dorsalis pedis pulses are 1/4 bilaterally and Posterior tibial pulses are 1/4 bilaterally. Capillary filling time within normal limits the digits. No pallor on elevation or rubor on dependency. Positive hair growth. No varicosities. Denies rest pain or claudication pain. NEUROLOGICAL: Sharp/dull sensation , protective sensation 7/10 with 5.07 semmes jody bilaterally, vibratory sensation with tuning fork intact to the tibial tuberosity. ORTHOPEDIC: Good muscle strength 5/5 of all flexors and extensors. Dorsi flexion of ankle ,10 degrees, plantar flexion WNL. No muscle atrophy. DERMATOLOGICAL:. Toenails: Left Toenail(s) 1-5: Crumbling upon debridement, subungual debris, discoloration, dystrophy, elongation, mycotic appearance, onychomycosis, pain and thickening. Right Toenail(s) 1-5: Crumbling upon debridement, subungual debris, discoloration, dystrophy, elongation, mycotic appearance, onychomycosis, pain and thickening. Annular scaling bilateral feet moccasin distribution Skin thinning texture shiny appearance diffuse hyperpigmentation bilaterally pedal hair decreased ULCER: LOCATION left hallux, SIZE, 3 mm x 3 mm x 3 mm, BASE, fibro-granular, RIM, hyperkeratotic, UNDERMINING, mild, TRACKING, Sub Q with Fat layer exposed,NECROTIC TISSUE, loosely-adherent yellow slough, DRAINAGE, serous, moderate, MALODOR, absent, CALOR, absent, ERYTHEMA, absent. BIOMECHANICS: Ankle ROM WNL, STJ ROM crepitation , MTJ ROM crepitation , 1st MPJ ROM crepitation . Rigidity left hallux and hammertoe contracture deformity left great toe with arthritis of both feet crepitation of all joints IMAGING: IMPRESSION: 1. Hammer toe of left foot 2. Follow-up exam 3. Ulcer of toe of left foot, with fat layer exposed (CMS/HCC) PLAN: Pt was seen and examined, history reviewed. Hammertoe contracture left hallux was discussed and reviewed causing pressure- point ulceration of the tip of the left great toe Aggressive offloading padding was placed in patient's current insoles to help offload the tip of her toe X-ray ordered left foot 3 views Surgical options were discussed specific to flexor tenotomy arthrodesis and partial excision of hallux it is all possible treatment modalities Plan to pursue partial excision of hallux tip secondary Discussed with patient regarding proper glucose control, exercise, and diet. Explained to patient proper shoe gear, and importance of daily foot checks. I reviewed neuropathy and why it occurs in diabetics. I educated the patient on proper blood sugar control and the importance of an HgBA1c of less than 7.0%. I reviewed the signs and symptoms of neuropathy with the patient Follow-up in 2 to 4 weeks Open wound Open wound selective debridement of devitalized soft tissue, fibrin, epidermis, dermis, thru skin and subcutaneous tissue, first 20 sq cm or less, using sterile sharp dissection #15 scalpel blade. Pt. deferred anesthesia. . Devitalized tissue was not sent to pathology. Patient is now failed ulcerative care for prolonged period of time with no improvement due to risk of infection processes discussed surgical treatments for more definitive diagnosis she continues to fail conservative treatments of padding placed in previous insoles and orthotics During today???s visit we discussed at great length the etiology, prognosis, and treatment options for the patient???s condition. Risks and benefits of operative and non operative treatment options were discussed. Treatment options for excision of wound with hammertoe correction left hallux correction were discussed, non-operative treatment would involve tapping, strapping, adjustments in shoe gear, orthotics insoles, rest, bracing and edema control. There is potential for the deformities to stabilize without surgery yet there may still be a need for delayed surgery and distructive procedures. There is potential for non-union with surgery and non-operative care would avoid incision problems and anesthesia risks. Surgery has added risks including but not limited to infection, incision pain, neuritis or numbness reoccurance of deformity, scar tissue contracture, worsening of deformity and loss of limb or life. Hammertoe correction left hallux healing was discussed in relation to operative treatment. Recovery and post operative immobilization was discussed based on the various treatment options. A decision was made to pursue hammertoe correction left hallux surgery. Patient voices understanding of the risks and benefits and would like to proceed with surgery. Weight bearing status: NWB x 2 weeks followed by progressive WB x 10 weeks in a below the knee boot. Work&Activity restrictions: Impact of undergoing surgery to work and daily activity was discussed today Pain management: Postoperative pain regiment were discussed in great detail with the patient. The patient was also encouraged to aggressively elevate and ice postoperatively to help with swelling andpain control. The patient was in agreement with this plan. The patient will be prescribed Tylenol Oxycodone for postoperative pain management. VTE Risk assessment: Risk of DVT/ PE were discussed in relation to immobilization, inactivity, injury, surgery, medication and personal risk factors. Signs and symptoms of a blood clot were discussedincluding action plan if the patient experiences these signs or symptoms. Methods of prevention and risk reduction were explained. Mechanical prophylaxis including ROM and mobilization is encouraged as much as possible. The patient???s risk for deep vein thrombosis was also assessed today. In regards to major risk factors they: Do not have personal history of DVT Do not have known active cancer Do not have known clotting disorder Do not have family history of DVT Pending foot surgery and current level of immobilization are risk factors. Measure taken to decrease their risk of deep vein thrombosis will consist of detailed education, as well as lower extremity range of motion. Chemical prophylaxis is not recommended based on patients history, procedure and postoperative plan. Planned procedure(s): Hammertoe correction left hallux with removal of distal phalanx that surgery WB status: WB x 4 weeks in a below the knee boot. Pain medication: Tylenol Oxycodone Dread Verde DPM documented in this encounter Plan of Treatment Upcoming Encounters Date Type Department Care Team ([facility] Contact Info) Description 05/16/2024 1:45 PM EST Office Visit Orthopedic Surgery - [address] [phone] Dread Verde DPM [address] [place] [address] 06/06/2024 2:40 PM EST Office Visit [facility] Cardiology [facility] [address] [place] [id number] Jennifer Segundo, CIERRA [address] [facility] [address] [place], [place] [id number] 07/23/2024 10:30 AM EDT Office Visit Orthopedic Surgery - [place] [address] [facility] [address] [place] [phone] Aide Nguyen PA [address] [facility] [address] [place] [phone] 10/23/2024 2:00 PM EDT Ancillary Procedure [facility] [address] [facility] [address] [place] [id number] Scheduled Procedures Name Priority Associated Diagnoses Date/Ti me REPAIR HAMMER TOE Hammer toe of left foot Ulcer of toe of left foot, with fat layer exposed (CMS/HCC) documented as of this encounter Results * XR Foot 3+ Views Left (04/16/2024 2:11 PM EST) Anatomical Region Laterality Modality Lower Extremities, Foot Left Computed Radiography Narrative 04/23/2024 12:38 PM EST Left foot 3 views Nonweightbearing films hammertoe contractures 1 through 5 left foot No acute bony erosions of the distal phalanx left hallux Dread BURTONM IMG XR PROCEDURES documented in this encounter Visit Diagnoses Diagnosis Hammer toe of left foot- Primary Follow-up exam Unspecified follow-up examination Ulcer of toe of left foot, with fat layer exposed (CMS/HCC) Encounter for adjustment or management of cardiac device documented in this encounter Orders Case Request Count Last Ordered Date First Orde red Date CASE REQUEST OPERATING ROOM 1 04/16/2024 documented in this encounter Care Teams Press Service Reader Relationship Specialty Start Date End Date Castro Cardoso MD [address] [place] [address] PCP - General Internal Medicine 03/08/13 documented as of this encounter
--- OUTSIDE RECORDS SUMMARY | 2024-04-25 15:40 | XMS_ITS | Encounter Summary ---
Author Organization [facility] Address [address] [place] [address] Care Team Providers Care Cafe Operator Name Role Phone Castro Cardoso MD Primary Care Provider [phone] Reason for Visit * Reason Comments Follow-up * Other Medical (Routine) - Authorized Specialty Diagnoses / Procedures Referred By Contac t Referred To Contact Cardiology Diagnoses [Per AB Return in about 6 months (around 03/06/2024), jenifer 09/05/23 w/AB, prev KR pt] 03/26/24 bkd w/pt per [facility] Procedures OFFICE VISIT Castro Cardoso MD 175 [facility] [address] [place] [address] spv [facility]nem[facility] [address] [place] [address] Referral ID Status Reason Start Date Expiration Date V isits Requested Visits Authorized [id number] Authorized 07/12/2023 07/11/2024 4 4 Encounter Details Date Type Department Care Team (Latest Contact Info) Description 04/18/2024 2:10 PM EST Office Visit [facility] [address] [place] [address] Jennifer Segundo NP [address] [place] [address] [address] [place] [address] Coronary artery disease involving kasaan coronary artery of kasaan heart without angina pectoris (Primary Dx); HFrEF (heart failure with reduced ejection fraction) (CMS/HCC); Atrial fibrillation, unspecified type (CMS/HCC); Primary hypertension; Pacemaker; SSS (sick sinus syndrome) ([facility]); Mixed hyperlipidemia Social History Tobacco Use Types Packs/Day Years [...] Pulse 60 04/18/2024 2:13 PM EST Temperature - - Respiratory Rate - - Oxygen Saturation 98% 04/18/2024 2:13 PM EST Inhaled Oxygen Concentration - - Weight 93.5 kg (206 lb 1.6 oz) 04/18/2024 2:13 P M EST Height 165.1 cm (5' 5 ) 04/18/2024 2:13 PM EST Body Mass Index 34.3 04/18/2024 2:13 PM EST documented in this encounter Ordered Prescriptions Prescription Sig Dispensed Refills Start Date End Da te rosuvastatin (CRESTOR) 10 mg tablet Take 1 tablet (10 mg total) by mouth 1 (one) time each day. 90 tablet 1 04/18/2024 dapagliflozin propanediol (FARXIGA) 10 mg tablet Take 1 tablet (10 mg total) by mouth 1 (one) time each day. 90 tablet 1 04/18/2024 documented in this encounter Progress Notes * Jennifer Segundo, CIERRA - 04/18/2024 2:10 PM EST Images from the original note were not included. [facility]IMARY [facility] [place]: Previously seen by Dr. Mac Schreiber PCP: Castro Cardoso MD HPI: Madie Hernandez is a 88 y.o. old female with history of hypertension, hyperlipidemia, coronary artery disease status post bypass surgery, atrial fibrillation on Coumadin and sick sinus syndrome. Patient has history of a dual- chamber pacemaker however this was recently upgraded to a biventricular device given her reduced left ventricular systolic function. Patient had generator change 10/01/2022. She has an [employer] MRI compatible model number PM [id number] serial #[id number]. Right atrial lead [employer] model #1888 TC serial number [id number] implanted 11/29/2013. Right ventricular pacing lead [employer] model #188 TC serial number [id number] implanted 11/29/2013. Implanted left bundle lead [employer] tendril STS model 2088 TC serial number [id number] implanted 10/01/2022. Echocardiogram completed 09/2022 showed a normal left ventricular chamber size, mild concentric leftventricular hypertrophy, mild to moderately reduced left ventricular systolic function with an LVEFof 40 to 45%. Right ventricular global systolic function was reduced. There was moderate mitral regurgitation, moderate tricuspid regurgitation and mild pulmonary insufficiency. Sinuses of Valsalva me asuring 3.9 cm in the ascending aorta measuring 3.2 cm. When compared to previous echocardiogram from 2016 LVEF had decreased from 50 to 55%. As such the patient had left bundle a single lead implanted during recent generator change. Nuclear stress test was completed 03/2023. Perfusion images demonstrated a large transmural infarctin the entire apex, mid to apical inferior wall and apical lateral wall. There is no obvious ischemia. This defect was not previously noted. Echocardiogram completed 07/2023 showed normal left ventricular chamber size, mild concentric left ventricular hypertrophy, global hypokinesis and apical aneurysm. Mildly reduced left ventricular systolic function with an LVEF of 40 to 45%. Moderate tricuspid regurgitation. I have obtained verbal consent from Madie Hernandez prior to the recording. I have advised Madie Hernandez that she may refuse the recording and require the recording to be turned off at any timeduring this encounter. History of Present Illness The patient presents today for a routine cardiac follow-up. She is accompanied by her . She reports experiencing severe back pain and a sore toe. She also has carpal tunnel syndrome. She does not experience any chest pain, shortness of breath, lightheadedness, dizziness, or syncope. Shereports no bleeding issues. She is currently on Eliquis. She is compliant with her medication regimen and does not require any refills at this time. She has not experienced any chest pain or the needfor sublingual nitroglycerin. She expresses concern about the diuretic's potency, as it appears to increase her urinary output. She is not experiencing any muscle aches or pains associated with rosuvastatin, although she has had such symptoms with other statins in the past. ACTIVE MEDICATIONS: Current Outpatient Medications Medication Instructions apixaban (ELIQUIS) 5 mg, oral, 2 times daily aspirin 81 mg, oral, Daily calcium carbonate 1,500 mg (600 mg elemental calcium) tablet 1 tablet, oral, Daily carvediloL (COREG) 12.5 mg tablet 1 tablet, oral, 2 times daily with meals dapagliflozin propanediol (FARXIGA) 10 mg, oral, Daily ezetimibe (ZETIA) 10 mg tablet 1 tablet, oral, Daily furosemide (LASIX) 40 mg tablet 1 tablet, oral, Daily isosorbide mononitrate (IMDUR) 30 mg 24 hr tablet 1 tablet, oral, Daily lidocaine (LIDODERM) 5 % patch 1 patch, Topical, Daily, Remove & discard patch within 12 hours or as directed by MD. magnesium oxide (MAG-OX) 400 mg (241.3 elemental magnesium) tablet Take 400 mg by mouth daily. niacin (SLO-NIACIN) 1,000 mg, oral, Daily rosuvastatin (CRESTOR) 10 mg, oral, Daily sacubitriL-valsartan (Entresto) 49-51 mg per tablet 1 tablet, oral, 2 times daily spironolactone (ALDACTONE) 12.5 mg, oral, Daily PAST MEDICAL HISTORY: Patient Active Problem List Diagnosis Atrial fibrillation ([facility]) CAD (coronary artery disease) Calculus of gallbladder without cholecystitis without obstruction Chest pain Diverticulitis large intestine w/o perforation or abscess w/o bleeding Epidermal inclusion cyst HFrEF (heart failure with reduced ejection fraction) ([facility]) History of coronary artery bypass surgery HLD (hyperlipidemia) HTN (hypertension) Pacemaker Seborrheic keratosis SSS (sick sinus syndrome) ([facility]) Type 2 diabetes mellitus with complication, without long-term current use of insulin ([facility]) Ventral hernia without obstruction or gangrene Hammer toe of left foot Ulcer of toe of left foot, with fat layer exposed ([facility]) ALLERGIES: Allergies Allergen Reactions Amoxicillin Diarrhea Qsvsuif-Bxl-Mdq Reductase Inhibitors Other reaction(s): Myalgia SOCIAL HISTORY: Social History Tobacco Use Smoking status: Former Current packs/day: 0.00 Average packs/day: 0.5 packs/day for 36.0 years (18.0 ttl pk-yrs) Types: Cigarettes Start date: 04/04/1952 Quit date: 04/04/1988 Years since quittin.0 Smokeless tobacco: Never Substance Use Topics Alcohol use: Not Currently PHYSICAL EXAM: Vitals: 04/18/24 1413 BP: (!) 126/42 BP Location: Right arm Patient Position: Sitting BP Cuff Size: Adult Pulse: 60 SpO2: 98% Weight: 93.5 kg (206 lb 1.6 oz) Height: 1.651 m (65 ) Physical Exam Constitutional: General: She is not in acute distress. Appearance: She is not diaphoretic. HENT: Head: Normocephalic. Eyes: Pupils: Pupils are equal, round, and reactive to light. Neck: Vascular: No carotid bruit. Cardiovascular: Rate and Rhythm: Normal rate and regular rhythm. Pulses: Normal pulses. Heart sounds: Normal heart sounds. No murmur heard. No friction rub. Pulmonary: Effort: Pulmonary effort is normal. No respiratory distress. Breath sounds: Normal breath sounds. No stridor. No wheezing, rhonchi or rales. Chest: Chest wall: No tenderness. Abdominal: General: Bowel sounds are normal. There is no distension. Palpations: Abdomen is soft. Tenderness: There is no abdominal tenderness. Musculoskeletal: General: No deformity. Cervical back: Normal range of motion. Right lower leg: No edema. Left lower leg: No edema. Skin: General: Skin is warm and dry. Neurological: Mental Status: She is alert and oriented to person, place, and time. Psychiatric: Mood and Affect: Mood normal. EKG: Encounter Date: 04/18/24 ECG 12 lead Result Value Ventricular Rate ECG 60 Atrial Rate 60 P-R Interval 194 QRS Duration 158 Q-T Interval 490 QTc 490 P Wave [place] 49 R [place] -125 T [place] 74 ECG Interpretation AV dual-paced rhythm Abnormal ECG *Note: Due to a large number of results and/or encounters for the requested time period, some results have not been displayed. A complete set of results can be found in Results Review. TESTING: Lab Results Component Value Date NA 138 04/06/2024 K 4.5 04/06/2024 CL 106 04/06/2024 CO2 30 04/06/2024 GLUCOSE 90 04/06/2024 BUN 29 (H) 04/06/2024 CREATININE 1.11 (H) 04/06/2024 CALCIUM 9.4 04/06/2024 PROT 6.6 04/06/2024 ALBUMIN 3.8 04/06/2024 BILITOT 0.6 04/06/2024 AST 12 04/06/2024 ALT 21 04/06/2024 ALKPHOS 52 04/06/2024 EGFR 49 (L) 04/06/2024 Lab Results Component Value Date CHOL 154 04/06/2024 CHOL 150 10/27/2023 Lab Results Component Value Date HDL 49 04/06/2024 HDL 43 10/27/2023 Lab Results Component Value Date LDLCALC 86 04/06/2024 Lab Results Component Value Date TRIG 95 04/06/2024 TRIG 124 10/27/2023 Lab Results Component Value Date CHOLHDL 3.1 04/06/2024 Lab Results Component Value Date TSH 1.67 04/06/2024 ASSESSMENT/PLAN: As per AHA guidelines and previously established plan of care, we discussed the following today: Assessment & Plan 1. Coronary artery disease. Patient has history of coronary artery disease status post bypass surgery in the past. She is feeling well and denies any exertional anginal symptoms. She continues on cardioprotective medical therapy with aspirin, beta-giovani isosorbide and statin. I have reviewed with the patient the importance of a heart healthy lifestyle which includes eating a low-fat low-salt diet, getting regular exercise, maintaining a healthy weight, not smoking, and following up with routine medical care. 2. HFrEF Patient has history of HFrEF with an EF of 40 to 45%. She her last noninvasive cardiac testing was with a nuclear stress test completed 03/2023 at which point there was no obvious ischemia. She is onappropriate guideline directed medical therapy with carvedilol 12.5 mg twice daily, Entresto 49/51 mg twice daily and spironolactone 12.5 mg daily. She is requiring furosemide 40 mg once a day to remain euvolemic. Today we discussed adding SGLT2 inhibitor, Farxiga. She is agreeable. The use of an SGLT2 inhibitor is recommended for patients with chronic heart failure in order to reduce hospitalization due to heart failure and cardiovascular mortality, irrespective of the presence of type 2 diabetes (class Ia recommendation from the 2021 [employer] heart failure guidelines). I will have her repeat a basic metabolic panel in 1 week. I will plan to see her back in 6 weeks for close follow-up. She has been warned of the potential for urinary tract infections or yeast infections and has an advised to call if she were to develop any of those issues. Patient advised to seekemergency medical attention by calling 911 if they were to develop severe dyspnea, chest pain that did not resolve with rest or nitroglycerin, or if they were to faint. I've asked the patient to call if they develop worsening symptoms of heart failure such as increased shortness of breath, new or worsening cough, increased swelling in the legs or ankles, or weight gain of more than 2 pounds in one day or 4 pounds in one week. 3. Sick sinus syndrome Patient has history of sick sinus syndrome status post pacemaker. Generator change 09/2022 with an upgrade to a biventricular device. Will continue with remote monitoring and routine visits to our device clinic. 4. Hyperlipidemia Patient's last LDL cholesterol was 86. This is above goal. I will increase her rosuvastatin from 5 mg to 10 mg and plan to repeat a lipid panel in 12 weeks. If she experiences any adverse effects with the increased dose of the rosuvastatin I have asked her to inform us immediately. I personally spent a total of 50 minutes, including both ntkm-ln-xszg and sxr-pwkm-gr-face time on the date of the encounter, addressing the above diagnoses. Activities performed in this time include chart review, obtaining / reviewing history, performing amedically necessary evaluation, documentation and counseling including medical decision making of high complexity. We had a long discussion regarding her comorbidities and recommendations for guideline directed medical therapy. We discussed potential adverse effects from medications at length and discussed potential resources in the community to help her payfor her medications. I also to explain the indications to her and I answered multiple questions. Follow-up The patient will follow up in 6 weeks. [facility] documented in this encounter Plan of Treatment Upcoming Encounters Date Type Department Care Team (Late st Contact Info) Description 05/16/2024 1:45 PM EST Office Visit Orthopedic Surgery [facility] [address] [facility] [address] [place] [phone] [facility] [address] [place] [address] 06/06/2024 2:40 PM EST Office Visit [facility] [address] [place] [id number] Jennifer Segundo NP [address] [place] [address] [address] [place] [address] 07/23/2024 10:30 AM EDT Office Visit Orthopedic Surgery [facility] [address] [facility] [address] [place] [phone] Aide Nguyen PA [address] [facility] [address] [place] [phone] 10/23/2024 2:00 PM EDT Ancillary Procedure [facility] Cardiology [facility] [address] [place] [phone] Pending Results Name Type Priority Associated Diagnoses Date /Time Basic metabolic panel Lab Routine Coronary artery disease involving kasaan coronary artery of kasaan heart without angina pectoris Primary hypertension 04/25/2024 3:32 PM EST Scheduled Orders Name Type Priority Associated Diagnoses Orde r Schedule Basic metabolic panel Lab Routine Coronary artery disease involving kasaan coronary artery of kasaan heart without angina pectoris Primary hypertension Expected: 04/25/2024, Expires: 04/18/2025 Lipid panel with reflex to direct LDL Lab Routine Coronary artery disease involving kasaan coronary artery of kasaan heart without angina pectoris Expected: 07/17/2024, Expires: 04/18/2025 Scheduled Procedures Name Priority Associated Diagnoses Date/Ti me REPAIR HAMMER TOE Hammer toe of left foot Ulcer of toe of left foot, with fat layer exposed (CMS/HCC) documented as of this encounter Procedures Procedure Name Priority Date/Time Associated Diagnosis Comments ECG 12-LEAD Routine 04/18/2024 4:34 PM EST Atrial fibrillation, unspecified type (CMS/HCC) documented in this encounter Results * ECG 12 lead (04/18/2024 4:34 PM EST) Ventricular Rate ECG 60 BPM GEMUSE Atrial Rate 60 BPM GEMUSE P-R Interval 194 ms GEMUSE QRS Duration 158 ms GEMUSE Q-T Interval 490 ms GEMUSE QTc 490 ms GEMUSE P Wave [place] 49 degrees GEMUSE R [place] -125 degrees GEMUSE T [place] 74 degrees GEMUSE ECG Interpretation AV dual-paced rhythm Abnormal ECG Confirmed by ANY CASTRO ([id number]) on 04/18/2024 5:49:03 PM GEMUSE 04/18/2024 2:25 PM EST 04/18/2024 5:49 PM EST Jennifer Segundo NP ECG ORDERABLES GEMUSE documented in this encounter Visit Diagnoses Diagnosis Coronary artery disease involving kasaan coronary artery of kasaan heart without angina pectoris- Primary HFrEF (heart failure with reduced ejection fraction) (CMS/HCC) Atrial fibrillation, unspecified type (CMS/HCC) Primary hypertension Unspecified essential hypertension Pacemaker Cardiac pacemaker in situ SSS (sick sinus syndrome) ([facility]/HCC) Sinoatrial node dysfunction Mixed hyperlipidemia Encounter for adjustment or management of cardiac device documented in this encounter Discontinued Medications Medication Sig Discontinue Reason Start Date End Da te clotrimazole-betametha sone (LOTRISONE) 1-0.05 % cream Discontinued by another clinician 11/04/2023 04/18/2024 warfarin (COUMADIN) 5 mg tablet TAKE 1 TABLET BY MOUTH DAILY. MAY CAUSE HEAVY BLEEDING.TAKE AT SAME TIME EVERY DAY. DO NOT CHANGE DIETARY HABITS Discontinued by another clinician 08/25/2023 04/18/2024 rosuvastatin (CRESTOR) 5 mg tablet TAKE 2 TABLETS BY MOUTH EVERY THIRD DAY Reorder 01/23/2024 04/18/2024 documented as of this encounter Care Teams Cafe Operator Relationship Specialty Start Date End Date Castro Cardoso MD [address] [address] PCP - General Internal Medicine 03/08/13 documented as of this encounter
--- OUTSIDE RECORDS SUMMARY | 2024-04-25 15:40 | XMS_ITS | Encounter Summary ---
Author Organization [facility] Address [address] [place] [address] Care Team Providers Care Mat Weaver Name Role Phone Castro Cardoso MD Primary Care Provider [phone] Reason for Referral * Consultation (Routine) - Closed Specialty Diagnoses / Procedures Referred By Contac t Referred To Contact Orthopaedic Surgery Diagnoses Carpal tunnel syndrome on left Castro Cardoso MD 175 [facility] [address] [place] [address] Aide Nguyen PA [address] [address] Referral ID Status Reason Start Date Expiration Date V isits Requested Visits Authorized [id number] Closed Specialty Services Required 04/06/2024 04/06/2025 12 12 Reason for Visit * Reason Comments Follow-up Encounter Details Date Type Department Care Team (Late st Contact Info) Description 04/06/2024 11:15 AM EST Office Visit Internal Medicine - [place] [address] [phone] Castro Cardoso MD [address] [id number] Congestive heart failure, unspecified HF chronicity, unspecified heart failure type (CMS/HCC) (Primary Dx); Longstanding persistent atrial fibrillation (CMS/HCC); Hypercholesterolemia; Carpal tunnel syndrome on left Social History Tobacco Use Types Packs/Day Years Used Date Smoking Tobacco: Former Cigarettes 0.5 36 0 04/04/1952 - 04/04/1988 Smokeless Tobacco: Never Alcohol Use Standard Drinks/Week Comments Yes 0 [...] Sign Reading Time Taken Comments Blood Pressure 130/62 04/06/2024 11:22 AM EST Pulse 60 04/06/2024 11:22 AM EST Temperature 35.6 ??C (96 ??F) 04/06/2024 11:22 AM EST Respiratory Rate - - Oxygen Saturation 93% 04/06/2024 11:22 AM EST Inhaled Oxygen Concentration - - Weight 89.9 kg (198 lb 3.2 oz) 04/06/2024 11:22 AM EST Height - - Body Mass Index 32.98 03/20/2024 2:36 PM EST documented in this encounter Progress Notes * Castro Cardoso MD - 04/06/2024 11:15 AM EST COMPLAINT medication review and testing IDENTIFIER: Madie Hernandez is a 88 y.o. old female. HPI: Congestive heart failure stable on multiple meds. Hyperlipidemia is under control .A-fib with stable ROS: GENERAL: No malaise, significant weight loss or fever RESPIRATORY: No cough, wheezing or shortness of breath CARDIOVASCULAR: No chest pain, leg swelling or palpitations GI: No abdominal discomfort, blood in stools or black stools PAST MEDICAL HISTORY: Patient Active Problem List Diagnosis Date Noted Atrial fibrillation ([facility]) 02/15/2024 CAD (coronary artery disease) 02/15/2024 History of coronary artery bypass surgery 02/15/2024 HLD (hyperlipidemia) 02/15/2024 HTN (hypertension) 02/15/2024 Epidermal inclusion cyst 04/14/2023 HFrEF (heart failure with reduced ejection fraction) ([facility]) 03/07/2023 SSS (sick sinus syndrome) ([facility]) 07/16/2021 Calculus of gallbladder without cholecystitis without obstruction 05/12/2021 Diverticulitis large intestine w/o perforation or abscess w/o bleeding 01/20/2021 Ventral hernia without obstruction or gangrene 01/20/2021 Pacemaker 05/02/2020 Chest pain 05/31/2018 Type 2 diabetes mellitus with complication, without long-term current use of insulin ([facility]) 05/31/2018 Seborrheic keratosis 02/22/2018 Past Surgical History: Procedure Laterality Date CORONARY ARTERY BYPASS GRAFT 10/2014 PROCEDURE: HISTORICAL CABG OTHER SURGICAL HISTORY 2014 PROCEDURE: ---- OTHER ----; COMMENT: Left stent superficial femoral artery PACEMAKER IMPLANT PROCEDURE: HISTORICAL PACEMAKER STEREOTACTIC CORE BIOPSY Right 2007 TOTAL KNEE ARTHROPLASTY Right 2018 PROCEDURE: HISTORICAL TOTAL KNEE REPLACE US BREAST BIOPSY Right 2009 SOCIAL HISTORY: Social History Tobacco Use Smoking status: Former Current packs/day: 0.00 Average packs/day: 0.5 packs/day for 36.0 years (18.0 ttl pk-yrs) Types: Cigarettes Start date: 04/04/1952 Quit date: 04/04/1988 Years since quittin.0 Smokeless tobacco: Never Substance Use Topics Alcohol use: Yes FAMILY HISTORY: Family History Problem Relation Name Age of Onset Breast cancer Mother 80 Coronary artery disease Other MEDICATIONS DISCONTINUED/REORDERED: There are no discontinued medications. ACTIVE MEDICATIONS: Outpatient Medications Marked as Taking for the 04/06/24 encounter (Office Visit) with Castro Cardoso MD Medication Sig Dispense Refill apixaban (Eliquis) 5 [...] 2 (two) times a day with meals. ezetimibe (ZETIA) 10 mg tablet Take 1 [...] niacin (SLO-NIACIN) 500 mg CR tablet Take 1 tablet (500 mg total) by mouth 2 (two) times a day withmeals. rosuvastatin (CRESTOR) 5 mg tablet TAKE 2 TABLETS BY MOUTH EVERY THIRD DAY sacubitriL-valsartan (Entresto) 49-51 mg per tablet Take 1 tablet by mouth 2 (two) times a day. spironolactone (ALDACTONE) 25 mg tablet Take 1 tablet (25 mg total) by mouth 1 (one) time each day. warfarin (COUMADIN) 5 mg tablet TAKE 1 TABLET BY MOUTH DAILY. MAY CAUSE HEAVY BLEEDING.TAKE AT SAMETIME EVERY DAY. DO NOT CHANGE DIETARY HABITS ALLERGIES: Allergies Allergen Reactions Amoxicillin Diarrhea Eegkwdy-Qwi-Ilf Reductase Inhibitors Other reaction(s): Myalgia PHYSICAL EXAM: Vitals: 04/06/24 1122 BP: 130/62 Pulse: 60 Temp: 35.6 ??C (96 ??F) SpO2: 93% APPEARANCE: Alert and in no acute distress EARS: External ears normal. HEART: RRR with normal S1 and S2, no murmurs LUNG: clear to auscultation LABS: No results found for: WBC , HGB , HCT , MCV No results found for: NA , K , CO2 , CL , BUN , GLU , ALB , ALKPHOS , TP No results found for: TSH Lab Results Component Value Date HGBA1C 6.2 04/06/2023 CHOL 150 10/27/2023 LDL 83 10/27/2023 HDL 43 10/27/2023 TRIG 124 10/27/2023 No components found for: URINELEUK , URINENITR , URINEPRO , URINEPH , URINEBLD , URINESG , URINEKET , URINEBILI , URINEGLUC IMAGING: IMPRESSION: 1. Congestive heart failure, unspecified HF chronicity, unspecified heart failure type (CMS/HCC) 2. Longstanding persistent atrial fibrillation (CMS/HCC) 3. Hypercholesterolemia PLAN: Congestive heart failure stable on Aldactone, Entresto, Crestor, Imdur, Lasix, Coreg, aspirin, Eliquis. A-fib is stable on Eliquis. Hyperlipidemia ,stable on Zetia and Crestor. check CBC, CMP, TSH, lipid panel. left-sided carpal tunnel syndrome, to use a hand brace at night, did refer to hand surgery. documented in this encounter Plan of Treatment Upcoming Encounters Date Type Department Care Team (Late st Contact Info) Description 05/16/2024 1:45 PM EST Office Visit Orthopedic Surgery [facility] 250 175 [facility] [address] [place] [phone] [facility] 175 [place] [address] 06/06/2024 2:40 PM EST Office Visit [facility] [address] [place] [address] [place] [phone] Jennifer Segundo NP [address] [place] [address] Dr [facility] [address] [place] [address] 07/23/2024 10:30 AM EDT Office Visit Orthopedic [facility] 175 [facility] [address] [place] [phone] Aide Nguyen PA 174 [facility] [address] [place] [phone] 10/23/2024 2:00 PM EDT Ancillary Procedure [facility] [address] 300 [facility] [address] [place] [phone] Scheduled Procedures Name Priority Associated Diagnoses Date/Ti me REPAIR HAMMER TOE Hammer toe of left foot Ulcer of toe of left foot, with fat layer exposed ([facility]) Scheduled Referrals Name Type Priority Associated Diagnoses Order Schedule Ambulatory referral to Hand Surgery Outpatient Referral Routine Carpal tunnel syndrome on left 1 Occurrences starting 04/06/2024 until 04/06/2025 documented as of this encounter Results * Thyroid stimulating hormone (04/06/2024 12:10 PM EST) TSH 1.67 0.40 - 4.00 mcIU/mL LAB CHEMISTRY METHOD 04/06/2024 3:14 PM [facility] Blood Venous blood specimen / Unknown Venipuncture / Unknown 04/06/2024 12:10 PM EST 04/06/2024 12:10 PM EST Castro Cardoso MD LAB BLOOD ORDERABLES [facility] [address] [place] [address], * Lipid panel with reflex to direct LDL (04/06/2024 12:10 PM EST) Cholesterol 154 0 - 200 mg/dL LAB CHEMISTRY METHOD 04/06/2024 3:06 PM [facility] Triglycerides 95 0 - 150 mg/dL LAB CHEMISTRY METHOD 04/06/2024 3:06 PM [facility] HDL 49 >=40 mg/dL LAB CHEMISTRY METHOD 04/06/2024 3:06 PM [facility] LDL Calculated 86 0 - 100 mg/dL LAB CHEMISTRY METHOD 04/06/2024 3:06 PM [facility] VLDL Cholesterol Ed 19 mg/dL LAB CHEMISTRY METHOD 04/06/2024 3:06 PM [facility] Non HDL Chol. (LDL+VLDL) 105 <145 mg/dL LAB CHEMISTRY METHOD 04/06/2024 3:06 PM [facility] Chol/HDL Ratio 3.1 0.0 - 4.4 LAB CHEMISTRY METHOD 04/06/2024 3:06 PM [facility] Blood Venous blood specimen / Unknown Venipuncture / Unknown 04/06/2024 12:10 PM EST 04/06/2024 12:10 PM EST Castro Cardoso MD LAB BLOOD ORDERABLES [facility] [address] [place] [address], * (ABNORMAL) Comprehensive metabolic panel (04/06/2024 12:10 PM EST) Sodium 138 133 - 145 mmol/L LAB CHEMISTRY METHOD 04/06/2024 3:34 PM [facility] Potassium 4.5 3.5 - 5.5 mmol/L LAB CHEMISTRY METHOD 04/06/2024 3:34 PM [facility] Chloride 106 96 - 110 mmol/L LAB CHEMISTRY METHOD 04/06/2024 3:34 PM [facility] CO2 30 21 - 32 mmol/L LAB CHEMISTRY METHOD 04/06/2024 3:34 PM [facility] Anion Gap 2(L) 3 - 11 LAB CHEMISTRY METHOD 04/06/2024 3:34 PM [facility] Glucose 90 70 - 100 mg/dL LAB CHEMISTRY METHOD 04/06/2024 3:34 PM [facility] BUN 29(H) 5 - 25 mg/dL LAB CHEMISTRY METHOD 04/06/2024 3:34 PM [facility] Creatinine 1.11(H) 0.50 - 1.10 mg/dL LAB CHEMISTRY METHOD 04/06/2024 3:34 PM [facility] eGFR 49(L) >=60 mL/min/1. 73m2 LAB CHEMISTRY METHOD 04/06/2024 3:34 PM [facility] Comment:Calculation based on the??Chronic Kidney Disease Epidemiology Collaboration (CKD-EPI) equation refit??without adjustment for race. BUN/Creatinine Ratio 26.1 LAB CHEMISTRY METHOD 04/06/2024 3:34 PM [facility] Calcium 9.4 8.5 - 10.5 mg/dL LAB CHEMISTRY METHOD 04/06/2024 3:34 PM [facility] AST (SGOT) 12 10 - 42 unit/L LAB CHEMISTRY METHOD 04/06/2024 3:34 PM [facility] ALT (SGPT) 21 10 - 60 unit/L LAB CHEMISTRY METHOD 04/06/2024 3:34 PM [facility] Alkaline Phosphatase 52 42 - 121 unit/L LAB CHEMISTRY METHOD 04/06/2024 3:34 PM [facility] Total Protein 6.6 6.0 - 8.0 g/dL LAB CHEMISTRY METHOD 04/06/2024 3:34 PM [facility] Albumin 3.8 3.2 - 5.0 g/dL LAB CHEMISTRY METHOD 04/06/2024 3:34 PM [facility] Total Bilirubin 0.6 0.0 - 1.4 mg/dL LAB CHEMISTRY METHOD 04/06/2024 3:34 PM [facility] Blood Venous blood specimen / Unknown Venipuncture / Unknown 04/06/2024 12:10 PM EST 04/06/2024 12:10 PM EST Castro Cardoso MD LAB BLOOD ORDERABLES [facility] [address] [place] [address], documented in this encounter Visit Diagnoses Diagnosis Congestive heart failure, unspecified HF chronicity, unspecified heart failure type (CMS/HCC)- Primary Longstanding persistent atrial fibrillation (CMS/HCC) Hypercholesterolemia Pure hypercholesterolemia Carpal tunnel syndrome on left Carpal tunnel syndrome Encounter for adjustment or management of cardiac device documented in this encounter Historical Medications * This list may reflect changes made after this encounter. Medication Sig Dispensed Refills Start Date End Date lidocaine (LIDODERM) 5 % patch Apply 1 patch topically 1 (one) time each day. Remove & discard patch within 12 hours or as directed by . added in this encounter Care Teams Mat Weaver Relationship Specialty Start Date End Date Castro Cardoso MD [address] [place] [id number] PCP - General Internal Medicine 03/08/13 documented as of this encounter
== END 2024-04-25 13:32 | disposition home or self-care (01) ==
LOC: HO.US 13:31
PROVIDERS: PCP Internal Medicine; Visit Provider Surgery Vascular Surgery
DX: I73.9 Peripheral vascular disease, unspecified (principal)
CPT/HCPCS: 93922; 93925

== ENCOUNTER → 2024-04-25 13:33 | Outpatient (BNV) | payer MEDICARE, SELFPAY | PROVIDERS: PCP Internal Medicine; Visit Provider Radiology Diagnostic Radiology | DX: I73.9 Peripheral vascular disease, unspecified (principal) | CPT/HCPCS: 93922; 93925 ==

== ENCOUNTER → 2024-05-08 13:39 | Outpatient (BNVA) | payer MEDICARE, SELFPAY | PROVIDERS: PCP Internal Medicine; Visit Provider Surgery Vascular Surgery | DX: I83.11 Varicose veins of right lower extremity with inflammation (principal); I73.9 Peripheral vascular disease, unspecified | CPT/HCPCS: 99212 ==

== ENCOUNTER 2024-06-28 10:25 | Outpatient (REF) | payer MEDICARE, SELFPAY ==
--- NOTE | ~2024-06-28 | US_ITS ---
EXAMINATION: US LOWER EXTREMITY VENOUS (REFLUX EXAM), BILATERAL CLINICAL INFORMATION: Varices COMPARISON: None. TECHNIQUE: Color flow triplex imaging and compression Doppler was performed to evaluate both the deep and the superficial systems bilaterally. To evaluate the superficial system, the examination was performed in the upright position. Color-flow Doppler ultrasound and compression ultrasound were utilized. In addition, maneuvers were utilized to demonstrate reflux. FINDINGS: 1. DEEP VENOUS ULTRASOUND OF THE RIGHT LOWER EXTREMITY: Common Femoral Vein: Compressible, normal respiratory variation and augmented flow. Femoral Vein: Compressible, normal color flow and augmentation. Popliteal Vein: Compressible, normal augmentation. Deep Reflux: There is no evidence of reflux in the deep system in either the common femoral vein, superficial femoral or the popliteal vein. There is no evidence of a Velez's cyst. 2. SUPERFICIAL ULTRASOUND WITH DOPPLER OF RIGHT LOWER EXTREMITY: GREAT SAPHENOUS VEIN: Saphenofemoral Junction: 0.6 cm; Reflux: 0 ms Proximal Thigh: 0.3 cm; Reflux: 0 ms Mid Thigh: 0.1 cm; Reflux: 0 ms Distal Thigh: 0.5 cm; Reflux: More than 2948 ms At Knee: 0.3 cm; Reflux: 728 ms Proximal Calf: 0.3 cm; Reflux: 2960 ms Mid Calf: 0.2 cm; Reflux: 1008 ms Distal Calf: 0.2 cm; Reflux: 0 ms DUPLICATED MEDIAL GREAT SAPHENOUS VEIN: Diameter: None imaged Reflux: NA DUPLICATED LATERAL GREAT SAPHENOUS VEIN: Diameter: 0.3 cm. Reflux: NA SMALL SAPHENOUS VEIN: Saphenopopliteal Junction: 0.1 cm; Reflux: 0 ms Proximal: 0.2 cm; Reflux: 1308 ms Distal: 0.2 cm; Reflux: 840 ms VEIN OF GIACOMINI: Size: 0.1 cm. Reflux: NA PERFORATORS: Location: Mid calf and distal thigh. Size: 0.2-0.4 cm. Reflux: NA VARICOSITIES: Location: Distal thigh proximal calf. Size: 0.3 cm. Reflux: 2204-6066 ms. 3. DEEP VENOUS ULTRASOUND OF THE LEFT LOWER EXTREMITY: Common Femoral Vein: Compressible, normal respiratory variation and augmented flow. Femoral Vein: Compressible, normal color flow and augmentation. Popliteal Vein: Compressible, normal augmentation. Deep Reflux: There is no evidence of reflux in the deep system in either the common femoral vein, superficial femoral or the popliteal vein. There is no evidence of a Velez's cyst. 4. SUPERFICIAL ULTRASOUND WITH DOPPLER OF LEFT LOWER EXTREMITY: GREAT SAPHENOUS VEIN: Saphenofemoral Junction: 1.0 cm; Reflux: 0 ms Proximal Thigh: 0.5 cm; Reflux: 0 ms Mid Thigh: Not seen. Distal Thigh: Not seen. At Knee: Not seen. Proximal Calf: Not seen. Mid Calf: Not seen. Distal Calf: Not seen. DUPLICATED MEDIAL GREAT SAPHENOUS VEIN: Diameter: 0.2-0.4 cm. Reflux: NA DUPLICATED LATERAL GREAT SAPHENOUS VEIN: Diameter: None imaged. Reflux: NA SMALL SAPHENOUS VEIN: Saphenopopliteal Junction: Not seen. Proximal: Not seen. Distal: 0.1 cm; Reflux: 0 ms VEIN OF GIACOMINI: Size: NA Reflux: NA PERFORATORS: Location: At the knee and midcalf. Size: 0.2-0.3 cm. Reflux: NA VARICOSITIES: Location: Proximal thigh and midcalf. Size: 0.3 cm. Reflux: 1524 ms in the proximal thigh. US/US venous insuf bilat IMPRESSION: Right: Venous insufficiency, great saphenous vein from above the knee to the mid calf. Venous insufficiency, small saphenous vein mid to distal calf. Varices with reflux in the distal thigh and proximal calf. Left: No venous insufficiency. Varices in the proximal thigh with reflux. Electronically signed by: Samuel Lara MD 06/28/2024 12:22 PM EDT
== END 2024-06-28 10:26 | disposition home or self-care (01) ==
LOC: HO.US 10:25
PROVIDERS: PCP Internal Medicine; Visit Provider Surgery Vascular Surgery
DX: I83.11 Varicose veins of right lower extremity with inflammation (principal)
CPT/HCPCS: 93970

== ENCOUNTER → 2024-06-28 10:28 | Outpatient (BNV) | payer MEDICARE, SELFPAY | PROVIDERS: PCP Internal Medicine; Visit Provider Radiology Diagnostic Radiology | DX: I83.893 Varicose veins of bilateral lower extremities with other complications (principal) | CPT/HCPCS: 93970 ==

== ENCOUNTER 2024-07-03 14:13 | Outpatient (AMB) | payer MEDICARE, SELFPAY ==
[2024-07-03 14:25] VITALS: BMI 30.7
--- NOTE | 2024-07-03 14:25 | A.OFFVIS_ITS ---
Vital Signs 07/03/24 14:25 Height 5 ft 6 in Weight 190 lb BMI 30.7 Intake Visit Reasons: follow up s/p US 06/28/24 Intake Note: followup US 06/28/24 for LE swelling, Right worse than Left LE Accompanied by: Self / Same As Patient Allergies Ccpdzsm-KNG-PcH Reductase Inhibitor [XPCABPV-DKP-VYA REDUCTASE INHIBITOR] Adverse Reaction (Severe, Verified 07/03/24 14:28) BODY ACHES amoxicillin Adverse Reaction (Mild, Verified 07/03/24 14:28) Diarrhea HPI HPI follow up s/p US 06/28/24: Details: The patient is an 89-year-old female presenting with chronic venous insufficiency. She reports that the condition is chronic, and compression has provided minimal relief. Specific to her current condition, she indicates experiencing mild swelling and palpable bumps on the right leg. Other relevant historical notes include toenail removal on the left foot by Dr. Dread Pfeiffer, with no significant complications reported. She now presents for follow-up with venous insufficiency testing. [facility] Medical History Claudication Plantar fasciitis Hypercholesteremia HTN (hypertension) Surgical History Stenosis of left femoral artery History of cardiac defibrillator placement Total knee replacement status Hx of CABG Social History Household Members: Spouse Housing: House Alcohol intake: current Alcohol intake frequency: holidays/special occasions only Patient Tobacco Use Status: Never used Tobacco Review of Systems Const Reports as per HPI ENT Reports no additional complaints Card Denies chest pain, Denies chest pain at rest and Denies chest pain with activity Resp Denies chest congestion and Denies cough GI Reports no additional complaints Musc Details: pain over varicosities, aching of lower extremities, swelling, cramping, heav iness and tiredness, itching Denies abnormal gait Skin/Breast Reports pruritus and Denies wounds Neuro Reports no additional complaints and Denies abnormal gait Psych Denies no additional complaints Physical Exam Vital Signs: BMI result Body Mass Index 30.7 Const General: cooperative, healthy appearing and comfortable Orientation/consciousness: oriented to person, oriented to place and oriented to time Neck Carotids: no bruits Chest Chest palpation & inspection: normal inspection of the chest and normal palpa tion of entire chest wall Resp Effort & Inspection: normal respiratory effort and able to speak in complete sentences Cardio Rate: regular rate Heart sounds: S1 normal heart sound present and S2 normal heart sound present Peripheral pulses: Peripheral pulses 2+ throughout GI Inspection: Yes normal to inspection Skin Other: +2 edema, large rope-like varicosities greater than 4 mm right calf CEAP Classification C4 - skin color changes Ep - Etiology Primary As - superficial veins P - reflux General skin exam: dry skin Neuro General: oriented to person, oriented to place and oriented to time Extrem Right lower extremity: full ROM, normal capillary refill and edema Left lower extremity: full ROM, normal capillary refill and edema Psych Mental Status: mental status grossly normal Results Reviewed Results Reviewed: Brief summary of venous insufficiency testing is as follows: right great saphenous vein: Positive right below-knee right small saphenous vein: negative right accessory vein: none present left great saphenous vein: Ablated left small saphenous vein: negative left accessory vein: none present Please note there is no evidence of any venous aneurysms or significant tortuosity Assessment & Plan Assessment & Plan (1) Varicose veins of right lower extremity with inflammation: Code(s): I83.11 - Varicose veins of right lower extremity with inflammation Category: Medical Plan: This patient has varicose veins with inflammation. They continue to be a source of discomfort for the patient. The patient has tried conservative treatment with compression, leg elevation and exercise program for over 3 months time. They have been compliant with all treatment. This has provided minimal relief for the patient. I do not anticipate this course of treatment will alter the underlying etiology. The patient has been scheduled for lower extremity venous treatment inclusive of --- right great saphenous vein Cyanoacralate ablation. Risks, benefits, and complications of this procedure has been discussed in detail with the patient including but not limited to bleeding, infection, and the development of a DVT. The patient has demonstrated a clear understanding and has consented. We will schedule the patient as soon as possible. Thank you for allowing us to participate in this patient's care. If there are any questions or concerns please do not hesitate to contact us. (2) PAD (peripheral artery disease): Comment: 01/02/2015 - left SFA stent and left popliteal plasty with DCB 07/22/2021 - atherectomy and stent of right SFA Code(s): I73.9 - Peripheral vascular disease, unspecified Category: Medical Plan: Stable Coding Level of Care Code Est Pt Level 4 (11510) Complex EM visit Add On G2211 Diagnoses Varicose veins of right lower extremity with inflammation I83.11 PAD (peripheral artery disease) I73.9
--- OUTSIDE RECORDS SUMMARY | 2024-07-03 17:00 | XMS_ITS ---
Author Organization [facility] Address [address] [facility] [place] [address] Care Team Providers Care Wood Type Cutter Name Role Phone Castro Cardoso MD Primary Care Provider Kenneth Barber Unavailable [phone] Allergies Allergen (clinical drug ingredient) Drug/Non Drug Allergy documented on EMR Reaction Allergy Type Onset Date Status amoxicillin Amoxicillin sever diarrhea Drug Allergy Active REASON FOR VISIT Last Visit PCP 07/2023, Ulcer(s) Medications Medication SIG (Take, Route, Frequency, Duration) Notes Start Date End Date Status levoFLOXacin Not-Jose Roberto ing Enoxaparin Sodium No t-Taking oxyCODONE-Acetaminophen Not-Taking Valsartan Not-Taking Captopril Not-Taking Digoxin 125 MCG TAKE 1 TAB BY MOUTH DAILY Oral for 90 Not-Taking Lisinopril 20 MG 1 tablet Orally Once a day for 30 day(s) Not-Taking Cephalexin Not-Takin g Zetia Active Night Splint AFO - L1930 as directed 05/30/2015 Active Isosorbide Mononitrate ER Active Klor-Con M20 Active Spironolactone-HCTZ 25-25 MG 1 tablet Orally Once a day Active Warfarin Sodium Acti ve Latanoprost Active Clopidogrel Bisulfate Active Doxycycline Hyclate Active Furosemide Active Entresto 49-51 MG 1 tablet Orally Twic e a day Active Carvedilol Active Rosuvastatin Calcium Active Aspir-81 Active Calcium 600-200 MG-UNIT 1 tablet with fo od Orally Twice a day for 30 day(s) Active Social History Tobacco Use: Social History Observation Description Date Details (start date - stop date) Former Smoker NA - NA Tobacco Use/Smoking Question Answer Notes Are you a: former smoker Additional Findings: Tobacco Non-User Current no n-smoker Alcohol Screen Question Answer Notes Did you have a drink containing alcohol in the p ast year? No Points 0 Interpretation Negative Tobacco use other than smoking: Question Answer Notes Are you an other tobacco user? 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 ; Pain in left toe(s) M79.675 ; Primary osteoarthritis, left ankle and foot M19.072 ; Unspecified atherosclerosis of [place] arteries of extremities, bilateral legs I70.203 and Other hammer toe(s) (acquired), left foot M20.42 Assessments Encounter Date Diagnosis (ICD Code) Assessment Notes Treatment Notes Treatment Clinical Notes Section Notes 10/25/2023 Non-pressure chronic ulcer of other part of left foot limited to breakdown of skin (ICD-10 - L97.521) 10/25/2023 Pain in left toe(s) (ICD-10 - M79.675) 10/25/2023 Primary osteoarthritis, left ankle and foot (ICD-10 - M19.072) 10/25/2023 Unspecified atherosclerosis of [place] arteries of extremities, bilateral legs (ICD-10 - I70.203) 10/25/2023 Other hammer toe(s) (acquired), left foot (ICD-10 - M20.42) Plan Of Treatment Next Appt Details Follow Up: 4 Weeks, Reason: Procedure Notes * Category Sub-Category Detail Notes Debride skin< 25 sq cm Open wound Open woun d selective debridement of fibrin, devitilized epidermis and/or dermis, exudate, using sterile sharp dissection, without use of anesthesia, with/without topical applications, wound assessment and instructions for ongoing care, Wound Care, The patient was instructed on importance of proper wound care consisting of pressure reduction, maintainance of moist wound environment, and regular debridement of devitilized tissue , The patient is to cleanse the wound with warm soapy water/peroxide/saline or betadine BID based on product availability , The patient is to apply Antibiotic Oint. to the wound and cover with a DSD , The patient was instructed to change dressings according to orders or PRN saturation, leaks, The patient was instructed to monitor and report any signs or symptoms of infection or any untoward reactions (51609) Progress Notes * Madie HERNANDEZ JDOB:1935 (88 yo F)Acc No.[id number]:10/25/2023 Progress Notes Patient:?Madie Hernandez Provider:?Kenneth Verde DPM :1935???Age:88 Y???Sex:Female D ate:10/25/2023 Address:[address] [place], [place] [id number] Pcp:Castro Cardoso MD Subjective: * Chief Complaints: * ???Last Visit PCP 07/2023Gisselle r(s) * HPI: ???Toe pain:?Nature:?aching, sharp.?Location:?3rd toe, Left foot.?Duration:?a month.?Onset/Cause:?gradual.?Aggravated by:?standing/walking, any pressure.?Treatments:?bracing/splinting/padding and debridement.?Severity/Quality:?moderate, severe.? * ROS:?General/Constitutional:?Nausea?denies.?Vomiting?denies.?Hunger Thirst?denies.?Loss appetite?denies.?Chills?denies.?Fatigue?denies.?Fever?denies.?Night Sweats?denies.?Unexplained weight loss?denies.?Unexplained weight gain?denies.?HEENTM:?Dentures?denies.?Dizziness?denies.?Glasses/contacts?denies.?Retinopathy?de nies.?Blurred/double vision?denies.?TMJ?denies.?Discharge/drainage?denies.?Implants?denies.?Sore throat?denies.?Dental implants?denies.?Hard of hearing ?denies.?Difficulty chewing/swallowing/speaking?denies.?Nose bleeds?denies.?Sore mouth?denies.?Respiratory:?On Oxygen?denies.?Pneumonia/pleurisy?denies.?Bronchitis?denies.?Emphysema?denies.?C oughing?denies.?Cough blood?denies.?Shortness of breath?denies.?Wheezing?denies.?Cardiovascular:?Pacemaker?admits.?MVP?denies.?WPW?denies.?CHF?denies.?Heart attack?denies.?Septal defect?denies.?Rapid beat?denies.?Chest pain ?denies.?Atrial Fib.?admits.?Murmur/Palpitations?denies.?Gastrointestinal:?Hemorrhoids?denies.?Stomach/Abdominal pain?denies.?Dark blood stool?denies.?Irritable bowel ?denies.?Constipation?denies.?Diarrhea?denies.?Hematology:?Swelling?admits.?Clots?denies.?Varicose Veins?denies.?Bruising?denies.?Bleeding problem?denies.?Genitourinary:?Blood urine?denies.?Frequent/Painfu/urination/bladder control?denies.?Kidney stones?denies.?Infection (UTI)?denies.?Nephropathy?denies.?sex trans dis (STD)?denies.?Prostate?denies.?Musculoskeletal:?Hammertoes?admits.?Bunions?denies.?Back Pain?denies.?Muscle Cramps/ Resting?denies.?Muscle cramps / walking?denies.?Generalized aches and pains?denies.?Weakness?denies.?Integ.:?Ly?denies.?Scars?denies.?Corns/calluses?admits.?Ingrown nails?denies.?Painful nails?denies.?Open Sores?denies.?Rashes?denies.?Neurologic:?Difficulty sleeping?denies.?Brain disorder?denies.?Numbness?admits.?Balance trouble?admits.?Confusion?denies.?Fainting/blackouts?denies.?Tingling?denies.?Tr emors?denies.? * Medical History:? * Surgical History:?quad by [facility] 5 stents belly button hernia breast surgery 2nd toe left foot surgery hysterectomy left knee replacement tent eplaced pacemaker 09/2022face surgery 04/13/23 * Hospitalization/Major Diagno stic Procedure:?[facility] - Foot Cellulitis- Picc line inserted 03/04/15[facility] - Stent left leg due to DVT 01/10/15[facility] - Quadruple Bypass 10/07/14 * Family History:?Mother: dece ased, diagnosed with Family history of arthritis, Other malignant neoplasm of unspecified site.?Father: , heart attack, diagnosed with Unspecified heart disease.?Daughter(s): alive, diagnosed with Unspecified essential hypertension.?Son(s): alive, diagnosed with Unspecified essential hypertension.?Spouse: alive, diagnosed with Family history of arthritis, Diabetic - NIDDM, Unspecified essential hypertension.? * Social History:?Tobacco Use:?Tobacco Use/Smoking?Are you a:?former smoker ?Additional Findings: Tobacco Non-User?Current non-smoker ?Tobacco use other than smoking?Are you an other tobacco user??No ???Drugs/Alcohol:?Drugs?Have you used drugs other than those for medical reasons in the past 12 months??No ?Alcohol Screen?Did you have a drink containing alcohol in the past year??No ?Points?0 ?Interpretation?Negative ???Miscellaneous:?Caffeine: yes, frequency:, 1-2 cups per day. ?Children: yes, two. ?Exercise: yes, walking. ?Marital status: . ?Occupation: retired. * Medications:?TakingRosuvasta tin Calcium Aspir-81 Calcium 600-200 MG-UNIT Tablet 1 tablet with food Orally Twice a dayCarvedilol Clopidogrel Bisulfate Doxycycline Hyclate Furosemide Entresto 49-51 MG Tablet 1 tablet Orally Twice a dayIsosorbide Mononitrate ER Klor-Con M20 Latanoprost Spironolactone-HCTZ 25-25 MG Tablet 1 tablet Orally Once a dayWarfarin Sodium Zetia Night Splint AFO - L1930 as directed Taking Rosuvastatin Calcium Taking Aspir-81 Taking Calcium 600-200 MG-UNIT Tablet 1 tablet with food Orally Twice a dayTaking Carvedilol Taking Clopidogrel Bisulfate Taking Doxycycline Hyclate Taking Furosemide Taking Entresto 49-51 MG Tablet 1 tablet Orally Twice a dayTaking Isosorbide Mononitrate ER Taking Klor-Con M20 Taking Latanoprost Taking Spironolactone-HCTZ 25-25 MG Tablet 1 tablet Orally Once a dayTaking Warfarin Sodium Taking Zetia Taking Night Splint AFO - L1930 as directed Not- Taking/PRNDigoxin 125 MCG Tablet TAKE 1 TAB BY MOUTH DAILY Oral Lisinopril 20 MG Tablet 1 tablet Orally Once a dayCephalexin Captopril levoFLOXacin Enoxaparin Sodium oxyCODONE- Acetaminophen Valsartan Medication List reviewed and reconciled with the patientNot-Taking/PRN Digoxin 125 MCG Tablet TAKE 1 TAB BY MOUTH DAILY Oral Not-Taking/PRN Lisinopril 20 MG Tablet 1 tablet Orally Once a dayNot-Taking/PRN Cephalexin Not-Taking/PRN Captopril Not-Taking/PRN levoFLOXacin Not-Taking/PRN Enoxaparin Sodium Not-Taking/PRN oxyCODONE-Acetaminophen Not-Taking/PRN Valsartan Medication List reviewed and reconciled with the patient * Allergies:?Amoxicillin: ruth mcqueen[Allergies Verified] Objective: * Vitals:?Ht: 5 ft 7 in, Wt: 2 00, BMI: 31.32, Shoe size: 9.5, Wt-k.72 kg. * Examination: ???Dermatologic: ?SKIN FINDINGS:? Skin exam reveals Keratotic lesion(s) located at, Plantar, TA, T2.?ULCER:? LOCATION--plantar left?3rd toe; ?SIZE, 3mm X 1mm X 1mm, BASE, fibrogranular, RIM, hyperkeratotic, UNDERMINING, absent, TRACKING, Full thickness breakdown of skin,NECROTIC TISSUE, loosely-adherent,yellow slough DRAINAGE, bloody, mild, MALODOR, absent, CALOR, absent, ERYTHEMA, absent, PAIN ON PALPATION, present.?General Examination: ?GENERAL APPEARANCE:?pleasant, alert, well nourished, well developed, well hydrated, with good attention to hygene/body habitus, and in no acute distress.?ORIENTED:?person,place, and time.?Vascular: ?DP PULSES:? 0/4, RIGHT, 1/4, LEFT.?PT PULSES:? 0/4, B/L.?HAIR GROWTH/TEXTURE/ELASTICITY/TURGOR:? decreased, B/L.?PIGMENTATION:? brawny, Right.?EDEMA:? 2/4, Right.?Orthopedic: ?MUSCLE STRENGTH:?5/5 all groups in a symmetrical fashion , B/L.?DIGITAL DEFORMITIES:? Digital contracture--t2-t4.?Nails: ?NAILS are:? Elongated, overgrown, dystrophic, lytic, greater than 3mm thick, discolored and friable with crumbly malodorous subungual debris, with pain on palpation, 1-5 Left foot, T5.? Assessment: * Assessment: 1.?Pain in left toe(s) - M79 .675?2.?Non-pressure chronic ulcer of other part of left foot limited to breakdown of skin - L97.521 (Primary)?3.?Primary osteoarthritis, left ankle and foot - M19.072?4.?Unspecified atherosclerosis of [place] arteries of extremities, bilateral legs - I70.203?5.?Other hammer toe(s) (acquired), left foot - M20.42? Plan: * Treatment: * Procedures:?Debride skin< 25 sq cm:?Open wound?Open wound selective debridement of fibrin, devitilized epidermis and/or dermis, exudate, using sterile sharp dissection, without use of anesthesia, with/without topical applications, wound assessment and instructions for ongoing care, Wound Care, The patient was instructed on importance of proper wound care consisting of pressure reduction, maintainance of moist wound environment, and regular debridement of devitilized tissue , The patient is to cleanse the wound with warm soapy water/peroxide/saline or betadine BID based on product availability , The patient is to apply Antibiotic Oint. to the wound and cover with a DSD , The patient was instructed to change dressings according to orders or PRN saturation, leaks, The patient was instructed to monitor and report any signs or symptoms of infection or any untoward reactions (86466).? * Procedure Codes:?69523 ACTIV E WOUND CARE/20 CM OR < * Preventive Medicine:? ??Counseling:?Discussion:?-14: Office or other outpatient visit for the evaluation and management of an established patient, which required a medically appropriate history and/or examination and MODERATE level of DECISION MAKING for: 1 OR MORE CHRONIC PROBLEM(S) THATS WORSENING, 2 STABLE CHRONIC PROBLEMS, A NEWLY DIAGNOSED PROBLEM WITH UNCERTAIN PROGNOSIS, AN ACUTE COMPLICATED INJURY WITH MULTIPLE TREATMENT OPTIONS, OR AN ACUTE PROBLEM WITH ACCOMPANYING SYSTEMIC SYMPTOMS, THAT POSE(S) A MODERATE RISK OF MORBIDITY. THIS CONDITION MAY ALSO INCLUDE RX DRUG MANAGEMENT, OR A DECISON FOR MINOR SURGERY. The visit on the day of the encounter encompassed interpreting the data and educating the patient as to the nature of their condition, treatment options available according to their individual PMH, meds, allergies, and overall health/living conditions, as well as any potential risks or complications that may occur from a failure to adhere to, and participate in, the recommended course of therapy. The discussion included a complete verbal, and/or written explanation of the examination results, any x-rays taken, the proposed diagnosis, and outline of the treatment plan. A schedule for future care needs was also explained. The patient verbalized an understanding of the instructions at this time and agreed to be an active participant in their treatment. If the patient should think of any questions or concerns after the visit, I have encouraged the patient to call the office.?Digital Treatment:?HT- I explained to the patient the possible etiologies of Hammertoes, including genetics/foot type/shoegear/activity level/exercise routine and the risks/benefits of all the different treatment options for their pain including: No treatment at all, Rest, Ice, New/supportive/wider/deeper Shoegear, Digital Padding/Strapping/Taping/Bracing/Gel protective sleeves, Foot/Ankle AFO Bracing, Stretching exercises, Deep Tissue Massage, Arch support/shoe inserts with splay metatarsal padding, and Custom orthoses. I insisted that any digital devices be removed daily and not worn overnight for safety. The patient is to carefully examine the toes daily for any skin irritation while using any splinting or padding device. The advantages and disadvantages of each option were discussed and the patients questions re: shoegear, padding, custom vs prefabricated inserts, activity level, and consistency in home treatment regimens for optimal success were answered to their verbally confirmed satisfaction; pt may need sx tx t2 painful hts.? * Follow Up:?4 Weeks * Images: * Sign off status: Completed true * Provider:?Kenneth Verde DPM Date:? 024 Generated for Duane hui/Ivette/Eliud on:?07/03/2024 04:59 PM EDT History and Physical Notes * HPI (History of Present Illness) Category Sub-Category Detail Notes Category Not es Toe pain Nature: aching, sharp Location: 3rd toe, Left foot Duration: a month Onset/Cause: gradual Aggravated by: standing/walking, an y pressure Treatments: bracing/splinting/pa dding and debridement Severity/Quality: moderate, severe Examination Category Sub-Category Detail Notes Category Not es Dermatologic SKIN FINDINGS: Skin exam reveal s Keratotic lesion(s) located at, Plantar, TA, T2 ULCER: LOCATION--plantar le ft 3rd toe; SIZE, 3mm X 1mm X 1mm, BASE, fibrogranular, RIM, hyperkeratotic, UNDERMINING, absent, TRACKING, Full thickness breakdown of skin,NECROTIC TISSUE, loosely- adherent,yellow slough DRAINAGE, bloody, mild, MALODOR, absent, CALOR, absent, ERYTHEMA, absent, PAIN ON PALPATION, present Orthopedic DIGITAL DEFORMITIES: Digital contracture- -t2-t4 MUSCLE STRENGTH: 5/5 all groups in a symmetrical fashion , B/L General Examination GENERAL APPEARANCE: pleasant , alert, well nourished, well developed, well hydrated, with good attention to hygene/body habitus, and in no acute distress ORIENTED: person,place, and ti me Vascular DP PULSES (B): 0/4, RIGHT, 1/4, LEFT PT PULSES (B): 0/4, B/L TROPHIC CONDITION-TEXTURE/ELASTICITY/TUR GOR/HAIR GROWTH (B): decreased, B/L EDEMA (C): 2/4, Right PIGMENTATION: brawny, Right Nails NAILS are: Elongated, overg rown, dystrophic, lytic, greater than 3mm thick, discolored and friable with crumbly malodorous subungual debris, with pain on palpation, 1-5 Left foot, T5
--- OUTSIDE RECORDS SUMMARY | 2024-07-03 17:00 | XMS_ITS ---
Author Organization [facility] Address [address] [facility] [place] [address] Care Team Providers Care Mechanical Operator Name Role Phone Castro Cardoso MD Primary Care Provider Kenneth Barber Unavailable [phone] Allergies Allergen (clinical drug ingredient) Drug/Non Drug Allergy documented on EMR Reaction Allergy Type Onset Date Status amoxicillin Amoxicillin sever diarrhea Drug Allergy Active REASON FOR VISIT Last Visit PCP 07/2023, Ulcer(s) Medications Medication SIG (Take, Route, Frequency, Duration) Notes Start Date End Date Status Warfarin Sodium Not- Taking Klor-Con M20 Active Isosorbide Mononitrate ER Active Spironolactone-HCTZ 25-25 MG 1 tablet Orally Once a day Active Latanoprost Active Carvedilol Active Doxycycline Hyclate Active Clopidogrel Bisulfate Active Entresto 49-51 MG 1 tablet Orally Twic e a day Active Furosemide Active Aspir-81 Active Valsartan Not-Taking Calcium 600-200 MG-UNIT 1 tablet with fo od Orally Twice a day for 30 day(s) Active Rosuvastatin Calcium Active Eliquis Active Captopril Not-Taking Cephalexin Not-Takin g Enoxaparin Sodium No t-Taking levoFLOXacin Not-Jose Roberto ing oxyCODONE-Acetaminophen Not-Taking Night Splint AFO - L1930 as directed 05/30/2015 Active Zetia Active Lisinopril 20 MG 1 tablet Orally Once a day for 30 day(s) Not-Taking Digoxin 125 MCG TAKE 1 TAB BY MOUTH DAILY Oral for 90 Not-Taking Social History Tobacco Use: Social History Observation [...] Signs Height 5 ft 7 in in 11/22/2023 Weight 200 lbs 11/22/2023 BMI 31.32 kg/m2 11/22/2023 Encounters Encounter Location Date Provider Diagnosis [facility] [place] [address] [address] 11/22/2023 Kenneth Verde 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 ; Pain in left toe(s) M79.675 ; Primary osteoarthritis, left ankle and foot M19.072 ; Unspecified atherosclerosis of [place] arteries of extremities, bilateral legs I70.203 and Other hammer toe(s) (acquired), left foot M20.42 Assessments Encounter Date Diagnosis (ICD Code) Assessment Notes Treatment Notes Treatment Clinical Notes Section Notes 11/22/2023 Non-pressure chronic ulcer of other part of left foot limited to breakdown of skin (ICD-10 - L97.521) 11/22/2023 Pain in left toe(s) (ICD-10 - M79.675) 11/22/2023 Primary osteoarthritis, left ankle and foot (ICD-10 - M19.072) 11/22/2023 Unspecified atherosclerosis of [place] arteries of extremities, bilateral legs (ICD-10 - I70.203) 11/22/2023 Other hammer toe(s) (acquired), left foot (ICD-10 - M20.42) Plan Of Treatment Next Appt Details Follow Up: prn, Reason: Progress Notes * Madie HERNANDEZDOB:1935 (88 yo F)Acc No.[id number]:11/22/2023 Progress Notes Patient:?Eliseomee Madie Kathy Provider:?Kenneth Verde DPM :1935???Age:88 Y???Sex:Female D ate:11/22/2023 Address:[address] , [id number] Pcp:Castro Cardoso MD Subjective: * Chief Complaints: * ???Last Visit PCP 07/2023Jacobce r(s) * HPI: ???Toe pain:?Nature:?aching, sharp.?Location:?3rd toe, Left foot.?Onset/Cause:?gradual.?Course:?improved.?Aggravated by:?standing/walking, any pressure.?Treatments:?bracing/splinting/padding and debridement.?Severity/Quality:?mild.? * ROS:?General/Constitutional:?Nausea?denies.?Vomiting?denies.?Hunger Thirst?denies.?Loss appetite?denies.?Chills?denies.?Fatigue?denies.?Fever?denies.?Night Sweats?denies.?Unexplained weight loss?denies.?Unexplained [...] foot surgery hysterectomy left knee replacement tent 4/2022Replaced pacemaker 09/2022face surgery 04/13/23 * Hospitalization/Major Diagno [...] with Unspecified essential hypertension.?Spouse: alive, diagnosed with Diabetic - NIDDM, Family history of arthritis, Unspecified essential hypertension.? * Social History:?Tobacco Use:?Tobacco [...] walking. ?Marital status: . ?Occupation: retired. * Medications:?TakingEliquis Rosuvastatin Calcium Aspir-81 Calcium 600-200 MG- UNIT Tablet 1 tablet with food Orally Twice a dayCarvedilol Clopidogrel Bisulfate Doxycycline Hyclate Furosemide Entresto 49-51 MG Tablet 1 tablet Orally Twice a dayIsosorbide Mononitrate ER Klor-Con M20 Latanoprost Spironolactone-HCTZ 25-25 MG Tablet 1 tablet Orally Once a dayZetia Night Splint AFO - L1930 as directed Taking Eliquis Taking Rosuvastatin Calcium Taking Aspir-81 Taking Calcium 600-200 MG- UNIT Tablet 1 tablet with food Orally Twice a dayTaking Carvedilol Taking Clopidogrel Bisulfate Taking Doxycycline Hyclate Taking Furosemide Taking Entresto 49-51 MG Tablet 1 tablet Orally Twice a dayTaking Isosorbide Mononitrate ER Taking Klor- Con M20 Taking Latanoprost Taking Spironolactone-HCTZ 25-25 MG Tablet 1 tablet Orally Once a dayTaking Zetia Taking Night Splint AFO - L1930 as directed Not-Taking/PRNWarfarin Sodium Digoxin 125 MCG Tablet TAKE 1 TAB BY MOUTH DAILY Oral Lisinopril 20 MG Tablet 1 tablet Orally Once a dayCephalexin Captopril levoFLOXacin Enoxaparin Sodium oxyCODONE-Acetaminophen Valsartan Medication List reviewed and reconciled with the patientNot-Taking/PRN Warfarin Sodium Not-Taking/PRN Digoxin 125 MCG Tablet TAKE 1 TAB BY MOUTH DAILY Oral Not-Taking/PRN Lisinopril 20 MG Tablet 1 tablet Orally Once a dayNot-Taking/PRN Cephalexin Not-Taking/PRN Captopril Not-Taking/PRN levoFLOXacin Not-Taking/PRN Enoxaparin Sodium Not-Taking/PRN oxyCODONE-Acetaminophen Not-Taking/PRN Valsartan Medication List reviewed and reconciled with the patient * Allergies:?Amoxicillin: ruth mcqueen[Allergies Verified] Objective: * Vitals:?Ht: 5 ft 7 in, Wt:20 0, BMI: 31.32, Shoe size:9.5, Wt-k.72 kg. * Examination: ???Dermatologic: ?SKIN FINDINGS:? Skin exam reveals Keratotic lesion(s) located at, Plantar, TA, T2.?ULCER:? LOCATION--plantar left?3rd toe; healed.?General Examination: ?GENERAL APPEARANCE:?pleasant, alert, well nourished, well [...] ankle and foot - M19.072?4.?Unspecified atherosclerosis of [place] arteries of extremities, bilateral legs - I70.203?5.?Other hammer toe(s) (acquired), left foot - M20.42? Plan: * Treatment: * Procedure Codes:? * Preventive Medicine:? ??Counseling:?Discussion:?-14: Office or other [...] sx tx t2 painful hts.? * Follow Up:?prn * Images: * Sign off status: Completed true * Provider:?Kenneth Verde DPM Date:? 024 Generated for Duane hui/Ivette/Eliud on:?07/03/2024 05:00 PM EDT History and Physical Notes * HPI (History of Present Illness) Category Sub-Category Detail Notes Category Not es Toe pain Nature: aching, sharp Location: 3rd toe, Left foot Onset/Cause: gradual Course: improved Aggravated by: standing/walking, an y pressure Treatments: bracing/splinting/pa dding and debridement Severity/Quality: mild Examination Category Sub-Category Detail Notes Category Not es Dermatologic SKIN FINDINGS: Skin exam reveal s Keratotic lesion(s) located at, Plantar, TA, T2 ULCER: LOCATION--plantar le ft 3rd toe; healed Orthopedic DIGITAL DEFORMITIES: Digital contracture- -t2-t4 MUSCLE [...]
--- OUTSIDE RECORDS SUMMARY | 2024-07-03 17:00 | XMS_ITS | Encounter Summary ---
Author Organization [facility] Address [address] [place] [address] Care Team Providers Care Marble Setter Name Role Phone Castro Cardoso MD Primary Care Provider [phone] Reason for Visit * Reason Onset Date Comments Medication 06/29/2024 Encounter Details Date Type Department Care Team ([facility] st Contact Info) Description 06/29/2024 Telephone [facility] [place] [address] [phone] Dread Verde, DPM [address] [id number] Medication Social History Tobacco Use Types Packs/Day Years Used Date Smoking Tobacco: Former Cigarettes 0.5 36 0 04/04/1952 - 04/04/1988 Smokeless Tobacco: Never Alcohol Use Standard Drinks/Week Comments Not Currently 0 (1 standard drink = 0.6 oz pur e alcohol) Comments No Sex and Gender Information Value Date Recorded Sex Assigned at Female 05/31/2024 11:41 AM EST Legal Sex Female 9:43 AM EST Gender Identity Female 05/31/2024 11:41 AM EST Sexual Orientation Straight 05/31/2024 11 :41 AM EST documented as of this encounter Ordered Prescriptions Prescription Sig Dispense Quantity Refills Last Filled Start Date End Date silver sulfADIAZINE (Silvadene) 1 % cream Apply topically 1 (one) time each day. 50 g 06/29/2024 cephalexin (KEFLEX) 500 mg capsule Take 1 capsule (500 mg total) by mouth 3 (three) times a day for 10 days. 30 each 06/29/2024 documented in this encounter Progress Notes * Maya Faith - 06/29/2024 8:00 AM EDT Pt came in today, states the medication should go to [facility] in [place] on [address]. He states it went to [facility] instead. Please advise. documented in this encounter Plan of Treatment Upcoming Encounters Date Type Department Care Team (Late st Contact Info) Description 07/04/2024 10:00 AM EDT Consult Internal Medicine [place] [address] [phone] Castro Cardoso MD [address] [address] 07/10/2024 8:00 AM EDT Consult Orthopedic Surgery - [place] [address] [phone] Dread Verde DPM [address] [address] 07/13/2024 9:00 AM EDT Hospital Encounter [facility] [place] [address] [place] [phone] Dread Verde DPM [address] [address] 07/13/2024 9:00 AM EDT - 07/13/2024 10:30 AM EDT Surgery [facility] [place] [address] [place] [phone] Dread Verde DPM [address] [address] REPAIR GREAT HAMMER TOE [[id number] (CPT??)] 07/24/2024 10:30 AM EDT Office Visit [facility] [place] [address] [place] [phone] Aide Nguyen PA [address] [place] [address] 07/26/2024 9:45 AM EDT Office Visit [facility] [place] [address] [place] [phone] Dread Verde, DPM [address] [place] [address] 07/31/2024 10:10 AM EDT Office Visit [facility] - [address] [place] [phone] Jennifer Segundo NP [address] [place] [address] [address] [place] [address] 10/23/2024 2:00 PM EDT Ancillary Procedure [facility] [address] [facility] [address] [place] [phone] Scheduled Procedures Name Priority Associated Diagnoses Date/Ti me REPAIR HAMMER TOE Hammer toe of left foot Ulcer of toe of left foot, with fat layer exposed ([facility]) 07/13/2024 9:00 AM EDT documented as of this encounter Visit Diagnoses Not on filedocumented in this encounter Care Teams Marble Setter Relationship Specialty Start Date End Date Castro Cardoso MD [address] [place] [address] PCP - General Internal Medicine 03/08/13 documented as of this encounter
--- OUTSIDE RECORDS SUMMARY | 2024-07-03 17:00 | XMS_ITS | Clinical Summary ---
Author Organization [facility] Address [address] [place] [address] Phone Care Team Providers Care Director Of Casework Name Role Phone Castro Cardoso MD Primary Care Provider [phone] Allergies Active Allergy Reactions Criticality Noted Date Comments Amoxicillin Diarrhea 07/20/2021 Synoskf-Bud-Cik Reductase Inhibitors 09/01/2022 Other reaction(s): Myalgia Medications apixaban (Eliquis) 5 mg tablet Take 1 tablet (5 mg total) by mouth 2 (two) times a day. 180 tablet 2 4 Active aspirin 81 mg EC tablet Take 2 tablets (162 mg total) by mouth at bedtime. Active calcium carbonate 1,500 mg (600 mg elemental calcium) tablet Take 1 tablet (1,500 mg total) by mouth 1 (one) time each day. Active ezetimibe (ZETIA) 10 mg tablet Take 1 tablet (10 mg total) by mouth 1 (one) time each day. 4 Active isosorbide mononitrate (IMDUR) 30 mg 24 hr tablet Take 1 tablet (30 mg total) by mouth 1 (one) time each day. 4 Active magnesium oxide (MAG-OX) 400 mg (241.3 elemental magnesium) tablet Take 400 mg by mouth daily. Active niacin (SLO-NIACIN) 500 mg CR tablet Take 2 tablets (1,000 mg total) by mouth 1 (one) time each day. Active sacubitriL-valsa rtan (Entresto) 49-51 mg per tablet Take 1 [...] (one) time each day. 90 tablet 1 5 Active rosuvastatin (CRESTOR) 10 mg tablet Take 1 tablet (10 mg total) by mouth 1 (one) time each day. 90 tablet 1 5 Active furosemide (LASIX) 20 mg tablet Take 1 tablet (20 mg total) by mouth 1 (one) time each day. 90 tablet 1 5 Active carvediloL (COREG) 6.25 mg tablet Take 2 tablets (12.5 mg total) by mouth 2 (two) times a day with meals. 180 tablet 1 5 Active cephalexin (KEFLEX) 500 mg capsule Take 1 capsule (500 mg total) by mouth 3 (three) times a day for 10 days. 30 each 5 07/09/19 25 Active cephalexin (KEFLEX) 500 mg capsule Take 1 capsule (500 mg total) by mouth 3 (three) times a day for 10 days. 30 each 5 07/10/19 25 Active silver sulfADIAZINE (Silvadene) 1 % cream Apply topically 1 (one) time each day. 50 g 5 06/30/19 26 Active furosemide (LASIX) 40 mg tablet Take 1 tablet (40 mg total) by mouth 1 (one) time each day. 4 06/07/19 25 Discontin ued(Reord er) carvediloL (COREG) 12.5 mg tablet TAKE 1 TABLET BY MOUTH TWICE DAILY WITH MEALS 180 tablet 3 5 06/07/19 25 Discontin ued(Reord er) Active Problems Problem Noted Date Diagnosed Date Hammer toe of left foot 04/16/2024 Ulcer of toe of left foot, with fat layer expose d 04/16/2024 Atrial fibrillation 02/15/2024 Assessment & Plan (06/01/2024 11:50 AM EST): Continue Eliquis for CVA prophylaxis. No recent recurrences. CAD (coronary artery disease) 02/15/2024 Assessment & Plan (06/01/2024 11:50 AM EST): Patient is not describing any ischemic symptoms. Interestingly she has never been cathed and spite of having an abnormal stress test. Ultimately, it may be because she is not a candidate for aggressive revascularization. Furthermore she is not describing any anginal symptoms. Continue aspirin, Zetia and low-dose rosuvastatin. Patient is intolerant to higher doses of statins. For now, continue current carvedilol 12.5 twice daily, Entresto 49 x 51 mg twice daily, spironolactone 12.5 mg daily. Would resume Farxiga 10 mg daily. Would probably hold Imdur-this does not have disease modifying properties. History of coronary artery bypass surgery 2023 HLD (hyperlipidemia) 02/15/2024 HTN (hypertension) 02/15/2024 Epidermal inclusion cyst 04/14/2023 HFrEF (heart failure with reduced ejection fract ion) 03/07/2023 Assessment & Plan (06/01/2024 11:50 AM EST): Would resume GDMT per outpatient schedule. Hold Imdur. SSS (sick sinus syndrome) 07/16/2021 Calculus of gallbladder with out cholecystitis without obstruction 05/12/2021 Diverticulitis large intesti ne w/o perforation or abscess w/o bleeding 01/20/2021 Ventral hernia without obstruction or gangrene 1 Pacemaker 05/02/2020 Overview (04/18/2024): Patient has a dual-chamber [employer] pacemaker in place model number #K173, serial [id number]. The RV lead is a [employer] model #1888TC-52, serial [id number]. The RA lead is a [employer] model number #1888TC-46, serial #[id number]. Chest pain 05/31/2018 Type 2 diabetes mellitus wit h complication, without long-term current use of insulin 05/31/2018 Seborrheic keratosis 02/22/2018 Resolved Problems Problem Noted Date Diagnosed Date Resolved Date Syncope 05/31/2024 06/01/2024 Assessment & Plan (06/01/2024 11:47 AM EST): Most likely vasovagal in nature. Pacemaker interrogation has ruled out arrhythmogenic causes nor was there any evidence of pacemaker malfunction. Given her neck pain, I suspect this might have been the trigger. It is not uncommon for the elderly to have a defective warning system as well. I would repeat orthostatic vitals given that they have not been documented. Consider carotid ultrasound-mainly to assess for subclavian steal but also excessive carotid hypersensitivity (also not uncommon in the elderly). Would assure that the patient can ambulate prior to discharge. However, if carotid ultrasound and orthostatics are unremarkable, no cardiovascular contraindications to discharge. Encounters Date Type Department Care Team Description 06/29/2024 Telephone Orthopedic Surgery - [place] [address] [facility] [address] [place] [phone] Dread Verde DPM Medication 06/28/2024 2:45 PM EDT Office Visit Orthopedic Surgery [facility] [address] [facility] [address] [place] [phone] Dread Verde, DPM Cellulitis of left foot (Primary Dx); Ulcer of toe of left foot, with fat layer exposed (CMS/HCC); Ingrowing nail; Hammer toe of left foot 06/12/2024 Telephone Internal Medicine - [place] 175 [facility] 200 [place] [phone] Castro Cardoso MD 06/06/2024 3:30 PM EST Ancillary Procedure [facility] [address] [facility] [address] [place] [phone] Encounter for adjustment or management of cardiac device 06/06/2024 2:40 PM EST Office Visit [facility] [address] [place] [phone] Jennifer Segundo NP HFrEF (heart failure with reduced ejection fraction) (CMS/HCC) (Primary Dx); Pacemaker; Coronary artery disease involving [place] coronary artery of [place] heart without angina pectoris; Primary hypertension; SSS (sick sinus syndrome) (CMS/HCC); Paroxysmal atrial fibrillation (CMS/HCC) 06/04/2024 Telephone [facility] [address] [place] [phone] Jennifer Segundo NP TOOTH EXTRACTION 05/31/2024 10:46 AM EST - 06/01/2024 5:15 PM EST Emergency [facility] Emergency [address] [place] [phone] Dionicio Zhou MD Flores, Carlos M, MD Bell, Alistair A, MD Syncope and collapse (Primary Dx); Syncope, unspecified syncope type Discharge Disposition: Home or Self Care 05/16/2024 1:45 PM EST Office Visit Orthopedic Surgery [facility] [address] [facility] [address] [place] [phone] Dread Verde DPCasi Hammer toe of left foot (Primary Dx); Left foot pain; Ulcer of toe of left foot, with fat layer exposed ([facility]/HCC); Diabetic mononeuropathy simplex (CMS/HCC); Type II diabetes mellitus with peripheral circulatory disorder ([facility]/HCC) 04/24/2024 2:30 PM EST Office Visit Orthopedic Surgery [facility] 175 [facility] [address] [place] [phone] Aide Nguyen PA Carpal tunnel syndrome on left 04/24/2024 12:25 PM EST Ancillary Procedure [facility] [address] [place] [phone] 04/18/2024 2:10 PM EST Office Visit [facility] [address] [place] [phone] Jennifer Segundo NP Coronary artery disease involving [place] coronary artery of [place] heart without angina pectoris (Primary Dx); HFrEF (heart failure with reduced ejection fraction) ([facility]/HCC); Atrial fibrillation, unspecified type (CMS/HCC); Primary hypertension; Pacemaker; SSS (sick sinus syndrome) (CMS/HCC); Mixed hyperlipidemia 04/16/2024 1:45 PM EST Office Visit Orthopedic Surgery - [place] [address] [facility] [address] [place] [phone] Dread Verde, DPM Hammer toe of left foot (Primary Dx); Follow-up exam; Ulcer of toe of left foot, with fat layer exposed (CMS/HCC) 04/06/2024 11:15 AM EST Office Visit Internal Medicine - [place] 175 [facility] 200 [place] [phone] Castro Cardoso MD Congestive heart failure, unspecified HF chronicity, unspecified heart failure type (CMS/HCC) (Primary Dx); Longstanding persistent atrial fibrillation (CMS/HCC); Hypercholesterolemia; Carpal tunnel syndrome on left from Last 3 Months Immunizations Name Administration [...] 10/2014 PROCEDURE: HISTORICAL CABG TOTAL KNEE ARTHROPLASTY 2017 Right PROCEDURE: HISTORICAL TOTAL KNEE REPLACE OTHER [...] disease); COMMENT: status post bypass surgery A-fib (CMS/HCC) DX:A-fib (HCC); COMMENT: on coumadin Sick sinus syndrome (CMS/HCC) DX :Sick sinus syndrome (HCC); COMMENT: with a dual chamber pacemaker in place. Peripheral vascular disease (CMS/HCC) DX:Peripheral vascular disease (HCC) PAF (paroxysmal atrial fibri llation) (CMS/HCC) DX:PAF (paroxysmal atrial fibrillation) (HCC) Plantar fasciitis DX:Plantar fas ciitis Claudication (CMS/HCC) DX:Claudi cation (HCC) Family History Medical History Relation Name Comments [...] Orientation Straight 05/31/2024 11 :41 AM EST Obstetrics History Para Term AB IAB SAB Ectopic Multiple Livin g Live Births 2 Last Filed Vital Signs Vital Sign Reading Time Taken Comments Blood Pressure 90/40 06/06/2024 2:40 PM EST Pulse 59 06/06/2024 2:40 PM EST Temperature 36.9 ??C (98.4 ??F) 06/01/2024 10:[address] Respiratory Rate 16 06/01/2024 10:18 AM EST Oxygen Saturation 95% 06/06/2024 2:40 PM EST Inhaled Oxygen Concentration - - Weight 90.3 kg (199 lb) 06/28/2024 2:33 PM EDT Height 165.1 cm (5' 5 ) 06/28/2024 2:33 PM EDT Body Mass Index 33.12 06/28/2024 2:33 PM EDT Plan of Treatment Upcoming Encounters Date Type Department Care Team (Late st Contact Info) Description 07/04/2024 10:00 AM EDT Consult Internal Medicine - [place] 175 [facility] 200 [place] [phone] Castro Cardoso MD [address] [address] 07/10/2024 8:00 AM EDT Consult Orthopedic Surgery [place] [address] [phone] Dread Verde, DPM [address] [address] 07/13/2024 9:00 AM EDT Hospital Encounter [facility] Main [place] [address] [place] [phone] Dread Verde DPM [address] [address] 07/13/2024 9:00 AM EDT - 07/13/2024 10:30 AM EDT Surgery [facility] Main OR [address] [place] [phone] Dread Verde, DPM [address] [address] REPAIR GREAT HAMMER TOE [[id number] (CPT??)] 07/24/2024 10:30 AM EDT Office Visit Orthopedic Surgery [facility] [address] [phone] Aide Nguyen PA [address] [phone] 07/26/2024 9:45 AM EDT Office Visit Orthopedic Surgery [facility] [address] [phone] Dread Verde, DPM [address] [facility] [address] [place] [address] 07/31/2024 10:10 AM EDT Office Visit [facility] [address] [place] [address] [place] [phone] Jennifer Segundo NP [address] [place] [address] [place] [address] [place] [address] 10/23/2024 2:00 PM EDT Ancillary Procedure [facility] [address] [facility] [address] [place] [address] Scheduled Procedures Name Priority Associated Diagnoses Date/Ti me REPAIR HAMMER TOE Hammer toe of left foot Ulcer of toe of left foot, with fat layer exposed ([facility]) 07/13/2024 9:00 AM EDT Health Maintenance Due Date Last Done Comments Diabetes: Annual Foot Exam 06/21/1945 Diabetes: Annual Retina Eye Exam 06/21/1945 DTaP,Tdap,and Td Vaccines (1 - Tdap) 1954 Zoster Vaccines (1 of 2) 1954 Depression Screening 03/13/2022 Medicare Annual Wellness Visit 03/13/2022 Osteoporosis Screening (Bone Density Screening) 03/13/2022 Social Influencers of Health Screening 03/13/2022 Diabetes: Blood Sugar Control Test (HGBA1C) 10/05/2023 04/06/2023 COVID-19 Vaccine ( season) 2023 01/12/2022, 01/08/2021, 06/02/2020, Additional history exists Falls Risk Assessment 06/01/2025 06/01/2024 Hypertension/CHF/CAD Annual BMP Blood Test 06/01/2025 06/01/2024, 05/31/2024, 04/25/2024, Additional history exists Cholesterol Screening (Lipid Panel) 04/06/2029 04/06/2024, 10/27/2023, 10/27/2023 Pneumococcal Vaccine: 50+ Years Completed 05/24/2019, 05/31/2018 Influenza Vaccine Completed [...] patient's age to complete this topic Meningococcal B Vacine Aged Out No lo nger eligible based on patient's age to complete this topic RSV Immunization Patients Under 20 months Aged Out No longer eligible based on patient's age to complete this topic Varicella Vaccines Aged Out No longer eligible based on patient's age to complete this topic Medical Devices Implanted Type Area French Weaver Device Identifier Shelf Expiration Date Model / Serial / Lot [facility] 2272 Assurity Mri(Tm) [id number] Implanted: (Quantity not on file) Cardiac Pacemaker [employer] 2272 ASSURITY MRI(TM) / [id number] / Procedures Procedure Name Priority Date/Time Associated Diagnosis Comments CARDIAC DEVICE CHECK- IN CLINIC- MURJ Routine 06/27/2024 1:06 PM EDT Encounter for adjustment or management of cardiac device ECG ANNOTATED 06/02/2024 VAS US DUPLEX CAROTID BILATERAL Routine 06/01/2024 2:34 PM EST Syncope, unspecified syncope type TRANSTHORACIC ECHOCARDIOGRAM (TTE) COMPLETE W/ CONTRAST Routine 06/01/2024 9:59 AM EST Syncope, unspecified syncope type CBC WITH AUTO DIFFERENTIAL Routine 06/01/2024 7:37 AM EST PROTHROMBIN TIME WITH INR Routine 06/01/2024 7:37 AM EST CBC AND DIFFERENTIAL Routine 06/01/2024 7:37 AM EST MAGNESIUM Routine 06/01/2024 7:37 AM EST BASIC METABOLIC PANEL Routine 06/01/2024 7:37 AM EST MITCHELL URINE CULTURE TUBE STAT 05/31/2024 10:39 PM EST URINALYSIS WITH REFLEX MICROSCOPIC AND CULTURE STAT 05/31/2024 10:39 PM EST URINALYSIS WITH REFLEX MICROSCOPIC AND CULTURE STAT 05/31/2024 10:39 PM EST CULTURE URINE STAT 05/31/2024 10:39 PM EST XR CHEST 1 VIEW STAT 05/31/2024 3:33 PM EST TROPONIN I HIGH SENSITIVITY STAT 05/31/2024 1:[address] CERVICAL SPINE WO CONTRAST STAT 05/31/2024 12:[address] HEAD WO CONTRAST STAT 05/31/2024 1 2:59 PM EST [id number], RSV, FLU A AND B QUALITATIVE RT-PCR, INTERNAL LAB STAT 05/31/2024 11:29 AM EST CBC WITH AUTO DIFFERENTIAL STAT 05/31/2024 11:28 AM EST B-TYPE NATRIURETIC PEPTIDE STAT 05/31/2024 11:28 AM EST MAGNESIUM STAT 05/31/2024 11:28 AM EST LIPASE STAT 05/31/2024 11:28 AM EST COMPREHENSIVE METABOLIC PANEL STAT 05/31/2024 11:28 AM EST CBC AND DIFFERENTIAL STAT 05/31/2024 11:28 AM EST TROPONIN I HIGH SENSITIVITY STAT 05/31/2024 11:28 AM EST ECG 12-LEAD STAT 05/31/2024 11:22 AM EST XR FOOT 3+ VIEWS LEFT Routine 05/16/2024 1:47 PM EST Left foot pain BASIC METABOLIC PANEL Routine 04/25/2024 3:32 PM EST Coronary artery disease involving [place] coronary artery of [place] heart without angina pectoris Primary hypertension CARDIAC DEVICE CHECK- REMOTE- MURJ Routine 04/24/2024 [...] HF chronicity, unspecified heart failure type (CMS/HCC) HEMOGLOBIN A1C Routine 04/06/2023 from Last 3 Months or Most Recently Relevant to Health Maintenance Results * CARDIAC DEVICE CHECK- IN CLINIC- MURJ (06/27/2024 1:06 PM EDT) Date Time Interrogation Session [id number] CV DEVICE CHECK Implantable Pulse Generator [employer] CV DEVICE CHECK Implantable Pulse Generator Type IPG CV DEVICE CHECK Implantable Pulse Generator Model 2272 Assurity MRI(TM) CV DEVICE CHECK Implantable Pulse Generator Serial Number [id number] CV DEVICE CHECK Implantable Pulse Generator Implant Date 20221001 CV DEVICE CHECK Battery Status Middle of Service CV DEVICE CHECK Nate Statistic RA Percent Paced 94.00 CV DEVICE CHECK Nate Statistic RV Percent Paced 99.00 CV DEVICE CHECK Atrial Tachy Statistic AT/AF [place] Percent 1.00 CV DEVICE CHECK Lead Channel Sensing Intrinsic Amplitude 3.200 CV DEVICE CHECK Lead Channel Setting Sensing Sensitivity 0.50 CV DEVICE CHECK Lead Channel Impedance Value 310 CV DEVICE CHECK Lead Channel Pacing Threshold Amplitude 1.500 CV DEVICE CHECK Lead Channel Pacing Threshold Pulse Width 0.4 CV DEVICE CHECK Lead Channel RA Pacing Threshold Date 2023-10-20 CV DEVICE CHECK Lead Channel Setting Pacing Amplitude 3.000 CV DEVICE CHECK Lead Channel Setting Pacing Pulse Width 0.4 CV DEVICE CHECK Lead Channel Setting Sensing Sensitivity 2.00 CV DEVICE CHECK Lead Channel Impedance Value 380 CV DEVICE CHECK Lead Channel Pacing Threshold Amplitude 0.880 CV DEVICE CHECK Lead Channel Pacing Threshold Pulse Width 0.4 CV DEVICE CHECK Lead Channel RV Pacing Threshold Date 2024-04-18 CV DEVICE CHECK Lead Channel Setting Pacing Amplitude 1.130 CV DEVICE CHECK Lead Channel Setting Pacing [...] 150 CV DEVICE CHECK Date of Service 2024-10-19 CV DEVICE CHECK Anatomical Region Laterality Modality Device Interroga tion 06/06/2024 Impressions 06/07/2024 9:53 AM EST Hospital Check * Patient was seen in hospital by * Reason: Pt in ER * Presenting rhythm: AP - FRYER OPERATOR 60's * Heart Rate Histograms reviewed * Device Function and programmed parameters reviewed * AMS event documented (EGM suggestive of PAT with small amount of noise Narrative Procedure Note Kassie Fairchild MD - 06/27/2024 IMPRESSION: Hospital Check * Patient was seen in hospital by * Reason: Pt in ER * Presenting rhythm: AP - FRYER OPERATOR 60's * Heart Rate Histograms reviewed * Device Function and programmed parameters reviewed * AMS event documented (EGM suggestive of PAT with small amount ofnoise us Order Referral Cardiovascular CV IMPLANTABLE CAR DIAC DEVICE PROCEDURES Final Result * ECG-Annotated (06/02/2024) us Provider Onbase ECG ORDERABLES Final Result * Vascular US duplex carotid bilateral (06/01/2024 2:34 PM EST) Anatomical Region Laterality Modality Vascular, Abdomen Ultrasound 06/01/2024 4:21 PM EST Impressions 06/01/2024 4:22 PM EST No hemodynamically significant stenosis or occlusion. -------- FINAL REPORT -------- Dictated By: Saul Munroe Dictated Date: 06/01/2024 16:21 ET Assigned Physician: Saul Munroe Reviewed and Electronically Signed By: Saul Munroe Signed Date: 06/01/2024 16:22 ET Workstation ID: [id number] Transcribed By: Self Edit Transcribed Date: 06/01/2024 16:21 ET Narrative 06/01/2024 4:22 PM EST PROCEDURE: Carotid ultrasound. HISTORY: Syncope/fainting. TECHNIQUE: Grayscale, color Doppler, and spectral Doppler ultrasound evaluation of the carotid and vertebral arteries in the neck. COMPARISON: FINDINGS: Grayscale ultrasound evaluation of the carotid arteries demonstrates atherosclerotic plaque at the bulbs. ??Spectral Doppler evaluation demonstrates normal carotid arterial waveforms with no focally elevated peak systolic velocity to suggest a hemodynamically significant stenosis. Antegrade flow with normal spectral Doppler tracings in both vertebral arteries. Procedure Note Saul Munroe MD - 06/01/2024 PROCEDURE: Carotid ultrasound. HISTORY: Syncope/fainting. TECHNIQUE: Grayscale, color Doppler, and spectral Doppler ultrasoundevaluation of the carotid and vertebral arteries in the neck. COMPARISON: FINDINGS: Grayscale ultrasound evaluation of the carotid arteries demonstratesatherosclerotic plaque at the bulbs. Spectral Doppler evaluationdemonstrates normal carotid arterial waveforms with no focally elevatedpeak systolic velocity to suggest a hemodynamically significantstenosis. Antegrade flow with normal spectral Doppler tracings in both vertebralarteries. IMPRESSION: No hemodynamically significant stenosis or occlusion. -------- FINAL REPORT -------- Dictated By: Saul Munroe Dictated Date: 06/01/2024 16:21 ET Assigned Physician: Saul Munroe Reviewed and Electronically Signed By: Saul Munroe Signed Date: 06/01/2024 16:22 ET Workstation ID: [id number] Transcribed By: Self Edit Transcribed Date: 06/01/2024 16:21 ET us Romario Rich MD CV VASCULAR PROCEDURES Final Result * (ABNORMAL) TRANSTHORACIC ECHOCARDIOGRAM (TTE) COMPLETE W/ CONTRAST (06/01/2024 9:59 AM EST) Left Atrium Minor [place] 6.8 cm CV PACS Left Atrium Major [place] 6.1 cm CV PACS LA Area Sys (A2C) 27 cm2 CV PACS LA Area Sys (A4C) 21 cm2 CV PACS LA Volume (BP) 73 mL CV PACS RA Area 20.0 cm2 CV PACS RA 2D Volume 51 mL CV PACS Aortic Sinus Valsalva 3.2 cm CV PACS Ascending Aorta 3.3 cm CV PACS IVSD 1.1(A) 0.6 - 0.9 cm CV PACS LVIDD 4.8 3.8 - 5.2 cm CV PACS LVIDS 2.5 2.2 - 3.5 cm CV PACS LVOT Diameter 1.9 cm CV PACS LVPWD 1.0(A) 0.6 - 0.9 cm CV PACS MV E' Tissue Velocity Lateral 7 cm/s CV PACS MV E' Tissue Velocity Septal 5 cm/s CV PACS LVOT Area 2.8 cm2 CV PACS MV Deceleration [place] 4.8 m/s2 CV PACS E Wave Deceleration Time 211 119 - 242 ms CV PACS MV PHT 62 ms CV PACS MV Peak A Juanito 0.53 m/s CV PACS MV Peak E [place] 1.02 m/s CV PACS MV Area PHT 3.6 cm2 CV PACS RV Diastolic Basal Dimension 4.0 2.5 - 4.1 cm CV PACS RV S' 8 cm/s CV PACS TAPSE 16 mm CV PACS TR Peak Velocity 3.26 m/s CV PACS TR Peak Gradient 43 mmHg CV PACS E/E' Ratio Septal 20 CV PACS E/E' Ratio Averaged 17 CV PACS Relative Wall Thickness ratio 0.42 CV PACS FS 48 % CV PACS LV Mass 2D 182 g CV PACS Ascending Aorta Index 1.68 cm/m2 CV PACS RA 2D Volume Index 26 mL/m2 CV PACS LVIDD Index 2.44 cm/m2 CV PACS LVIDS Index 1.27 cm/m2 CV PACS E/A Ratio 1.9 CV PACS E/E' Ratio Lateral 15 CV PACS LA Volume Index (BP) 37 mL/m2 CV PACS LV Mass Index 2D 92 g/m2 CV PACS BSA 2.03 m2 CV PACS Right Ventricular Peak Systolic Pressure 46 mmHg CV PACS Est. RA Pressure 3 mmHg CV PACS Anatomical Region Laterality Modality Ultrasound Narrative 06/01/2024 11:02 AM EST ?Left ventricle cavity size is normal. Left ventricular systolic function is moderately decreased with an ejection fraction of 35-40%. ?Left??Ventricle wall motion: There is akinesis of the entire inferior wall. ??There is hypokinesis of the basal to mid inferoseptal wall and mid inferolateral wall. 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 ??There is evidence of significant contrast swirling in the apical aneurysm but no clear evidence of any formed thrombus ?Left ventricle mild concentric hypertrophy. ?There is Grade II (moderate) diastolic dysfunction. ?Right ventricle cavity is normal. Right ventricular systolic function is moderately reduced. ?A pacer wire is present in the right atrium and ventricle. ?Mitral??Valve: There is mild regurgitation. ?Tricuspid??Valve: There is moderate regurgitation. The right ventricular systolic pressure is mildly ??elevated. The RVSP is estimated at 46 mmHg. Left Ventricle Left ventricle cavity size is normal. There is mild concentric hypertrophy. Systolic function is moderately decreased with an ejection fraction of 35-40%. There is akinesis of the entire inferior wall. There is hypokinesis of the basal to mid inferoseptal wall and mid inferolateral wall. 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 There is evidence of significant contrast swirling in the apical aneurysm but no clear evidence of any formed thrombus. There is Grade II (moderate) diastolic dysfunction. Right Ventricle Right ventricle cavity appears normal. Systolic function is moderately reduced. A pacer wire is present in the right ventricle. Left Atrium Left atrium cavity is mildly dilated. Right Atrium Right atrium cavity is normal. IVC/SVC Inferior vena cava structure is normal. RA pressures is estimated to be 3 mmHg (IVC diameter <21 mm and decreases >50% during inspiration). Mitral Valve The leaflets are moderately thickened. There is moderate posterior annular calcification. There is mild regurgitation. There is no evidence of mitral valve stenosis. Tricuspid Valve The leaflets exhibit normal excursion. There is moderate regurgitation. There is no evidence of tricuspid valve stenosis. The right ventricular systolic pressure is mildly elevated. The RVSP is estimated at 46 mmHg. Aortic Valve The aortic valve is trileaflet. The leaflets are mildly thickened. There is no regurgitation or stenosis. Pulmonic Valve Visualized portions of the pulmonic valve appear normal. There is mild pulmonic valve regurgitation. There is no evidence of pulmonic valve stenosis. Ascending Aorta The aorta appears normal in size. Pericardium There is an anterior fat pad. There is no pericardial effusion. Study Details Overall the study quality was technically difficult. Definity contrast was given to enhance imaging. Study was difficult due to: poor endocardial visualization and procedure performed with the patient in a supine position. Terra Garcia NP CV ECHO PROCEDURES Final Result * (ABNORMAL) CBC auto differential (06/01/2024 7:37 AM EST) Only the most recent of3 resultswithin the time period is included. [facility] WBC 9.1 4.8 - 10.8 K/mcL LAB HEMETOLOGY METHOD 06/01/2024 7:56 AM [facility] RBC 3.90 3.80 - 4.80 M/mcL LAB HEMETOLOGY METHOD 06/01/2024 7:56 AM [facility] Hemoglobin 12.0 11.5 - 16.0 g/dL LAB HEMETOLOGY METHOD 06/01/2024 7:56 AM [facility] Hematocrit 38.2 35.0 - 47.0 % LAB HEMETOLOGY METHOD 06/01/2024 7:56 AM [facility] MCV 99.2(H) 79.0 - 98.0 FL LAB HEMETOLOGY METHOD 06/01/2024 7:56 AM [facility] MCH 31.2 27.0 - 32.0 pcg LAB HEMETOLOGY METHOD 06/01/2024 7:56 AM [facility] MCHC 31.4(L) 32.0 - 37.0 g/dL LAB HEMETOLOGY METHOD 06/01/2024 7:56 AM [facility] RDW 14.0 11.0 - 15.0 % LAB HEMETOLOGY METHOD 06/01/2024 7:56 AM [facility] Platelets 193 130 - 400 K/mcL LAB HEMETOLOGY METHOD 06/01/2024 7:56 AM [facility] MPV 11.4(H) 7.0 - 11.0 FL LAB HEMETOLOGY METHOD 06/01/2024 7:56 AM [facility] NRBC 0.0 <1.0 % LAB HEMETOLOGY METHOD 06/01/2024 7:56 AM [facility] NRBC Absolute 0.00 <0.10 K/mcL LAB HEMETOLOGY METHOD 06/01/2024 7:56 AM [facility] Neutrophils Relative 70.3 % LAB HEMETOLOGY METHOD 06/01/2024 7:56 AM [facility] Lymphocytes Relative 18.8 % LAB HEMETOLOGY METHOD 06/01/2024 7:56 AM [facility] Monocytes Relative 8.4 % LAB HEMETOLOGY METHOD 06/01/2024 7:56 AM [facility] Eosinophils Relative 2.0 % LAB HEMETOLOGY METHOD 06/01/2024 7:56 AM [facility] Basophils Relative 0.2 % LAB HEMETOLOGY METHOD 06/01/2024 7:56 AM [facility] Immature Granulocytes Relative 0.3 % LAB HEMETOLOGY METHOD 06/01/2024 7:56 AM [facility] Neutrophils Absolute 6.42 1.50 - 7.00 K/mcL LAB HEMETOLOGY METHOD 06/01/2024 7:56 AM [facility] Lymphocytes Absolute 1.72 1.00 - 5.00 K/mcL LAB HEMETOLOGY METHOD 06/01/2024 7:56 AM [facility] Monocytes Absolute 0.77 0.20 - 1.00 K/mcL LAB HEMETOLOGY METHOD 06/01/2024 7:56 AM [facility] Eosinophils Absolute 0.18 0.00 - 0.50 K/mcL LAB HEMETOLOGY METHOD 06/01/2024 7:56 AM [facility] Basophils Absolute 0.02 0.00 - 0.20 K/mcL LAB HEMETOLOGY METHOD 06/01/2024 7:56 AM [facility] Immature Granulocytes Absolute 0.03 0.00 - 0.03 K/mcL LAB HEMETOLOGY METHOD 06/01/2024 7:56 AM [facility] Blood Venous blood specimen / Unknown Venipuncture / Unknown 06/01/2024 7:37 AM EST 06/01/2024 7:42 AM EST us tSephen Gray MD LAB BLOOD ORDERABLES Final Re sult Performing Organization Address City/[facility]/ZIP Co de Phone Number [facility] [address] [place] [address], [place] [phone] * (ABNORMAL) Prothrombin time with INR (06/01/2024 7:37 AM EST) Protime 21.5(H) 10.6 - 13.9 sec LAB COAGULATION METHOD 06/01/2024 7:58 AM EST [facility] INR 1.7 LAB COAGULATION METHOD 06/01/2024 7:58 AM EST [facility] Blood Venous blood specimen / Unknown Venipuncture / Unknown 06/01/2024 7:37 AM EST 06/01/2024 7:42 AM EST Terra Garcia NP LAB BLOOD ORDERABLES Fin al Result Performing Organization Address [facility]/ZIP Co de Phone Number [facility] [address] [place] [address], [place] [phone] * Magnesium (06/01/2024 7:37 AM EST) Only the most recent of2 resultswithin the time period is included. Pathologist [facility] Magnesium 2.6 1.9 - 2.6 mg/dL LAB CHEMISTRY METHOD 06/01/2024 8:27 AM EST [facility] Blood Venous blood specimen / Unknown Venipuncture / Unknown 06/01/2024 7:37 AM EST 06/01/2024 7:42 AM EST us Stephen Gray MD LAB BLOOD ORDERABLES Final Re sult Performing Organization Address City/[facility]/ZIP Co de Phone Number [facility] [address] [place] [address], [place] [phone] * (ABNORMAL) Basic metabolic panel (06/01/2024 7:37 AM EST) Only the most recent of2 resultswithin the time period is included. Sodium 137 133 - 145 mmol/L LAB CHEMISTRY METHOD 06/01/2024 9:03 AM [facility] Potassium 4.4 3.5 - 5.5 mmol/L LAB CHEMISTRY METHOD 06/01/2024 9:03 AM [facility] Chloride 105 96 - 110 mmol/L LAB CHEMISTRY METHOD 06/01/2024 9:03 AM [facility] CO2 27 21 - 32 mmol/L LAB CHEMISTRY METHOD 06/01/2024 9:03 AM [facility] Anion Gap 5 3 - 11 LAB CHEMISTRY METHOD 06/01/2024 9:03 AM [facility] Glucose 104(H) 70 - 100 mg/dL LAB CHEMISTRY METHOD 06/01/2024 9:03 AM [facility] BUN 38(H) 5 - 25 mg/dL LAB CHEMISTRY METHOD 06/01/2024 9:03 AM [facility] Creatinine 1.25(H) 0.50 - 1.10 mg/dL LAB CHEMISTRY METHOD 06/01/2024 9:03 AM [facility] eGFR 42(L) >=60 mL/min/1. 73m2 LAB CHEMISTRY METHOD 06/01/2024 9:03 AM [facility] Comment:Calculation based on the??Chronic Kidney Disease Epidemiology Collaboration (CKD-EPI) equation refit??without adjustment for race. BUN/Creatinine Ratio 30.4 LAB CHEMISTRY METHOD 06/01/2024 9:03 AM [facility] Calcium 9.5 8.5 - 10.5 mg/dL LAB CHEMISTRY METHOD 06/01/2024 9:03 AM [facility] Blood Venous blood specimen / Unknown Venipuncture / Unknown 06/01/2024 7:37 AM EST 06/01/2024 7:42 AM EST us Stephen rGay MD LAB BLOOD ORDERABLES Final Re sult [facility] [address] [place] [address], [place] [phone] * (ABNORMAL) Urinalysis with reflex microscopic and culture (05/31/2024 10:39 PM EST) Specific [place] Urine 1.017 1.003 - 1.030 LAB URINALYSIS - AUTOMATED METHOD 05/31/2024 11:32 PM [facility] pH, Urine 5.5 5.0 - 8.0 pH LAB URINALYSIS - AUTOMATED METHOD 05/31/2024 11:32 PM [facility] Leukocytes, Urine Trace(A) Negative LAB URINALYSIS - AUTOMATED METHOD 05/31/2024 11:32 PM [facility] Nitrite, Urine Negative Negative LAB URINALYSIS - AUTOMATED METHOD 05/31/2024 11:32 PM [facility] Protein, Urine Negative <=Trace mg/dL LAB URINALYSIS - AUTOMATED METHOD 05/31/2024 11:32 PM [facility] Glucose, Urine >=1000(A) Negative mg/dL LAB URINALYSIS - AUTOMATED METHOD 05/31/2024 11:32 PM [facility] Ketones, Urine Negative Negative mg/dL LAB URINALYSIS - AUTOMATED METHOD 05/31/2024 11:32 PM [facility] Urobilinogen , Urine 0.2 0.2 - 1.0 mg/dL LAB URINALYSIS - AUTOMATED METHOD 05/31/2024 11:32 PM [facility] Bilirubin, Urine Negative Negative LAB URINALYSIS - AUTOMATED METHOD 05/31/2024 11:32 PM [facility] Blood, Urine Negative Negative LAB URINALYSIS - AUTOMATED METHOD 05/31/2024 11:32 PM [facility] RBC, Urine 1.2 0 - 4 /HPF LAB URINALYSIS - AUTOMATED METHOD 05/31/2024 11:32 PM [facility] WBC, Urine 7.1(H) 0 - 4 /HPF LAB URINALYSIS - AUTOMATED METHOD 05/31/2024 11:32 PM [facility] Squamous Epithelial, Urine 35 0 - 60 /LPF LAB URINALYSIS - AUTOMATED METHOD 05/31/2024 11:32 PM [facility] Bacteria, Urine Negative Negative /HPF LAB URINALYSIS - AUTOMATED METHOD 05/31/2024 11:32 PM [facility] Hyaline Casts, Urine 1.2 0 - 3 /LPF LAB URINALYSIS - AUTOMATED METHOD 05/31/2024 11:32 PM [facility] Urine Urine specimen obtained by clean catch procedure / Unknown Non-blood Collection / Unknown 05/31/2024 10:39 PM EST 05/31/2024 11:01 PM EST us Dionicio Zhou MD LAB URINE ORDERABLES Final Re sult Performing Organization Address [facility]/ZIP Co de Phone Number [facility] [address] [place] [address], [place] [phone] * Mitchell urine culture tube (05/31/2024 10:39 PM EST) Extra Tube Hold for add-ons. 06/01/2024 1:09 AM [facility] Comment:Auto resulted. Urine Urine specimen obtained by clean catch procedure / Unknown Non-blood Collection / Unknown 05/31/2024 10:39 PM EST 05/31/2024 11:01 PM EST us Dionicio Zhou MD LAB URINE ORDERABLES Final Re sult Performing Organization Address City/[facility]/ZIP Co de Phone Number [facility] [address] [place] [address], [place] [phone] * Culture urine (05/31/2024 10:39 PM EST) Culture, Urine <10,000 cfu/ml, insignificant count, no further workup. 06/02/2024 10:22 AM EST [facility] Urine Urine specimen obtained by clean catch procedure / Unknown Non-blood Collection / Unknown 05/31/2024 10:39 PM EST 05/31/2024 11:32 PM EST us Dionicio Zhou MD LAB MICROBIOLOGY - GENERAL OR DERABLES Final Result [facility] [address] [place] [address], [place] [phone] * XR Chest 1 View (05/31/2024 3:33 PM EST) Anatomical Region Laterality Modality Body Radiographic Lissette ging 05/31/2024 3:52 PM EST Impressions 05/31/2024 3:53 PM EST FINDINGS/IMPRESSION: Mild cardiomegaly with stable appearance of the left pacer and leads. ??Postoperative mediastinum. ??No consolidation or effusion. ??No pulmonary edema. -------- FINAL REPORT -------- Dictated By: Saul Munroe Dictated Date: 05/31/2024 15:52 ET Assigned Physician: Saul Munroe Reviewed and Electronically Signed By: Saul Munroe Signed Date: 05/31/2024 15:53 ET Workstation ID: [id number] Transcribed By: Self Edit Transcribed Date: 05/31/2024 15:52 ET Narrative 05/31/2024 3:53 PM EST XR CHEST 1 VIEW INDICATION: Syncope TECHNIQUE: XR CHEST 1 VIEW COMPARISON: 10/01/2022 Procedure Note Saul Munroe MD - 05/31/2024 XR CHEST 1 VIEW INDICATION: Syncope TECHNIQUE: XR CHEST 1 VIEW COMPARISON: 10/01/2022 IMPRESSION: FINDINGS/IMPRESSION: Mild cardiomegaly with stable appearance of the leftpacer and leads. Postoperative mediastinum. No consolidation oreffusion. No pulmonary edema. -------- FINAL REPORT -------- Dictated By: Saul Munroe Dictated Date: 05/31/2024 15:52 ET Assigned Physician: Saul Munroe Reviewed and Electronically Signed By: Saul Munroe Signed Date: 05/31/2024 15:53 ET Workstation ID: [id number] Transcribed By: Self Edit Transcribed Date: 05/31/2024 15:52 ET Dionicio Zhou MD IMG XR PROCEDURES Final Resul t * Troponin I high sensitivity (05/31/2024 1:40 PM EST) Only the most recent of2 resultswithin the time period is included. High Sensitivity Troponin I 16 <=54 ng/L LAB CHEMISTRY METHOD 05/31/2024 2:37 PM EST [facility] Blood Venous blood specimen / Unknown Venipuncture / Unknown 05/31/2024 1:40 PM EST 05/31/2024 1:59 PM EST Narrative [facility] - 05/31/2024 2:37 PM EST High levels of biotin in samples may falsely decrease hsTroponin values. ??Use caution when interpreting hsTroponin results in patients taking biotin who exhibit renal impairment (eGFR <60) or in patients taking more than 20 mg/day of biotin. Christophe Gonzalez MD LAB BLOOD ORDERABLES Aileen ma Result [facility] [address] [place] [address], [place] [phone] * CT Cervical Spine wo Contrast (05/31/2024 12:59 PM EST) Anatomical Region Laterality Modality Spine, C-spine Computed Tomogra phy 05/31/2024 1:12 PM EST Impressions 05/31/2024 1:14 PM EST No acute cervical spine fracture. -------- FINAL REPORT -------- Dictated By: Saul Munroe Dictated Date: 05/31/2024 13:12 ET Assigned Physician: Saul Munroe Reviewed and Electronically Signed By: Saul Munroe Signed Date: 05/31/2024 13:14 ET Workstation ID: [id number] Transcribed By: Self Edit Transcribed Date: 05/31/2024 13:12 ET Narrative 05/31/2024 1:14 PM EST PROCEDURE: CT Cervical Spine INDICATION: Neck pain, > 4 wks or red flag, neg xray (Ped 0-18y) TECHNIQUE: Noncontrast CT of the cervical spine with multiplanar reformats. The examination was performed utilizing dose reduction techniques. DLP: 1949mGy/cm COMPARISON: ??No priors available. FINDINGS: ?? No fracture. Multilevel degenerative changes are seen throughout the cervical spine with endplate irregularities, disc height loss, uncovertebral spurring and facet arthropathy present. ??Presumed mild degenerative anterolisthesis of C4 on C5. Lung apices are clear. Thyroid nodules. ??Carotid vascular calcifications. Procedure Note Saul Munroe MD - 05/31/2024 PROCEDURE: CT Cervical Spine INDICATION: Neck pain, > 4 wks or red flag, neg xray (Ped 0-18y) TECHNIQUE: Noncontrast CT of the cervical spine with multiplanarreformats. The examination was performed utilizing dose reduction techniques. DLP:1949mGy/cm COMPARISON: No priors available. FINDINGS: No fracture. Multilevel degenerative changes are seen throughout the cervical spinewith endplate irregularities, disc height loss, uncovertebral spurring andfacet arthropathy present. Presumed mild degenerative anterolisthesis ofC4 on C5. Lung apices are clear. Thyroid nodules. Carotid vascularcalcifications. IMPRESSION: No acute cervical spine fracture. -------- FINAL REPORT -------- Dictated By: Saul Munroe Dictated Date: 05/31/2024 13:12 ET Assigned Physician: Saul Munroe Reviewed and Electronically Signed By: Saul Munroe Signed Date: 05/31/2024 13:14 ET Workstation ID: [id number] Transcribed By: Self Edit Transcribed Date: 05/31/2024 13:12 ET Christophe Gonzalez MD IM CT PROCEDURES Final R esult * CT Head wo Contrast (05/31/2024 12:59 PM EST) Anatomical Region Laterality Modality Head and Neck Computed Tomogra phy 05/31/2024 1:10 PM EST Impressions 05/31/2024 1:12 PM EST NO ACUTE INTRACRANIAL ABNORMALITY. -------- FINAL REPORT -------- Dictated By: Saul Munroe Dictated Date: 05/31/2024 13:10 ET Assigned Physician: Saul Munroe Reviewed and Electronically Signed By: Saul Munroe Signed Date: 05/31/2024 13:12 ET Workstation ID: [id number] Transcribed By: Self Edit Transcribed Date: 05/31/2024 13:10 ET Narrative 05/31/2024 1:12 PM EST PROCEDURE: HEAD CT INDICATION: Headache, secondary (Ped 0-18y) TECHNIQUE: CT of the head without intravenous contrast. Multiplanar reformats. The examination was performed utilizing dose reduction techniques. Total DLP 1948 COMPARISON: ??No priors available. FINDINGS: ?? No acute territorial infarct, mass effect, or intracranial hemorrhage. No significant white matter disease No hydrocephalus. Visualized paranasal sinuses are clear. Mastoid air cells are clear. Small calcified meningioma at the right vertex. Procedure Note Saul Munroe MD - 05/31/2024 PROCEDURE: HEAD CT INDICATION: Headache, secondary (Ped 0-18y) TECHNIQUE: CT of the head without intravenous contrast. Multiplanarreformats. The examination was performed utilizing dose reductiontechniques. Total DLP 1948 COMPARISON: No priors available. FINDINGS: No acute territorial infarct, mass effect, or intracranial hemorrhage. No significant white matter disease No hydrocephalus. Visualized paranasal sinuses are clear. Mastoid air cells are clear. Small calcified meningioma at the right vertex. IMPRESSION: NO ACUTE INTRACRANIAL ABNORMALITY. -------- FINAL REPORT -------- Dictated By: Saul Munroe Dictated Date: 05/31/2024 13:10 ET Assigned Physician: Saul Munroe Reviewed and Electronically Signed By: Saul Munroe Signed Date: 05/31/2024 13:12 ET Workstation ID: [id number] Transcribed By: Self Edit Transcribed Date: 05/31/2024 13:10 ET Christophe Gnozalez MD IM CT PROCEDURES Final R esult * [id number], RSV, Influenza A and B qualitative RT-PCR (05/31/2024 11:29 AM EST) Influenza A PCR Not Detected Not Detected LAB MICROBIOLOGY METHOD 05/31/2024 1:22 PM EST [facility] Influenza B PCR Not Detected Not Detected LAB MICROBIOLOGY METHOD 05/31/2024 1:22 PM EST [facility] RSV PCR Not Detected Not Detected LAB MICROBIOLOGY METHOD 05/31/2024 1:22 PM [facility] SARS COV-2 Not Detected Not Detected LAB MICROBIOLOGY METHOD 05/31/2024 1:22 PM [facility] Swab Both anterior nares / Unknown Non-blood Collection / Unknown 05/31/2024 11:29 AM EST 05/31/2024 12:18 PM EST [facility] - 05/31/2024 1:22 PM EST Disclaimer: ??Testing was performed using the [employer] GeneXpert Xpress SARS-CoV-2 _Flu_RSV PLUS PCR assay. ??The manner in which this information is used to guide patient care is the responsibility of the healthcare provider. ??Results should be correlated with the clinical history, epidemiological data, and other data available to the clinician evaluating the patient. ??Negative results do not preclude infection. ??This test has been authorized by the FDA under an Emergency Use Authorization (EUA). ??This test is only authorized for the duration of time the declaration that circumstances exist justifying the authorization of the emergency use of in vitro diagnostic tests for detection of SARS-CoV-2 virus and/or diagnosis of COVID-19 infection under section 564 (b) (1) of the Act, 21 U.S.C 360bbb-3 (b) (1), unless the authorization is terminated or revoked sooner. ?? Reference Range: Not Detected Fact sheet for Healthcare providers can be found at https://www.fda.gov/media/423392/download. ?? Fact sheet for Healthcare patients can be found at https://www.fda.gov/media/476457/download. Dionicio Zhou MD LAB MICROBIOLOGY - GENERAL OR DERABLES Final Result Performing Organization Address [facility] Co de Phone Number [facility] [address] [place] [address], [place] [phone] * (ABNORMAL) B-type natriuretic peptide (05/31/2024 11:28 AM EST) Pathologist [facility] BNP 114(H) <=100 pcg/mL LAB CHEMISTRY METHOD 05/31/2024 1:19 PM EST [facility] Blood Venous blood specimen / Unknown Venipuncture / Unknown 05/31/2024 11:28 AM EST 05/31/2024 12:20 PM EST Christophe Gonzalez MD LAB BLOOD ORDERABLES Aileen l Result Performing Organization Address [facility] Phone Number [facility] [address] [place] [address], [place] [phone] * Lipase (05/31/2024 11:28 AM EST) Pathologist [facility] Lipase 49 13 - 75 unit/L LAB CHEMISTRY METHOD 05/31/2024 12:57 PM EST [facility] Blood Venous blood specimen / Unknown Venipuncture / Unknown 05/31/2024 11:28 AM EST 05/31/2024 12:20 PM EST Christophe Gonzalez MD LAB BLOOD ORDERABLES Aileen l Result Performing Organization Address [facility] Co de Phone Number [facility] [address] [place] [address], [place] [phone] * (ABNORMAL) Comprehensive metabolic panel (05/31/2024 11:28 AM EST) Only the most recent of2 resultswithin the time period is included. Sodium 135 133 - 145 mmol/L LAB CHEMISTRY METHOD 05/31/2024 1:35 PM [facility] Potassium 5.0 3.5 - 5.5 mmol/L LAB CHEMISTRY METHOD 05/31/2024 1:35 PM [facility] Chloride 102 96 - 110 mmol/L LAB CHEMISTRY METHOD 05/31/2024 1:35 PM [facility] CO2 28 21 - 32 mmol/L LAB CHEMISTRY METHOD 05/31/2024 1:35 PM [facility] Anion Gap 5 3 - 11 LAB CHEMISTRY METHOD 05/31/2024 1:35 PM [facility] Glucose 115(H) 70 - 100 mg/dL LAB CHEMISTRY METHOD 05/31/2024 1:35 PM [facility] BUN 42(H) 5 - 25 mg/dL LAB CHEMISTRY METHOD 05/31/2024 1:35 PM [facility] Creatinine 1.18(H) 0.50 - 1.10 mg/dL LAB CHEMISTRY METHOD 05/31/2024 1:35 PM [facility] eGFR 45(L) >=60 mL/min/1. 73m2 LAB CHEMISTRY METHOD 05/31/2024 1:35 PM [facility] Comment:Calculation based on the??Chronic Kidney Disease Epidemiology Collaboration (CKD-EPI) equation refit??without adjustment for race. BUN/Creatinine Ratio 35.6 LAB CHEMISTRY METHOD 05/31/2024 1:35 PM [facility] Calcium 9.6 8.5 - 10.5 mg/dL LAB CHEMISTRY METHOD 05/31/2024 1:35 PM [facility] AST (SGOT) 11 10 - 42 unit/L LAB CHEMISTRY METHOD 05/31/2024 1:35 PM EST [facility] ALT (SGPT) 19 10 - 60 unit/L LAB CHEMISTRY METHOD 05/31/2024 1:35 PM EST [facility] Alkaline Phosphatase 50 42 - 121 unit/L LAB CHEMISTRY METHOD 05/31/2024 1:35 PM EST [facility] Total Protein 6.4 6.0 - 8.0 g/dL LAB CHEMISTRY METHOD 05/31/2024 1:35 PM EST [facility] Albumin 3.5 3.2 - 5.0 g/dL LAB CHEMISTRY METHOD 05/31/2024 1:35 PM [facility] Total Bilirubin 0.7 0.0 - 1.4 mg/dL LAB CHEMISTRY METHOD 05/31/2024 1:35 PM [facility] Blood Venous blood specimen / Unknown Venipuncture / Unknown 05/31/2024 11:28 AM EST 05/31/2024 12:20 PM EST us Christophe Gonzalez MD LAB BLOOD ORDERABLES Aileen l Result [facility] [address] [place] [address], * ECG 12 lead (05/31/2024 11:22 AM EST) Only the most recent of2 resultswithin the time period is included. Ventricular Rate ECG 62 BPM GEMUSE Atrial Rate 62 BPM GEMUSE P-R Interval 204 ms GEMUSE QRS Duration 154 ms GEMUSE Q-T Interval 494 ms GEMUSE QTc 501 ms GEMUSE R [place] 160 degrees GEMUSE T [place] 88 degrees GEMUSE ECG Interpretation AV dual-paced rhythm Abnormal ECG When compared with ECG of 18-APR-2024 14:25, No significant changes are noted Confirmed by KASSIE ELENA ([id number]) on 05/31/2024 4:33:09 PM GEMUSE 05/31/2024 11:2 2 AM EST 05/31/2024 4:33 PM EST us Christophe Gonzalez MD ECG ORDERABLES Final Res ult GEMUSE * XR Foot 3+ Views Left (05/16/2024 1:47 PM EST) Only the most recent of2 resultswithin the time period is included. 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 No acute findings of the left hallux aside from heterotrophic bone X ptosis and mild contractural deformity us Dread Verde DPM IMG XR PROCEDURES Final R esult * Cardiac device check - Remote- MURJ (04/24/2024 12:24 PM EST) Date Time Interrogation Session [id number] CV DEVICE CHECK Type Interrogation Session Remote Scheduled CV DEVICE CHECK Implantable Pulse Generator [place] CV DEVICE CHECK Implantable Pulse Generator Type IPG CV DEVICE CHECK Implantable Pulse Generator Model 2272 Assurity MRI(TM) CV DEVICE CHECK Implantable Pulse Generator Serial Number [id number] CV DEVICE CHECK Implantable Pulse Generator Implant Date 20221001 CV DEVICE CHECK Battery Remaining Percentage 83.00 CV DEVICE CHECK Battery Remaining Longevity 65.0 CV DEVICE CHECK Battery Voltage 2.980 CV D EVICE CHECK Battery COGNOS REPORT DEVELOPER Trigger 2.600 CV DEVICE CHECK Battery Status Middle of Service CV DEVICE CHECK Nate Statistic RA Percent Paced 80.00 CV DEVICE CHECK Nate Statistic RV Percent Paced 99.00 CV DEVICE CHECK Atrial Tachy Statistic AT/AF [place] Percent 0.00 CV DEVICE CHECK Lead Channel [...] parameters reviewed * Presenting rhythm: AP - FRYER OPERATOR 60 bpm * Heart Rate Histograms reviewed Narrative Procedure Note Kassie Fairchild MD - 04/24/2024 IMPRESSION: Normal Remote: With Events * Normal Device Function * Events or Alerts: 3 'AMS' events noted; EGM's available suggestive ofbrief Atrial noise (new) which does not impact pacing * Battery: Battery is at 83%, 5.42 yrs * Sensing, impedance and thresholds reviewed * Programmed parameters reviewed * Presenting rhythm: AP - FRYER OPERATOR 60 bpm * Heart Rate Histograms reviewed us Kassie Fairchild MD CV IMPLANTABLE CARDIAC DEVICE PROCEDURES Final Result * Lipid panel with reflex to direct LDL (04/06/2024 12:10 PM EST) Cholesterol 154 0 - 200 mg/dL LAB CHEMISTRY METHOD 04/06/2024 3:06 PM EST [facility] Triglycerides 95 0 - 150 mg/dL LAB CHEMISTRY METHOD 04/06/2024 3:06 PM EST [facility] HDL 49 >=40 mg/dL LAB CHEMISTRY METHOD 04/06/2024 3:06 PM [facility] LDL Calculated 86 0 - 100 mg/dL LAB CHEMISTRY METHOD 04/06/2024 3:06 PM [facility] VLDL Cholesterol Ed 19 mg/dL LAB CHEMISTRY METHOD 04/06/2024 3:06 PM [facility] Non HDL Chol. (LDL+VLDL) 105 <145 mg/dL LAB CHEMISTRY METHOD 04/06/2024 3:06 PM [facility] Chol/HDL Ratio 3.1 0.0 - 4.4 LAB CHEMISTRY METHOD 04/06/2024 3:06 PM [facility] Blood Venous blood specimen / Unknown Venipuncture / Unknown 04/06/2024 12:10 PM EST 04/06/2024 12:10 PM EST us Castro Cardoso MD LAB BLOOD ORDERABLES Final Resul t Performing Organization Address City/[facility]/ZIP Co de Phone Number [facility] [address] [place] [address], [place] [phone] * Thyroid stimulating hormone (04/06/2024 12:10 PM EST) TSH 1.67 0.40 - 4.00 mcIU/mL LAB CHEMISTRY METHOD 04/06/2024 3:14 PM EST [facility] Blood Venous blood specimen / Unknown Venipuncture / Unknown 04/06/2024 12:10 PM EST 04/06/2024 12:10 PM EST us Castro Cardoso MD LAB BLOOD ORDERABLES Final Resul t [facility] [address] [place] [address], [place] [phone] * Hemoglobin A1c (04/06/2023) Hemoglobin A1C 6.2 <=6.5 % Blood Venous blood specimen / Unknown us Historical Provider LAB BLOOD ORDERABLES Aileen l Result from Last 3 Months or Most Recently Relevant to Health Maintenance Insurance [employer] Advance Directives Documents on File Type Date Recorded Patient Central Control Room Operator Expl anation Health Care Decision (hx) 05/22/2020 [...] Care Decision (hx) 05/21/2020 AD ALFONSO DIRECTIVE * Full Code - Confirmed (Latest Code Status on File) Date Activated Date Inactivated Comments 05/31/2024 8:10 PM 06/01/2024 7:[address] atus was ascertained in the following way: Code status discussion: discussion with patient To update the patient's code status, place a code status order. Do not modify or discontinue any currently active code status orders. * Full Code - Default Date Activated Date Inactivated Comments 05/31/2024 6:22 PM 05/31/2024 8:10 PM This is orde r is used when code status has not been discussed with the patient, or code status is otherwise unknown/unconfirmed To update the patient's code status, place a code status order. Do not modify or discontinue any currently active code status orders. Care Teams Director Of Casework Relationship Specialty Start Date End Date Castro Cardoso MD [address] [facility] [address] [place] [address] PCP - General Internal Medicine 03/08/13
--- OUTSIDE RECORDS SUMMARY | 2024-07-03 17:00 | XMS_ITS | Patient Health Record ---
Author Organization [facility] Address [address] [facility] [place] [address] Care Team Providers Care Windscreen Fitter Name Role Phone Walker EVANS, Castro Primary Care Provider UnavailKenneth Cason Unavailable [phone] Allergies Allergen (clinical drug ingredient) Drug/Non Drug Allergy documented on EMR Reaction Allergy Type Onset Date Status amoxicillin Amoxicillin sever diarrhea Drug Allergy Active Reason For Referral No Information Medications Medication SIG (Take, Route, Frequency, Duration) Notes Start Date End Date Status Warfarin Sodium Not- Taking Valsartan Not-Taking Carvedilol Active Night Splint AFO - L1930 as directed 05/30/2015 Active Calcium 600-200 MG-UNIT 1 tablet with fo od Orally Twice a day for 30 day(s) Active Zetia Active Aspir-81 Active Doxycycline Hyclate Active Lisinopril 20 MG 1 tablet Orally Once a day for 30 day(s) Not-Taking Clopidogrel Bisulfate Active Digoxin 125 MCG TAKE 1 TAB BY MOUTH DAILY Oral for 90 Not-Taking Entresto 49-51 MG 1 tablet Orally Twic e a day Active Captopril Not-Taking Furosemide Active Cephalexin Not-Takin g Klor-Con M20 Active Enoxaparin Sodium No t-Taking Isosorbide Mononitrate ER Active levoFLOXacin Not-Jose Roberto ing Rosuvastatin Calcium Active Spironolactone-HCTZ 25-25 MG 1 tablet Orally Once a day Active Eliquis Active Latanoprost Active oxyCODONE-Acetaminophen Not-Taking Immunizations Vaccine Route Administration Date Status Comme nts COVID-19 Pfizer BioNTech Vaccine Unknown 05/05/2020 Administered COVID-19 Pfizer BioNTech Vaccine Unknown 06/30/2020 Administered 1st 06/09/2020 Social History Tobacco Use: Social History Observation [...] Are you an other tobacco user? No Problems Problem Type SNOMED Code ICD Code Onset Dates Problem Status W/U Status Risk Notes Problem Localized, primary osteoarthritis of the ankle and/or foot (027972709) Primary osteoarthritis, left ankle and foot (M19.072) Active confirmed Problem Ataxic gait (17101856) Ataxic gait (R26.0) Active confirmed Problem Bilateral atherosclerosis of arteries of lower limbs (disorder) (54002146513605233 ) Unspecified atherosclerosis of [place] arteries of extremities, bilateral legs (I70.203) Active confirmed Problem Non-pressure chronic ulcer of other part of left foot limited to breakdown of skin (L97.521) Active confirmed Problem Acquired hammer toe of left foot (1084470944275472) Other hammer toe(s) (acquired), left foot (M20.42) Active confirmed Problem Acquired hammer toe of left foot (1586873793859745) Other hammer toe(s) (acquired), left foot (M20.42) Active confirmed Vital Signs Height 5 ft 7 in in 11/22/2023 Weight 200 lbs 11/22/2023 BMI 31.32 kg/m2 11/22/2023 Encounters Encounter Location Date Provider Diagnosis [facility] [address] 09/20/2023 Kenneth Verde 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 ; Pain in left toe(s) M79.675 ; Primary osteoarthritis, left ankle and foot M19.072 ; Unspecified atherosclerosis of [place] arteries of extremities, bilateral legs I70.203 and Other hammer toe(s) (acquired), left foot M20.42 [facility] [address] 10/25/2023 Kenneth Verde 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 ; Pain in left toe(s) M79.675 ; Primary osteoarthritis, left ankle and foot M19.072 ; Unspecified atherosclerosis of [place] arteries of extremities, bilateral legs I70.203 and Other hammer toe(s) (acquired), left foot M20.42 [facility] [address] [address] 11/22/2023 Kenneth Verde 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 ; Pain in left toe(s) M79.675 ; Primary osteoarthritis, left ankle and foot M19.072 ; Unspecified atherosclerosis of [place] arteries of extremities, bilateral legs I70.203 and Other hammer toe(s) (acquired), left foot M20.42 [facility] [address] [address] 06/27/2024 Kenneth Verde Assessments Encounter Date Diagnosis (ICD Code) Assessment Notes Treatment Notes Treatment Clinical Notes Section Notes 09/20/2023 Pain in left toe(s) (ICD-10 - M79.675) 09/20/2023 Non-pressure chronic ulcer of other part of left foot limited to breakdown of skin (ICD-10 - L97.521) 10/25/2023 Pain in left toe(s) (ICD-10 - M79.675) 10/25/2023 Non-pressure chronic ulcer of other part of left foot limited to breakdown of skin (ICD-10 - L97.521) 11/22/2023 Pain in left toe(s) (ICD-10 - M79.675) 11/22/2023 Non-pressure chronic ulcer of other part of left foot limited to breakdown of skin (ICD-10 - L97.521) 11/22/2023 Primary osteoarthritis, left ankle and foot (ICD-10 - M19.072) 10/25/2023 Primary osteoarthritis, left ankle and foot (ICD-10 - M19.072) 09/20/2023 Primary osteoarthritis, left ankle and foot (ICD-10 - M19.072) 09/20/2023 Unspecified atherosclerosis of [place] arteries of extremities, bilateral legs (ICD-10 - I70.203) 10/25/2023 Unspecified atherosclerosis of [place] arteries of extremities, bilateral legs (ICD-10 - I70.203) 11/22/2023 Unspecified atherosclerosis of [place] arteries of extremities, bilateral legs (ICD-10 - I70.203) 11/22/2023 Other hammer toe(s) (acquired), left foot (ICD-10 - M20.42) 10/25/2023 Other hammer toe(s) (acquired), left foot (ICD-10 - M20.42) 09/20/2023 Other hammer toe(s) (acquired), left foot (ICD-10 - M20.42) Plan Of Treatment Pending Test Test Name Order Date X ray : Foot, left 2V 05/30/2015 X ray : Foot, right 2V 05/30/2015 X ray : Foot, left 3V 02/12/2020 X ray : Foot, left 3V 04/05/2023 X ray : Foot, left 3V 09/20/2023 07508-ROSWYTC NAIL, 6 OR MORE 11/12/2016 23057-CNTBPGV NAIL, 6 OR MORE 08/15/2015 87073-QWZXANF NAIL, 6 OR MORE 11/07/2015 87940-IQERSWI NAIL, 6 OR MORE 04/06/2016 99041-INDSGCM NAIL, 6 OR MORE 05/30/2015 56939-STQYRYV NAIL, 6 OR MORE 04/29/2015 10453-Itmtqtej Plate 04/29/2015 65133-Vjrvzsuh Plate 04/06/2016 87877-Cfuulzem Plate 11/12/2016 09500- Debride <25 sq cm 04/29/2015 92997- Debride <25 sq cm 05/30/2015 16628- Debride <25 sq cm 2015 91002-ADDLSSK SKIN/TISSUE 01/25/2023 11424-PMVDVHV SKIN/TISSUE 05/15/2019 48023-UKPP SKIN LESIONS, 2 TO 4 07/21/19 23 52220-Wjbr. Subungual Hematoma 4 49045-CUKBNDUX OF HEMATOMA/FLUID 022 02218,S8034-HDI TENDON SHEATH/LIGAMENT 0 2015 Insurance Providers Payer Name Payer Address Payer Phone Subscriber Number Group Number Insured Name Patient Relationship to Insured Coverage Start Date Coverage End Date [employer] Preferred [address] [place] [address] [id number] Madie Hernandez Self - patient is the insured Medical (General) History Medical History History ICD Code Arrhythmia, heart Coronary artery disease- 5 stents Deep vein thrombosis left leg Glaucoma Hypertension Myocardial infarction osteoarthritis - knee Peripheral venous disease Pacemaker Surgical History Surgery Date(Month/Year) quad by pass 5 stents belly button hernia breast surgery 2nd toe left foot surgery hysterectomy left knee replacement 05/2020 Stent 07/2021 Replaced pacemaker 09/2022 face surgery 04/13/23 Hospitalization History Reason Date(Month/Year) [facility] - Quadruple Bypass 10[place]07/14 [facility] [place] due to DVT 01/10/15 [facility] [place] Foot Cellulitis- Picc line inserte d 03/04/15
--- OUTSIDE RECORDS SUMMARY | 2024-07-03 17:01 | XMS_ITS | Encounter Summary ---
Author Organization [facility] Address [address] [place] [address] Care Team Providers Care Field Artillery Radar Operator Name Role Phone Castro Cardoso MD Primary Care Provider [phone] Reason for Visit * Reason Comments Follow-up Left toe pain Encounter Details Date Type Department Care Team (Late st Contact Info) Description 06/28/2024 2:45 PM EDT Office Visit Orthopedic Surgery - [place] [address] [phone] Dread Verde, DPM [address] [phone] Cellulitis of left foot (Primary Dx); Ulcer of toe of left foot, with fat layer exposed (CMS/HCC); Ingrowing nail; Hammer toe of left foot Social History Tobacco Use Types Packs/Day Years [...] AM EST documented as of this encounter Last Filed Vital Signs Vital Sign Reading Time Taken Comments Blood Pressure - - Pulse - - Temperature - - Respiratory Rate - - Oxygen Saturation - - Inhaled Oxygen Concentration - - Weight 90.3 kg (199 lb) 06/28/2024 2:33 PM EDT Height 165.1 cm (5' 5 ) 06/28/2024 2:33 PM EDT Body Mass Index 33.12 06/28/2024 2:33 PM EDT documented in this encounter Ordered Prescriptions Prescription Sig Dispense Quantity Refills Last Filled Start Date End Date cephalexin (KEFLEX) 500 mg capsule Take 1 capsule (500 mg total) by mouth 3 (three) times a day for 10 days. 30 each 06/28/2024 documented in this encounter Progress Notes * Dread Verde DPM - 06/28/2024 2:45 PM EDT Leave bandaging clean dry intact until tomorrow Take bandaging off in shower Perform warm water soaks either in the shower or out of the shower for 10 to 15 minutes Apply ointment and bandage to be changed daily Follow-up in 2 weeks * Dread Verde DPM - 06/28/2024 2:45 PM EDT Last PCP visit:Referring MD: Castro Cardoso MD 01/19/2024 S Patient presents today for evaluation of her feet she has chronic recurring ulceration of her left great toe was referred to our office for surgical consultation has been seen for worsening chronic ulceration of the left great toe as well as a long painful thickened fungal nails and skin she was last seen by [facility] in 10/25/2023 has a long and painful thickened fungal nails andskin chronically painful and achy Patient presents today for an urgent appointment she states that she has had redness swelling of her left great toe denies nausea and fevers or chills states the toe got red and swollen last to 3 days and call for an urgent appointment to be seen today ROS: GENERAL: Pt denies nausea, fever, vomiting, [...] Patient Active Problem List Diagnosis Atrial fibrillation ([facility]) CAD (coronary artery disease) Calculus of gallbladder without cholecystitis without obstruction Chest pain Diverticulitis large intestine w/o perforation or abscess w/o bleeding Epidermal inclusion cyst HFrEF (heart failure with reduced ejection fraction) ([facility]) History of coronary artery bypass surgery HLD (hyperlipidemia) HTN (hypertension) Pacemaker Seborrheic keratosis SSS (sick sinus syndrome) ([facility]) Type 2 diabetes mellitus with complication, without long-term current use of insulin ([facility]) Ventral hernia without obstruction or gangrene Hammer toe of left foot Ulcer of toe of left foot, with fat layer exposed ([facility]) SOCIAL HISTORY: Social History Tobacco Use Smoking status: Former Current packs/day: 0.00 Average packs/day: 0.5 packs/day for 36.0 years (18.0 ttl pk-yrs) Types: Cigarettes Start date: 04/04/1950 Quit date: 04/04/1988 Years since quittin.2 Smokeless tobacco: Never Substance Use Topics Alcohol use: Not Currently ACTIVE MEDICATIONS: Outpatient Medications Marked as Taking for the 06/28/24 encounter (Office Visit) with Dread Moya DPM Medication Sig Dispense Refill apixaban (Eliquis) 5 mg tablet Take 1 tablet (5 mg total) by mouth 2 (two) times a day. 180 tablet 2 aspirin 81 mg EC tablet Take 2 tablets (162 mg total) by mouth at bedtime. calcium carbonate 1,500 mg (600 mg elemental calcium) tablet Take 1 tablet (1,500 mg total) by mouth 1 (one) time each day. carvediloL (COREG) 6.25 mg tablet Take 2 tablets (12.5 mg total) by mouth 2 (two) times a day with meals. 180 tablet 1 dapagliflozin propanediol (FARXIGA) 10 mg tablet Take 1 tablet (10 mg total) by mouth 1 (one) time each day. 90 tablet 1 ezetimibe (ZETIA) 10 mg tablet Take 1 tablet (10 mg total) by mouth 1 (one) time each day. furosemide (LASIX) 20 mg tablet Take 1 tablet (20 mg total) by mouth 1 (one) time each day. 90 tablet 1 isosorbide mononitrate (IMDUR) 30 mg 24 hr [...] total) by mouth 1 (one) time eachday. ALLERGIES: Allergies Allergen Reactions Amoxicillin Diarrhea Azqfdii-Psb-Whs Reductase Inhibitors Other reaction(s): Myalgia PHYSICAL EXAM: Visit Vitals Ht 1.651 m (65 ) Wt 90.3 kg (199 lb) BMI 33.12 kg/m?? OB Status Postmenopausal Smoking Status Former [...] plantar flexion WNL. No muscle atrophy. DERMATOLOGICAL:. Ingrown nail plate left great toe cellulitis noted left great toe to the MPJ ULCER: LOCATION left hallux, SIZE, 3 mm x 3 mm x 3 mm, BASE, fibro-granular, RIM, hyperkeratotic, UNDERMINING, mild, TRACKING, Sub Q with Fat layer exposed,NECROTIC TISSUE, loosely-adherent yellow slough, DRAINAGE, serous, moderate, MALODOR, absent, CALOR, absent, ERYTHEMA, absent. BIOMECHANICS: Ankle ROM WNL, STJ ROM crepitation , MTJ ROM crepitation , 1st MPJ ROM crepitation .Rigidity left hallux and hammertoe contracture deformity left great toe with arthritis of both feetcrepitation of all joints IMAGING: IMPRESSION: 1. Cellulitis of left foot 2. Ulcer of toe of left foot, with fat layer exposed (CMS/HCC) 3. Ingrowing nail PLAN: New x-rays of the left foot 3 views Ingrown nail discussed to recommend nail removal Keflex prescribed Patient to follow-up in 10 days currently ask surgery scheduled for 07/13/2024 Follow-up in 10 days Open wound Open wound selective debridement of devitalized soft tissue, fibrin, epidermis, dermis, thru skin and subcutaneous tissue, first 20 sq cm or less, using sterile sharp dissection #15 scalpel blade. Pt. deferred anesthesia. . Devitalized tissue was not sent to pathology. Procedure 10365: Avulsion single toenail - informed consent was obtained from the patient. avulsionwith incision and drainage was performed on the toe. Sterile prep was performed. After the site wasprepared with Ethyl Chloride spray, 6 ml of 1% Lidocaine was injected without difficulty. Complete nail avulsion was then performed with a [place] elevator. DSD applied with topical antibiotic ointment. The patient was instructed on signs and symptoms of infection and what to look for,and was told tocall and come in immediately should any problems and/or questions arise. Discussed partial nail avulsion with matrixectomy of the affected hallux if symptoms persist Patient is now failed ulcerative care for [...] treatment options were discussed. Treatment options for Hammertoe correction left hallux with removal of distal phalanx hammertoe correction left hallux correction were discussed, non- operative treatment would involve tapping, strapping, adjustments in shoe gear, orthotics insoles, rest, bracing and edema control. There is potential for the deformities to stabilize without surgery yet there may still be a need for delayed surgeryand distructive procedures. There is potential for non-union [...] left hallux with removal of distal phalanx surgery WB status: WB x 4 weeks in a below the knee boot. Pain medication: Tylenol Oxycodone Dread Verde DPM documented in this encounter Plan of Treatment Upcoming Encounters Date Type Department Care Team (Late st Contact Info) Description 07/04/2024 10:00 AM EDT Consult Internal Medicine - [place] 175 [facility] [address] [place] [address] Castro Cardoso MD [address] [address] 07/10/2024 8:00 AM EDT Consult Orthopedic Surgery - [place] [address] [phone] Dread Verde DPM [address] [address] 07/13/2024 9:00 AM EDT Hospital Encounter [facility] [place] [address] [place] [phone] Dread Verde DPM [address] [address] 07/13/2024 9:00 AM EDT - 07/13/2024 10:[address] [facility] [place] [address] [place] [phone] Dread Verde DPM [address] [address] REPAIR GREAT HAMMER TOE [[id number] (CPT??)] 07/24/2024 10:30 AM EDT Office Visit Orthopedic Surgery [facility] [address] [phone] Aide Nguyen PA [address] [address] 07/26/2024 9:45 AM EDT Office Visit Orthopedic Surgery - [place] 250 [address] [facility] [address] [place] [phone] Dread Verde DPM 175 [facility] [address] [place] [address] 07/31/2024 10:10 AM EDT Office Visit [facility] [address] [place] [address] Jennifer Segundo NP [address] [facility] [address] [place] [address] 10/23/2024 2:00 PM EDT Ancillary Procedure [facility] - [facility] [address] [facility] [address] [place] [phone] Scheduled Procedures Name Priority Associated Diagnoses Date/Ti me REPAIR HAMMER TOE Hammer toe of left foot Ulcer of toe of left foot, with fat layer exposed (CMS/HCC) 07/13/2024 9:00 AM EDT documented as of this encounter Visit Diagnoses Diagnosis Hammer toe of left foot Ulcer of toe of left foot, with fat layer exposed (CMS/HCC) Cellulitis of left foot- Primary Ulcer of toe of left foot, with fat layer exposed (CMS/HCC) Ingrowing nail Hammer toe of left foot Hammer toe of left foot Ulcer of toe of left foot, with fat layer exposed (CMS/HCC) Encounter for adjustment or management of cardiac device documented in this encounter Care Teams Field Artillery Radar Operator Relationship Specialty Start Date End Date Castro Cardoso MD 175 [facility] [address] [place] [address] PCP - General Internal Medicine 03/08/13 documented as of this encounter
--- OUTSIDE RECORDS SUMMARY | 2024-07-03 17:01 | XMS_ITS | Clinical Summary ---
Author Organization [facility] Address [address] [place] [address] Care Team Providers Care Staff Assistant Name Role Phone Castro Cardoso MD Primary [...] age to complete this topic Care Teams Staff Assistant Relationship Specialty Start Date End Date Castro Cardoso MD PCP - General Internal Medicine 05/03/23
--- OUTSIDE RECORDS SUMMARY | 2024-07-03 17:01 | XMS_ITS ---
Author Organization [facility] Address [address] [place] [address] Care Team Providers Care Stable Hand Name Role Phone Castro Cardoso MD Primary Care Provider UnavailKenneth Cason [phone] REASON FOR VISIT Cx 07/13/24 Encounters Encounter Location Date [facility] [address] [place] [phone] 06/27/2024 Kenneth Verde Plan Of Treatment No Information Progress Notes * Madie HERNANDEZDOB:1935 (89 yo F)Acc No.[id number]:06/27/2024 Patient:?Madie HERNANDEZ :1935???Age:89 Y???Sex:Female Address:[address] [place] [address], [address] * true * Date:? Generated for Duane hui/Ivette/eTransmitting on:?07/03/2024 05:00 PM EDT
== END 2024-07-03 14:53 | disposition home or self-care (01) ==
LOC: HO.HVS 14:13
PROVIDERS: PCP Internal Medicine; Visit Provider Surgery Vascular Surgery
DX: I83.11 Varicose veins of right lower extremity with inflammation (principal); I73.9 Peripheral vascular disease, unspecified
CPT/HCPCS: 99214; G2211

== ENCOUNTER → 2024-07-03 14:13 | Outpatient (BNVA) | payer MEDICARE, SELFPAY | PROVIDERS: PCP Internal Medicine; Visit Provider Surgery Vascular Surgery | DX: I83.11 Varicose veins of right lower extremity with inflammation (principal); I73.9 Peripheral vascular disease, unspecified | CPT/HCPCS: 99212 ==

== ENCOUNTER 2024-08-03 10:27 | Outpatient (AMB) | payer MEDICARE, SELFPAY ==
--- NOTE | 2024-08-03 10:27 | A.OFFVIS_ITS ---
Intake Visit Reasons: Right GSV Venaseal Accompanied by: Self / Same As Patient Allergies Xfctdte-ISK-NyA Reductase Inhibitor [PTHWPGN-JPP-YTI REDUCTASE INHIBITOR] Adverse Reaction (Severe, Verified 08/03/24 10:28) BODY ACHES amoxicillin Adverse Reaction (Mild, Verified 08/03/24 10:28) Diarrhea PFSH Medical History Claudication Plantar fasciitis Hypercholesteremia HTN (hypertension) Surgical History Stenosis of left femoral artery History of cardiac defibrillator placement Total knee replacement status Hx of CABG Social History Household Members: Spouse Housing: House Alcohol intake: current Alcohol intake frequency: holidays/special occasions only Patient Tobacco Use Status: Never used Tobacco Office Procedures Vascular Office Procedure Details Details: Diagnosis: Right Leg varicose veins with inflammation Procedure: Endovenous Ablation of the right Great Saphenous Vein with VenaSeal Closure System Anesthesia: Local infiltration 5 cc, Ship Self [employer] System Mk1 Operator: JOIE Rodriguez Estimated Blood Loss: min Specimen: none Duplex ultrasound was used to map out the insufficient saphenous vein, and access was determined and marked on the overlying skin. The depth and diameter of the vein(s) to be treated was documented. The patient was placed supine on the procedure table and the leg was prepped and draped using sterile technique. Ultasound guidance was again used to localize the access site. 1% lidocaine was injected as a local anesthetic in the subcutaneous tissues at the target location in the GSV in the lower leg. Using ultrasound guidance, access was gained at this location with the 19 gauge thin walled access needle and followed by introduction of a short guidewire, location confirmed with ultrasound. A small, 3 mm incision was made at the access site to allow for introduction and placement of the 7 Fr x7cm introducer/dilator. The dilator and guidewire were removed. The 0.035 guidewire from the VenaSeal kit was then introduced and positioned at the saphenofemoral junction using ultrasound guidance. The 80 cm 7 Fr introducer sheath/dilator was positioned at the knee on up to the mid great saphenous vein as it had been previously treated at an outside institution and appeared to be ablated. There was a very prominent great saphenous at the knee region.. The guidewire and dilator were removed, and the remaining sheath was flushed with sterile saline, with the syringe remaining in place prior to the next steps. The cyanoacrylate adhesive was precisely primed into the 5 F delivery catheter and this catheter/syringe combination was attached within the dispenser gun. This assembly was introduced through the 7F sheath and positioned just distal to the previous occlusion under ultrasound guidance. The steps from the IFU were followed for dispensing amounts, locations and compression times, , and 1 aliquot every 3 cm distally with 30 sec of compression along the course of the vessel. Following the last injection and compression sequence, the catheter and introducer sheath were pulled out from the access site. Hemostasis was achieved with manual compression and an adhesive bandage was applied to the incision. Ultrasound confirmed complete coaptation and closure of the treated segments of the GSV, and the absence of any DVT at the saphenofemoral junction. Treatment time was approximately 2 minutes and the vein length treated was 15 cm. The drapes were removed and the patient cleaned and prepared for discharge. Post op ultrasound check is scheduled for 48-72 hours and the patient was given wr itten post-op instructions. 28985 - Endoven Ther Chem Adhes 1st All charges added?: Procedure code (CPT) selection complete Assessment & Plan Assessment & Plan (1) Varicose veins of right lower extremity with inflammation: Comment: 08/03/2024 - right great saphenous vein Cyanoacralate ablation Code(s): I83.11 - Varicose veins of right lower extremity with inflammation Category: Medical Plan: See op note Coding Level of Care Code Procedure Only Diagnoses Varicose veins of right lower extremity with inflammation I83.11 CPT Codes Details - Vascular 3: 29882 - Endoven Ther Chem Adhes 1st ([id number])
--- OUTSIDE RECORDS SUMMARY | 2024-08-03 11:30 | XMS_ITS ---
Author Organization [facility] Address [address] [place] [address] Care Team Providers Care Facility Practice Specialist Name Role Phone Castro Cardoso MD Primary Care Provider UnavailKenneth Cason [phone] REASON FOR VISIT Cx 07/13/24 Encounters Encounter Location Date [facility] [address] [address] 06/27/2024 Kenneth Verde Plan Of Treatment No Information Progress Notes * Madie HERNANDEZDOB:1935 (89 yo F)Acc No.[id number]:06/27/2024 Patient:?Madie HERNANDEZ :1935???Age:89 Y???Sex:Female Address:[address] [place] [address], [address] * true * Date:? Generated for Lubai ez/Ivette/eTransmitting on:?08/03/2024 11:30 AM EDT
--- OUTSIDE RECORDS SUMMARY | 2024-08-03 11:30 | XMS_ITS ---
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 ; Pain in left toe(s) M79.675 ; Primary osteoarthritis, left ankle and foot M19.072 ; 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, bilateral legs I70.203 and [...] (ICD-10 - M19.072) 11/22/2023 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, bilateral legs (ICD-10 - I70.203) 11/22/2023 Other hammer toe(s) (acquired), left foot (ICD-10 - M20.42) Plan Of Treatment Next Appt Details Follow Up: prn, Reason: Progress Notes * Madie HERNANDEZDOB:1935 (88 yo F)Acc No.[id number]:11/22/2023 Progress Notes Patient:?Eliseomee Madie Kathy Provider:?Kenneth Verde DPM :1935???Age:88 Y???Sex:Female D ate:11/22/2023 Address:[address] , [id number] Pcp:Castro Cardoso MD Subjective: * Chief Complaints: [...] ankle and foot - M19.072?4.?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, bilateral legs - I70.203?5.?Other [...] DPM Date:? 024 Generated for Duane hui/Ivette/Eliud on:?08/03/2024 11:30 AM EDT History and Physical Notes * HPI [...]
--- OUTSIDE RECORDS SUMMARY | 2024-08-03 11:30 | XMS_ITS | Patient Health Record ---
Author Organization [facility] Address [address] [place] [address] Care Team Providers Care Restaurant Assistant Name Role Phone Walker EVANS, Castro Primary Care Provider Unavailab Kenneth Rosales Unavailable [phone] Mehreen Grossman Unavailable [phone] Allergies Allergen (clinical drug ingredient) Drug/Non Drug [...] primary osteoarthritis of the ankle and/or foot (617562612) Primary osteoarthritis, left ankle and foot (M19.072) Active confirmed Problem Ataxic gait (00716994) Ataxic gait (R26.0) Active confirmed Problem Bilateral atherosclerosis of arteries of lower limbs (disorder) (20820711575183911 ) Unspecified atherosclerosis of [place] arteries of extremities, bilateral legs (I70.203) Active confirmed Problem Non-pressure chronic ulcer of other part of left foot limited to breakdown of skin (L97.521) Active confirmed Problem Acquired hammer toe of left foot (4876963212862223) Other hammer toe(s) (acquired), left foot (M20.42) Active confirmed Problem Acquired hammer toe of left foot (9060234397821090) Other hammer toe(s) (acquired), left foot (M20.42) Active confirmed Vital Signs Height 5 ft 7 in in 11/22/2023 Weight 200 lbs 11/22/2023 BMI 31.32 kg/m2 11/22/2023 Encounters Encounter Location Date Provider Diagnosis [facility] [address] 09/20/2023 Kenneth Verde 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 ; Pain in left toe(s) M79.675 ; Primary osteoarthritis, left ankle and foot M19.072 ; Unspecified atherosclerosis of [place] arteries of extremities, bilateral legs I70.203 and Other hammer toe(s) (acquired), left foot M20.[address] [facility] [address] 10/25/2023 Kenneth Verde 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 ; Pain in left toe(s) M79.675 ; Primary osteoarthritis, left ankle and foot M19.072 ; Unspecified atherosclerosis of [place] arteries of extremities, bilateral legs I70.203 and Other hammer toe(s) (acquired), left foot M20.42 [facility] [address] [address] 11/22/2023 Kenneth Verde 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 ; Pain in left toe(s) M79.675 ; Primary osteoarthritis, left ankle and foot M19.072 ; Unspecified atherosclerosis of [place] arteries of extremities, bilateral legs I70.203 and Other hammer toe(s) (acquired), left foot M20.42 [place] [address] [address] 06/27/2024 Kenneth Verde Assessments Encounter Date Diagnosis [...] (ICD-10 - M19.072) 09/20/2023 Unspecified atherosclerosis of [place] arteries of extremities, bilateral legs (ICD-10 - I70.203) 10/25/2023 Unspecified atherosclerosis of [place] arteries of extremities, bilateral legs (ICD-10 - I70.203) 11/22/2023 Unspecified atherosclerosis of [place] arteries of extremities, bilateral legs (ICD-10 - [...] X ray : Foot, left 3V 09/20/2023 93248-NYBQNFW NAIL, 6 OR MORE 11/12/2016 46288-YXRLAFT NAIL, 6 OR MORE 08/15/2015 99712-VHTTBVM NAIL, 6 OR MORE 11/07/2015 27862-HSDFFPK NAIL, 6 OR MORE 04/06/2016 29518-QFHAGHV NAIL, 6 OR MORE 05/30/2015 38168-IMOWVOL NAIL, 6 OR MORE 04/29/2015 51167-Ycmywuvu Plate 04/29/2015 22380-Zxxqukeq Plate 04/06/2016 85428-Wyuxmhtu Plate 11/12/2016 25552- Debride <25 sq cm 04/29/2015 05770- Debride <25 sq cm 05/30/2015 99637- Debride <25 sq cm 2015 11180-PGXNPMC SKIN/TISSUE 01/25/2023 99196-YUROWOB SKIN/TISSUE 05/15/2019 47740-NAMQ SKIN LESIONS, 2 TO 4 07/21/19 82999-Pmcp. Subungual Hematoma 4 14427-PJMFJQMD OF HEMATOMA/FLUID 022 81473,D7168-GHX TENDON SHEATH/LIGAMENT 0 2015 Insurance Providers Payer Name Payer Address Payer Phone Subscriber Number Group Number Insured Name Patient Relationship to Insured Coverage Start Date Coverage End Date [employer] Preferred [address] [place] [address] [id number] Madie Hernandez Self - patient is the [...] Reason Date(Month/Year) [facility] - Quadruple Bypass 10/07/14 [facility] [place] - Stent left leg due to DVT 01/10/15 [facility] [place] - Foot Cellulitis- Picc line inserte d 03/04/15
--- OUTSIDE RECORDS SUMMARY | 2024-08-03 11:30 | XMS_ITS ---
Author Organization [facility] Address [address] [place] [address] Care Team Providers Care Retail Coverage Merchandiser Lead Name Role Phone Castro Cardoso MD Primary Care Provider Unavailab Kenneth Rosales Unavailable [phone] Mehreen Grossman Unavailable [phone] REASON FOR VISIT Transfer to Different Provider Encounters Encounter Location Date [facility] [address] [address] 07/13/2024 Mehreen Grossman Plan Of Treatment No Information Progress Notes * Madie HERNANDEZDOB:1935 (89 yo F)Acc No.[id number]:07/13/2024 Progress Note Patient:?BOBBYElsieJOHANNY Madie Chavez Provider:?Mehreen Grossman DPM :1935???Age:89 Y???Sex:Female D ate:07/13/2024 Address:[address] [place] [id number] Pcp:Castro Cardoso MD Subjective: * Chief Complaints: * ???1. Transfer to Different Provider. * Medical History:? Objective: * Vitals:? Assessment: Plan: * Treatment: * Images: * The named appointment provid er may or may not be the originator of this progress note, and it is not deemed complete until electronically signed by the appointment provider. Sign off status: Pending * Provider:?Mehreen Grossman DPM Date:?0 07/13/2024 Generated for Duane hui/Ivette/Eliud on:?08/03/2024 11:30 AM EDT
--- OUTSIDE RECORDS SUMMARY | 2024-08-03 11:30 | XMS_ITS | Clinical Summary ---
Author Organization [facility] Address [address] [place] [address] Phone Care Team Providers Care Cert Occupational Therapy Asst Name Role Phone Castro Cardoso MD Primary Care Provider [phone] Allergies Active Allergy Reactions Criticality Noted Date Comments Amoxicillin Diarrhea High 07/20/2021 Gcikpgc-Qeq-Lki Reductase Inhibitors Pain High 09/01/2022 Other reaction(s): Myalgia Medications apixaban (Eliquis) 5 mg tablet Take 1 tablet (5 mg total) by mouth 2 (two) times a day. 180 tablet 2 02/07/20 24 Active aspirin 81 mg EC tablet Take 2 tablets (162 mg total) by mouth at bedtime. Active calcium carbonate 1,500 mg (600 mg elemental calcium) tablet Take 1 tablet (1,500 mg total) by mouth 1 (one) time each day. Active ezetimibe (ZETIA) 10 mg tablet Take 1 tablet (10 mg total) by mouth 1 (one) time each day. 01/24/20 24 Active magnesium oxide (MAG-OX) 400 mg (241.3 elemental magnesium) tablet Take 400 mg by mouth daily. Active niacin (SLO-NIACIN) 500 mg CR tablet Take 2 tablets (1,000 mg total) by mouth 1 (one) time each day. Active sacubitriL-vals jordyn (Entresto) 49-51 mg per tablet Take 1 tablet by mouth 2 (two) times a day. Active lidocaine (LIDODERM) 5 % patch Apply 1 patch topically 1 (one) time each day. Remove & discard patch within 12 hours or as directed by MD. Active dapagliflozin propanediol (FARXIGA) 10 mg tablet Take 1 tablet (10 mg total) by mouth 1 (one) time each day. 90 tablet 1 04/18/19 25 Active rosuvastatin (CRESTOR) 10 mg tablet Take 1 tablet (10 mg total) by mouth 1 (one) time each day. 90 tablet 1 04/18/19 25 Active furosemide (LASIX) 20 mg tablet Take 1 tablet (20 mg total) by mouth 1 (one) time each day. 90 tablet 1 06/07/19 25 Active Additional Information Patient taking differently: 10 mgoral Daily, Reported on 07/31/2024 silver sulfADIAZINE (Silvadene) 1 % cream Apply topically 1 (one) time each day. 50 g 06/30/19 25 2025 Active oxyCODONE (ROXICODONE) 5 mg immediate release tablet Take 1 tablet (5 mg total) by mouth every 4 (four) hours if needed for severe pain. Max Daily Amount: 30 mg 35 tablet 07/14/19 25 Active spironolactone (ALDACTONE) 25 mg tablet Take 1 tablet (25 mg total) by mouth 1 (one) time each day. Active carvediloL (COREG) 6.25 mg tablet Take 1 tablet (6.25 mg total) by mouth 2 (two) times a day with meals. 180 tablet 1 08/01/19 25 Active isosorbide mononitrate (IMDUR) 30 mg 24 hr tablet TAKE 1 TABLET BY MOUTH DAILY 90 tablet 3 08/03/19 25 Active isosorbide mononitrate (IMDUR) 30 mg 24 hr tablet Take 1 tablet (30 mg total) by mouth 1 (one) time each day. 09/05/19 24 2024 Discontinued spironolactone (ALDACTONE) 25 mg tablet Take 0.5 tablets (12.5 mg total) by mouth 1 (one) time each day. 2024 Discontinued carvediloL (COREG) 6.25 mg tablet Take 2 tablets (12.5 mg total) by mouth 2 (two) times a day with meals. 180 tablet 1 06/07/19 25 2024 Discontinued cephalexin (KEFLEX) 500 mg capsule Take 1 capsule (500 mg total) by mouth 3 (three) times a day for 10 days. 30 each 06/29/19 25 2024 Discontinued(S top Taking at Discharge) cephalexin (KEFLEX) 500 mg capsule Take 1 capsule (500 mg total) by mouth 3 (three) times a day for 10 days. 30 each 06/30/19 25 2024 Discontinued(S top Taking at Discharge) acetaminophen (TYLENOL 8 HOUR) 650 mg 8 hr tablet Take 1 tablet (650 mg total) by mouth every 8 (eight) hours if needed for mild pain for up to 10 days. Do not crush, chew, or split. 30 tablet 07/14/19 25 2024 cephalexin (KEFLEX) 500 mg capsule Take 1 capsule (500 mg total) by mouth 3 (three) times a day for 10 days. 30 each 07/14/19 25 2024 carvediloL (COREG) 6.25 mg tablet Take 3.125 mg by mouth 2 (two) times a day with meals. 2024 Discontinued(R eorder) carvediloL (COREG) 3.125 mg tablet Take 1 tablet (3.125 mg total) by mouth 2 (two) times a day with meals. 180 tablet 1 08/01/19 25 2024 Discontinued(R eorder) Active Problems Problem Noted Date Diagnosed Date Hammer toe of left foot 04/16/2024 Ulcer of toe of left foot, w ith fat layer exposed ([facility] V24, [facility] V28) 04/16/2024 Atrial fibrillation ([facility] V24, [facility] V28) 1 04/16/2023 Assessment & Plan (07/31/2024 10:59 AM EDT): Patient continues on anticoagulation with Eliquis. Appropriately dosed on 5 mg twice daily given her weight and renal function. Assessment & Plan (06/01/2024 11:50 AM EST): Continue Eliquis for CVA prophylaxis. No recent recurrences. CAD (coronary artery disease) 02/15/2024 Assessment & Plan (07/31/2024 10:59 AM EDT): Patient has history of coronary artery disease [...] and following up with routine medical care. Assessment & Plan (06/01/2024 11:50 AM EST): [...] artery bypass surgery 2023 HLD (hyperlipidemia) 02/15/2024 Assessment & Plan (07/31/2024 10:59 AM EDT): Patient's last LDL cholesterol was 86. This is above goal. We recently increased the rosuvastatin to 10 mg once a day and we will plan to repeat a lipid panel in 12 weeks. HTN (hypertension) 02/15/2024 Assessment & Plan (07/31/2024 10:59 AM EDT): Blood pressure today 102/48. Continue with medical therapies as prescribed. Epidermal inclusion cyst 04/14/2023 HFrEF (heart failure with re duced ejection fraction) ([facility] V24, [facility] V28) 03/07/2023 Assessment & Plan (07/31/2024 10:59 AM EDT): Patient has history of HFrEF with an EF of 40 to 45%. She her last noninvasive cardiac testing was with a nuclear stress test completed 03/2023 at which point there was no obvious ischemia. She recently had a syncopal event as outlined and detailed above. Suspected to be vasovagal in nature. Most of her medical therapies were done at her last visit. She denies any lightheadedness, dizziness or repeat syncope. Will continue on her present dose of carvedilol, furosemide, Farxiga, Entresto and spironolactone. She denies any clinical symptoms of heart failure and she appears euvolemic on physical examination. I've asked the patient to call if they develop worsening symptoms of heart failure such as increased shortness of breath, new or worsening cough, increased swelling in the legs or ankles, or weight gain of more than 2 pounds in one day or 4 pounds in one week. Assessment & Plan (06/01/2024 11:50 AM EST): Would resume GDMT per outpatient schedule. Hold Imdur. SSS (sick sinus syndrome) ([facility] V24, [facility] V28) 07/16/2021 Assessment & Plan (07/31/2024 10:59 AM EDT): Patient has history of sick sinus syndrome status post pacemaker. Generator change 09/2022 with an upgrade to a biventricular device. Will continue with remote monitoring and routine visits to our device clinic. Calculus of gallbladder with out cholecystitis without obstruction 05/12/2021 Diverticulitis large intesti ne w/o perforation or abscess w/o bleeding 01/20/2021 Ventral hernia without obstruction or gangrene 1 Pacemaker 05/02/2020 Overview (04/18/2024): Patient has a dual-chamber [employer] pacemaker in place model number #K173, serial #[id number]. The RV lead is a [employer] model #1888TC-52, serial #[id number]. The RA lead is a [employer] [place] model number #1888TC-46, serial #[id number]. Assessment & Plan (07/31/2024 10:59 AM EDT): Continues with remote monitoring and routine visits to our device clinic. Type 2 diabetes mellitus wit h complication, without long-term current use of insulin (CMS/HCC V24, CMS/HCC V28) 05/31/2018 Seborrheic keratosis 02/22/2018 Resolved Problems Problem [...] are unremarkable, no cardiovascular contraindications to discharge. Chest pain 05/31/2018 07/31/2024 Encounters Date Type Department Care Team Description 08/01/2024 Telephone [facility] Cardiology [facility] [address] [facility] [address] [place] [address] Mackenzie Finn NP Scheduling Nuclear Stress Test 07/31/2024 10:10 AM EDT Office Visit [facility] Cardiology [facility] [address] [facility] [address] [place] [address] Jennifer Segundo NP HFrEF (heart failure with reduced ejection fraction) (CMS/HCC V24, CMS/HCC V28) (Primary Dx); Coronary artery disease involving ho-chunk coronary artery of ho-chunk heart without angina pectoris; Paroxysmal atrial fibrillation (CMS/HCC V24, CMS/HCC V28); Primary hypertension; Pacemaker; SSS (sick sinus syndrome) (CMS/HCC V24, CMS/HCC V28); Mixed hyperlipidemia 07/26/2024 9:45 AM EDT Office Visit Orthopedic Surgery - [place] [address] [facility] [address] [place] [phone] Dread Verde DPM Post-operative state (Primary Dx) 07/25/2024 Telephone Internal Medicine - [place] [address] [facility] [address] [place] [phone] Shell Mosqueda MA 07/19/2024 10:40 AM EDT Ancillary Procedure [facility] Cardiology [facility] [address] [place] [phone] 07/19/2024 Telephone [facility] [address] [facility] [address] [place] [address] Miranda Beaulieu NP 07/19/2024 Telephone Internal Medicine [facility] [address] [facility] [address] [place] [phone] Castro Cardoso MD Referral (Cardiology Insurance Referral) 07/13/2024 9:01 AM EDT Anesthesia Event [facility] [place] [address] [place] [phone] Kassie Delgado MD Hard, Shannon, CRNA 07/13/2024 9:00 AM EDT - 07/13/2024 10:[address] [facility] OR [address] [place] [phone] Dread Verde DPCasi REPAIR LEFT GREAT TOE HAMMER TOE, RESECTION PARTIAL PHALANX LEFT GREAT TOE [33830 (CPT??)] 07/13/2024 7:38 AM EDT - 07/13/2024 10:56 AM EDT Hospital Encounter [facility] [place] [address] [place] [phone] Dread Verde, DPM Hammer toe of left foot; Ulcer of toe of left foot, with fat layer exposed ([facility] V24, [facility] V28) Discharge Disposition: Home or Self Care 07/12/2024 Telephone [facility] Cardiology [address] [place] [address] Jennifer Segundo NP Medication 07/12/2024 Telephone Orthopedic Surgery [facility] [address] [facility] [address] [place] [address] Dread Verde DPM Medicarion question 07/11/2024 Telephone Orthopedic Surgery [facility] [address] [phone] Chitra Carter 07/10/2024 8:00 AM EDT Consult Orthopedic Surgery [facility] [address] [facility] [address] [place] [address] Dread Verde DPM Hammer toe of left foot (Primary Dx) 07/06/2024 4:55 PM EDT Ancillary Procedure [facility] Cardiology [facility] [address] [facility] [address] [place] [address] 07/04/2024 10:00 AM EDT Consult Internal Medicine [facility] [address] [facility] [address] [place] [address] Castro Cardoso MD Preop examination (Primary Dx); Primary hypertension; HFrEF (heart failure with reduced ejection fraction) (CMS/HCC V24, CMS/HCC V28); Hypercholesterolemia 06/29/2024 Telephone Orthopedic Surgery [facility] [address] [phone] Dread Verde DPM Medication 06/28/2024 2:45 PM EDT Office Visit [facility] [address] [phone] Dread Verde DPM Cellulitis of left foot (Primary Dx); Ulcer of toe of left foot, with fat layer exposed (CMS/HCC V24, CMS/HCC V28); Ingrowing nail; Hammer toe of left foot 06/12/2024 Telephone Internal Medicine - [place] [address] [facility] [address] [place] [address] Castro Cardoso MD 06/06/2024 3:30 PM EST Ancillary Procedure [facility] Cardiology [facility] [address] [facility] [address] [place] [address] Encounter for adjustment or management of cardiac device 06/06/2024 2:40 PM EST Office Visit [facility] Cardiology [facility] [address] [place] [address] Jennifer Segundo NP HFrEF (heart failure with reduced ejection fraction) ([facility] V24, [facility] V28) (Primary Dx); Pacemaker; Coronary artery disease involving ho-chunk coronary artery of ho-chunk heart without angina pectoris; Primary hypertension; SSS (sick sinus syndrome) ([facility] V24, [facility] V28); Paroxysmal atrial fibrillation ([facility] V24, [facility] V28) 06/04/2024 Telephone [facility] Cardiology [facility] [address] [place] [address] Jennifer Segundo NP TOOTH EXTRACTION 05/31/2024 10:46 AM EST - 06/01/2024 5:15 PM EST Hospital Encounter [facility] Emergency [address] [place] [phone] Dionicio Zhou MD Flores, Carlos M, MD Bell, Alistair A, MD Syncope and collapse (Primary Dx); Syncope, unspecified syncope type Discharge Disposition: Home or Self Care 05/16/2024 1:45 PM EST Office Visit Orthopedic Surgery - [place] [address] [phone] Dread Verde DPM Hammer toe of left foot (Primary Dx); Left foot pain; Ulcer of toe of left foot, with fat layer exposed ([facility] V24, [facility] V28); Diabetic mononeuropathy simplex ([facility] V24, [facility] V28); Type II diabetes mellitus with peripheral circulatory disorder ([facility] V24, [facility] V28) from Last 3 Months Immunizations Name Administration [...] PROCEDURE: HISTORICAL CABG TOTAL KNEE ARTHROPLASTY 2017 Bilateral PROCEDURE: HISTORICAL TOTAL KNEE REPLACE OTHER SURGICAL [...] disease); COMMENT: status post bypass surgery A-fib ([facility] V24, [facility] V28) DX:A-fib ([facility]); COMMENT: on coumadin Sick sinus syndrome ([facility] V24, [facility] V28) DX:Sick sinus syndrome ([facility]) ; COMMENT: with a dual chamber pacemaker in place. Peripheral vascular disease ([facility] V24) DX:Peripheral vascular disease ([facility]) PAF (paroxysmal atrial fibri llation) ([facility] V24, [facility] V28) DX:PAF (paroxysmal atrial fibrillation) ([facility]) Plantar fasciitis DX:Plantar fas ciitis Claudication ([facility] V24) DX:Cl audication ([facility]) Family History Medical History Relation Name Comments [...] drink = 0.6 oz pur e alcohol) rarely Interpersonal Safety Answer Date Record ed Physical Abuse 07/13/2024 Verbal Abuse 07/13/2024 Comments No Sex and Gender Information Value [...] Sign Reading Time Taken Comments Blood Pressure 102/48 07/31/2024 10:12 AM EDT Pulse 61 07/31/2024 10:12 AM EDT Temperature 36 ??C (96.8 ??F) 07/13/2024 10:14 AM EDT Respiratory Rate 18 07/13/2024 10:14 AM EDT Oxygen Saturation 96% 07/31/2024 10:12 AM EDT Inhaled Oxygen Concentration - - Weight 88.5 kg (195 lb) 07/31/2024 10:12 AM EDT Height 165.1 cm (5' 5 ) 07/31/2024 10:12 AM EDT Body Mass Index 32.45 07/31/2024 10:12 AM EDT Plan of Treatment Upcoming Encounters Date Type Department Care Team (Late st Contact Info) Description 08/09/2024 10:45 AM EDT Office Visit Orthopedic Surgery [facility] [address] [facility] [address] [place] [address] Dread Verde, DPM [address] [address] 10/23/2024 2:00 PM EDT Ancillary Procedure [facility] Cardiology [facility] [address] [facility] [address] [place] [address] 11/28/2024 11:20 AM EDT Office Visit [facility] Cardiology [facility] [address] [facility] [address] [place] [address] Makenzie Pro MD [address] [place] [address] 01/03/2025 3:00 PM EDT Office Visit Internal Medicine - [place] [address] [facility] [address] [place] [phone] Castro Cardoso MD 175 [facility] [address] [place] [address] Health Maintenance Due Date Last Done Comments [...] history exists Hypertension/CHF/CAD Annual BMP Blood Test 06/01/2025 06/01/2024, 05/31/2024, 04/25/2024, Additional history exists Falls Risk Assessment 07/13/2025 07/13/2024 Cholesterol Screening (Lipid Panel) 04/06/2029 04/06/2024, 10/27/2023, 10/27/2023 Pneumococcal Vaccine: 50+ Years Completed 05/24/2019, 05/31/2018 Influenza Vaccine Completed 02/24/2024, , 01/12/2022, Additional history exists RSV Immunization Adult Patients Completed 04/10/2024 HIB Vaccines Aged Out No [...] age to complete this topic Meningococcal B Vaccine Aged Out No l onger eligible based on patient's age to complete this topic RSV Immunization Patients Under 20 months Aged Out No longer eligible based on patient's age to complete this topic Varicella Vaccines Aged Out No longer eligible based on patient's age to complete this topic Medical Devices Implanted Type Area Professor Of Management Device Identifier Shelf Expiration Date Model / Serial / Lot Abbt-St 2272 Assurity Mri(Tm) [id number] Implanted: (Quantity not on file) Cardiac Pacemaker [employer]- [employer] 2272 ASSURITY MRI(TM) / [id number] / Procedures Procedure Name Priority Date/Time Associated Diagnosis Comments XR FOOT 3+ VIEWS LEFT Routine 07/26/2024 9:55 AM EDT Post-operative state CARDIAC DEVICE CHECK- REMOTE- MURJ Routine 07/19/2024 10:39 AM EDT XR FOOT 3+ VIEWS LEFT Routine 07/13/2024 10:51 AM EDT CULTURE WOUND DEEP Routine 07/13/2024 9: 30 AM EDT Hammer toe of left foot Ulcer of toe of left foot, with fat layer exposed (CMS/HCC V24, CMS/HCC V28) TISSUE EXAM Routine 07/13/2024 9:28 AM EDT Hammer toe of left foot Ulcer of toe of left foot, with fat layer exposed (CMS/HCC V24, CMS/HCC V28) CO CORRECTION HAMMERTOE 07/13/2024 9:00 AM EDT Hammer toe of left foot Ulcer of toe of left foot, with fat layer exposed (CMS/HCC V24, CMS/HCC V28) CARDIAC DEVICE CHECK- REMOTE- MURJ Routine 07/06/2024 4:53 PM EDT EXTERNAL VASCULAR ULTRASOUND 06/28/2024 EXTERNAL VASCULAR ULTRASOUND 06/28/2024 CARDIAC DEVICE CHECK- IN CLINIC- MURJ Routine [...] CONTRAST STAT 05/31/2024 1 2:59 PM EST [id number], RSV, FLU A AND B QUALITATIVE RT-PCR, [...] 05/16/2024 1:47 PM EST Left foot pain LIPID PANEL WITH REFLEX TO DIRECT LDL Routine 04/06/2024 12:10 PM EST Longstanding persistent atrial fibrillation (CMS/HCC V24, CMS/HCC V28) Hypercholesterolemia Congestive heart failure, unspecified HF chronicity, unspecified heart failure type (CMS/HCC V24, CMS/HCC V28) HEMOGLOBIN A1C Routine 04/06/2023 from Last 3 Months or Most Recently Relevant to Health Maintenance Results * XR Foot 3+ Views Left (07/26/2024 9:55 AM EDT) Only the most recent of3 resultswithin the time period is included. Anatomical Region Laterality Modality Lower Extremities, Foot Left Computed Radiography Narrative 07/26/2024 12:47 PM EDT Left foot 3 views Stable postoperative changes us Dread Verde DPM IMG XR PROCEDURES Final R esult * Cardiac device check - Remote- MURJ (07/19/2024 10:39 AM EDT) Only the most recent of2 resultswithin the time period is included. Date Time Interrogation Session [id number] CV DEVICE CHECK Type Interrogation Session Remote Scheduled CV DEVICE CHECK Implantable Pulse Generator Professor [employer] CV DEVICE CHECK Implantable Pulse Generator Type IPG CV DEVICE CHECK Implantable Pulse Generator Model 2272 Assurity MRI(TM) CV DEVICE CHECK Implantable Pulse Generator Serial Number [id number] CV DEVICE CHECK Implantable Pulse Generator Implant Date 20221001 CV DEVICE CHECK Battery Remaining Percentage 79.00 CV DEVICE CHECK Battery Remaining Longevity 56.0 CV DEVICE CHECK Battery Voltage 2.990 CV D EVICE CHECK Battery STRIPPER AND OPAQUER APPRENTICE Trigger 2.600 CV DEVICE CHECK Battery Status Middle of Service CV DEVICE CHECK Nate Statistic RA Percent Paced 91.00 CV DEVICE CHECK Nate Statistic RV Percent Paced 99.00 CV DEVICE CHECK Atrial Tachy Statistic AT/AF [place] Percent 4.00 CV DEVICE CHECK Lead Channel Sensing Intrinsic Amplitude 2.100 CV DEVICE CHECK Lead Channel Setting Sensing Sensitivity 0.50 CV DEVICE CHECK Lead Channel Impedance Value 280 CV DEVICE CHECK Lead Channel Setting Pacing Amplitude 3.000 CV DEVICE CHECK Lead Channel Setting Pacing Pulse Width 0.4 CV DEVICE CHECK Lead Channel Sensing Intrinsic Amplitude 12.000 CV DEVICE CHECK Lead Channel Setting Sensing Sensitivity 2.00 CV DEVICE CHECK Lead Channel Impedance Value 340 CV DEVICE CHECK Lead Channel Pacing Threshold Amplitude 0.875 CV DEVICE CHECK Lead Channel Pacing Threshold Pulse Width 0.4 CV DEVICE CHECK Lead Channel RV Pacing Threshold Date 2024-07-18 CV DEVICE CHECK Lead Channel Setting Pacing [...] 150 CV DEVICE CHECK Date of Service 2024-07-28 CV DEVICE CHECK Anatomical Region Laterality Modality Device Interroga tion 07/18/2024 2:00 AM EDT Impressions 07/19/2024 10:37 AM EDT Increased AF [place] AF Alerts are off * Device diagnostics indicate increased AF burden since last check * Current AT/AF [place]: Ongoing since 4/12/25 / Rate Controlled / Meds include Coumadin * Prior AT/AF [place]: ?? Narrative Procedure Note Miranda Beaulieu NP - 07/19/2024 IMPRESSION: Increased AF [place] AF Alerts are off * Device diagnostics indicate increased AF burden since last check * Current AT/AF [place]: Ongoing since 07/14/24 / Rate Controlled / Medsinclude Coumadin * Prior AT/AF [place]: us Miranda Beaulieu NP CV IMPLANTABLE CARDIAC DEVICE PROCEDURES Final Result * Culture wound deep (07/13/2024 9:30 AM EDT) Culture, Wound No growth at 3 days 07/16/2024 10:36 AM EDT [facility] Gram Stain Result No polymorphonuclear leukocytes, No epithelial cells, and No organisms noted 07/16/2024 10:36 AM EDT [facility] Swab Structure of left foot / Unknown 07/13/2024 9:30 AM EDT 07/13/2024 10:09 AM EDT Dread Verde DPM LAB MICROBIOLOGY - GENERA L ORDERABLES Final Result [facility] [address] [place] [address], [place] [phone] * Tissue exam (07/13/2024 9:28 AM EDT) Final Diagnosis Bone, Left great toe phalanx-reapair hammertoe: -DEGENERATIVE OSTEOARTHROPATHY, CONSISTENT WITH HAMMERTOE DEFORMITY/ EXOSTOSIS 07/17/2024 12:01 PM EDT [facility] Gross Description A. Foot, Left, Exostosis great toe phalanx: Labeled exostosis foot L . Received in formalin is a 1.8 x 1.2 x 0.5 cm portion of yellow indurated bone with attached soft, crow-pink to red tissue. The articular surfaces smooth and red to white. The specimen is sectioned and a insurance sales representative section is submitted in one cassette, one piece, following decalcification. TS 07/17/2024 12:01 PM EDT [facility] Disclaimer Unless otherwise specified, all tissue is 10% NB formalin fixed and paraffin embedded. 07/17/2024 12:01 PM EDT [facility] Tissue Structure of left foot / Unknown 07/13/2024 9:28 AM EDT 07/13/2024 10:53 AM EDT Dread Verde DPM LAB PATHOLOGY ORDERABLES Final Result [facility] [address] [place] [address], [place] [phone] * External Vascular Ultrasound (06/28/2024) Only the most recent of2 resultswithin the time period is included. Anatomical Region Laterality Modality Ultrasound Provider [facility] CV VASCULAR PROCEDURES F inal Result * CARDIAC DEVICE CHECK- IN CLINIC- MUR (06/27/2024 1:06 PM EDT) Date Time Interrogation Session [id number] CV DEVICE CHECK Implantable Pulse Generator Professor Of Management [employer] CV DEVICE CHECK Implantable Pulse Generator Type IPG CV DEVICE CHECK Implantable Pulse Generator Model 2272 Assurity MRI(TM) CV DEVICE CHECK Implantable Pulse Generator Serial Number [id number] CV DEVICE CHECK Implantable Pulse Generator Implant Date 20221001 CV DEVICE CHECK Battery Status Middle of Service CV DEVICE CHECK Nate Statistic RA Percent Paced 94.00 CV DEVICE CHECK Nate Statistic RV Percent Paced 99.00 CV DEVICE CHECK Atrial Tachy Statistic AT/AF [place] Percent 1.00 CV DEVICE CHECK Lead Channel [...] in ER * Presenting rhythm: AP - HUC 60's * Heart Rate Histograms reviewed * Device Function and programmed parameters reviewed * AMS event documented (EGM suggestive of PAT with small amount of noise Narrative Procedure Note Kassie Fairchild MD - 06/27/2024 IMPRESSION: Hospital Check * Patient was seen in hospital by * Reason: Pt in ER * Presenting rhythm: AP - HUC 60's * Heart Rate Histograms reviewed * [...] Signed Date: 06/01/2024 16:22 ET Workstation ID: [id number] Transcribed By: Self Edit Transcribed Date: 06/01/2024 [...] Signed Date: 06/01/2024 16:22 ET Workstation ID: [id number] Transcribed By: Self Edit Transcribed Date: 06/01/2024 16:21 ET us Romario Rich MD CV VASCULAR PROCEDURES Final Result * (ABNORMAL) TRANSTHORACIC ECHOCARDIOGRAM (TTE) COMPLETE W/ CONTRAST (06/01/2024 9:59 AM EST) Left Atrium Minor Burdett 6.8 cm CV PACS Left Atrium Major Burdett 6.1 cm CV PACS LA Area Sys [...] Area 2.8 cm2 CV PACS MV Deceleration [place] 4.8 m/s2 CV PACS E Wave Deceleration [...] with the patient in a supine position. us Terra Garcia NP CV ECHO PROCEDURES Final Result * (ABNORMAL) CBC auto differential (06/01/2024 7:37 AM EST) Only the most recent of2 resultswithin the time period is included. WBC 9.1 4.8 - 10.8 K/mcL LAB HEMETOLOGY METHOD 06/01/2024 7:56 AM [facility] RBC 3.90 3.80 - 4.80 M/mcL LAB HEMETOLOGY METHOD 06/01/2024 7:56 AM [facility] Hemoglobin 12.0 11.5 - 16.0 g/dL LAB HEMETOLOGY METHOD 06/01/2024 7:56 AM [facility] Hematocrit 38.2 35.0 - 47.0 % LAB HEMETOLOGY METHOD 06/01/2024 7:56 AM [facility] MCV 99.2(H) 79.0 - 98.0 FL LAB HEMETOLOGY METHOD 06/01/2024 7:56 AM [facility] MCH 31.2 27.0 - 32.0 pcg LAB HEMETOLOGY METHOD 06/01/2024 7:56 AM [facility] MCHC 31.4(L) 32.0 - 37.0 g/dL LAB HEMETOLOGY METHOD 06/01/2024 7:56 AM [facility] RDW 14.0 11.0 - 15.0 % LAB HEMETOLOGY METHOD 06/01/2024 7:56 AM [facility] Platelets 193 130 - 400 K/mcL LAB HEMETOLOGY METHOD 06/01/2024 7:56 AM [facility] MPV 11.4(H) 7.0 - 11.0 FL LAB HEMETOLOGY METHOD 06/01/2024 7:56 AM [facility] NRBC 0.0 <1.0 % LAB HEMETOLOGY METHOD 06/01/2024 7:56 AM [facility] NRBC Absolute 0.00 <0.10 K/mcL LAB HEMETOLOGY METHOD 06/01/2024 7:56 AM [facility] Neutrophils Relative 70.3 % LAB HEMETOLOGY METHOD 06/01/2024 7:56 AM [facility] Lymphocytes Relative 18.8 % LAB HEMETOLOGY METHOD 06/01/2024 7:56 AM [facility] Monocytes Relative 8.4 % LAB HEMETOLOGY METHOD 06/01/2024 7:56 AM [facility] Eosinophils Relative 2.0 % LAB HEMETOLOGY METHOD 06/01/2024 7:56 AM [facility] Basophils Relative 0.2 % LAB HEMETOLOGY METHOD 06/01/2024 7:56 AM [facility] Immature Granulocytes Relative 0.3 % LAB HEMETOLOGY METHOD 06/01/2024 7:56 AM [facility] Neutrophils Absolute 6.42 1.50 - 7.00 K/mcL LAB HEMETOLOGY METHOD 06/01/2024 7:56 AM [facility] Lymphocytes Absolute 1.72 1.00 - 5.00 K/mcL LAB HEMETOLOGY METHOD 06/01/2024 7:56 AM EST [facility] Monocytes Absolute 0.77 0.20 - 1.00 K/[facility] LAB HEMETOLOGY METHOD 06/01/2024 7:56 AM EST [facility] Eosinophils Absolute 0.18 0.00 - 0.50 K/[facility] LAB HEMETOLOGY METHOD 06/01/2024 7:56 AM EST [facility] Basophils Absolute 0.02 0.00 - 0.20 K/[facility] LAB HEMETOLOGY METHOD 06/01/2024 7:56 AM EST [facility] Immature Granulocytes Absolute 0.03 0.00 - 0.03 K/[facility] LAB HEMETOLOGY METHOD 06/01/2024 7:56 AM EST [facility] Blood Venous blood specimen / Unknown Venipuncture / Unknown 06/01/2024 7:37 AM EST 06/01/2024 7:42 AM EST Stephen Gray MD LAB BLOOD ORDERABLES Final Re sult [facility] [address] [place] [address], * (ABNORMAL) Prothrombin time with INR (06/01/2024 7:37 AM EST) Protime 21.5(H) 10.6 - 13.9 sec LAB COAGULATION METHOD 06/01/2024 7:58 AM EST [facility] INR 1.7 LAB COAGULATION METHOD 06/01/2024 7:58 AM EST [facility] Blood Venous blood specimen / Unknown Venipuncture / Unknown 06/01/2024 7:37 AM EST 06/01/2024 7:42 AM EST Terra Garcia NP LAB BLOOD ORDERABLES Fin al Result [facility] [address] [place] [address], [place] [phone] * Magnesium (06/01/2024 7:37 AM EST) Only the most recent of2 resultswithin the time period is included. [facility] Magnesium 2.6 1.9 - 2.6 mg/dL LAB CHEMISTRY METHOD 06/01/2024 8:27 AM [facility] Blood Venous blood specimen / Unknown Venipuncture / Unknown 06/01/2024 7:37 AM EST 06/01/2024 7:42 AM EST Stephen Gray MD LAB BLOOD ORDERABLES Final Re sult [facility] [address] [place] [address], * (ABNORMAL) Basic metabolic panel (06/01/2024 7:37 AM EST) [facility] Sodium 137 133 - 145 mmol/L LAB CHEMISTRY METHOD 06/01/2024 9:03 AM [facility] Potassium 4.4 3.5 - 5.5 mmol/L LAB CHEMISTRY METHOD 06/01/2024 9:03 AM [facility] Chloride 105 96 - 110 mmol/L LAB CHEMISTRY METHOD 06/01/2024 9:03 AM [facility] CO2 27 21 - 32 mmol/L LAB CHEMISTRY METHOD 06/01/2024 9:03 AM [facility] Anion Gap 5 3 - 11 LAB CHEMISTRY METHOD 06/01/2024 9:03 AM [facility] Glucose 104(H) 70 - 100 mg/dL LAB CHEMISTRY METHOD 06/01/2024 9:03 AM [facility] BUN 38(H) 5 - 25 mg/dL LAB CHEMISTRY METHOD 06/01/2024 9:03 AM [facility] Creatinine 1.25(H) 0.50 - 1.10 mg/dL LAB CHEMISTRY METHOD 06/01/2024 9:03 AM [facility] eGFR 42(L) >=60 mL/min/1. 73m2 LAB CHEMISTRY METHOD 06/01/2024 9:03 AM [facility] Comment:Calculation based on the??Chronic Kidney Disease Epidemiology Collaboration (CKD-EPI) equation refit??without adjustment for race. BUN/Creatinine Ratio 30.4 LAB CHEMISTRY METHOD 06/01/2024 9:03 AM [facility] Calcium 9.5 8.5 - 10.5 mg/dL LAB CHEMISTRY METHOD 06/01/2024 9:03 AM [facility] Blood Venous blood specimen / Unknown Venipuncture / Unknown 06/01/2024 7:37 AM EST 06/01/2024 7:42 AM EST us Stephen Gray MD LAB BLOOD ORDERABLES Final Re sult [facility] [address] [place] [address], * (ABNORMAL) Urinalysis with reflex microscopic and culture (05/31/2024 10:39 PM EST) Specific [place] Urine 1.017 1.003 - 1.030 LAB URINALYSIS - AUTOMATED METHOD 05/31/2024 11:32 PM [facility] pH, Urine 5.5 5.0 - 8.0 pH LAB URINALYSIS - AUTOMATED METHOD 05/31/2024 11:32 PM [facility] Leukocytes, Urine Trace(A) Negative LAB URINALYSIS - AUTOMATED METHOD 05/31/2024 11:32 PM [facility] Nitrite, Urine Negative Negative LAB URINALYSIS - AUTOMATED METHOD 05/31/2024 11:32 PM [facility] Protein, Urine Negative <=Trace mg/dL LAB URINALYSIS - AUTOMATED METHOD 05/31/2024 11:32 PM [facility] Glucose, Urine >=1000(A) Negative mg/dL LAB URINALYSIS - AUTOMATED METHOD 05/31/2024 11:32 PM [facility] Ketones, Urine Negative Negative mg/dL LAB URINALYSIS - AUTOMATED METHOD 05/31/2024 11:32 PM [facility] Urobilinogen , Urine 0.2 0.2 - 1.0 mg/dL LAB URINALYSIS - AUTOMATED METHOD 05/31/2024 11:32 PM [facility] Bilirubin, Urine Negative Negative LAB URINALYSIS - AUTOMATED METHOD 05/31/2024 11:32 PM [facility] Blood, Urine Negative Negative LAB URINALYSIS - AUTOMATED METHOD 05/31/2024 11:32 PM [facility] RBC, Urine 1.2 0 - 4 /HPF LAB URINALYSIS - AUTOMATED METHOD 05/31/2024 11:32 PM [facility] WBC, Urine 7.1(H) 0 - 4 /HPF LAB URINALYSIS - AUTOMATED METHOD 05/31/2024 11:32 PM [facility] Squamous Epithelial, Urine 35 0 - 60 /LPF LAB URINALYSIS - AUTOMATED METHOD 05/31/2024 11:32 PM [facility] Bacteria, Urine Negative Negative /HPF LAB URINALYSIS - AUTOMATED METHOD 05/31/2024 11:32 PM [facility] Hyaline Casts, Urine 1.2 0 - 3 /LPF LAB URINALYSIS - AUTOMATED METHOD 05/31/2024 11:32 PM [facility] Urine Urine specimen obtained by clean catch procedure / Unknown Non-blood Collection / Unknown 05/31/2024 10:39 PM EST 05/31/2024 11:01 PM EST us Dionicio Zhou MD LAB URINE ORDERABLES Final Re sult Performing Organization Address [place]/[facility]/ZIP Co de Phone Number [facility] [address] [place] [address], [place] [phone] * Mitchell urine culture tube (05/31/2024 10:39 PM EST) Extra Tube Hold for add-ons. 06/01/2024 1:09 AM EST [facility] Comment:Auto resulted. Urine Urine specimen obtained by clean catch procedure / Unknown Non-blood Collection / Unknown 05/31/2024 10:39 PM EST 05/31/2024 11:01 PM EST Dionicio Zhou MD LAB URINE ORDERABLES Final Re sult Performing Organization Address [place]/[facility] Co de Phone Number [facility] [address] [place] [address], [place] [phone] * Culture urine (05/31/2024 10:39 PM EST) Culture, Urine <10,000 cfu/ml, insignificant count, no further workup. 06/02/2024 10:22 AM EST [facility] Urine Urine specimen obtained by clean catch procedure / Unknown Non-blood Collection / Unknown 05/31/2024 10:39 PM EST 05/31/2024 11:32 PM EST Dionicio Zhou MD LAB MICROBIOLOGY - GENERAL OR DERABLES Final Result Performing Organization Address [place]/[facility] Co de Phone Number [facility] [address] [place] [address], [place] [phone] * XR Chest 1 View (05/31/2024 3:33 [...] Signed Date: 05/31/2024 15:53 ET Workstation ID: [id number] Transcribed By: Self Edit Transcribed Date: 05/31/2024 [...] Signed Date: 05/31/2024 15:53 ET Workstation ID: [id number] Transcribed By: Self Edit Transcribed Date: 05/31/2024 15:52 ET us Dionicio Zhou MD IMG XR PROCEDURES Final Resul t * Troponin I high sensitivity (05/31/2024 1:40 PM EST) Only the most recent of2 resultswithin the time period is included. High Sensitivity Troponin I 16 <=54 ng/L LAB CHEMISTRY METHOD 05/31/2024 2:37 PM EST [facility] Blood Venous blood specimen / Unknown Venipuncture / Unknown 05/31/2024 1:40 PM EST 05/31/2024 1:59 PM EST Narrative [facility] - 05/31/2024 2:37 PM EST High levels of biotin in samples may falsely decrease hsTroponin values. ??Use caution when interpreting hsTroponin results in patients taking biotin who exhibit renal impairment (eGFR <60) or in patients taking more than 20 mg/day of biotin. Christophe Gonzalez MD LAB BLOOD ORDERABLES Aileen l Result [facility] ([facility] [address] [place] [address], * CT Cervical Spine wo Contrast (05/31/2024 [...] Signed Date: 05/31/2024 13:14 ET Workstation ID: [id number] Transcribed By: Self Edit Transcribed Date: 05/31/2024 [...] Signed Date: 05/31/2024 13:14 ET Workstation ID: [id number] Transcribed By: Self Edit Transcribed Date: 05/31/2024 13:12 ET Christophe Gonzalez MD [facility] [place] PROCEDURES Final R esult * CT [...] Signed Date: 05/31/2024 13:12 ET Workstation ID: [id number] Transcribed By: Self Edit Transcribed Date: 05/31/2024 [...] was performed utilizing dose reductiontechniques. Total DLP 194 COMPARISON: No priors available. FINDINGS: No acute [...] Signed Date: 05/31/2024 13:12 ET Workstation ID: [id number] Transcribed By: Self Edit Transcribed Date: 05/31/2024 13:10 ET us Christophe Gonzalez MD IM CT PROCEDURES Final R esult * [id number], RSV, Influenza A and B qualitative RT-PCR (05/31/2024 11:29 AM EST) Influenza A PCR Not Detected Not Detected LAB MICROBIOLOGY METHOD 05/31/2024 1:22 PM [facility] Influenza B PCR Not Detected Not Detected LAB MICROBIOLOGY METHOD 05/31/2024 1:22 PM [facility] RSV PCR Not Detected Not Detected LAB MICROBIOLOGY METHOD 05/31/2024 1:22 PM [facility] SARS COV-2 Not Detected Not Detected LAB MICROBIOLOGY METHOD 05/31/2024 1:22 PM [facility] Swab Both anterior nares / Unknown Non-blood Collection / Unknown 05/31/2024 11:29 AM EST 05/31/2024 12:18 PM [facility] - 05/31/2024 1:22 PM EST Disclaimer: ??Testing was performed using the QVPN GeneXpert Xpress SARS-CoV-2 _Flu_RSV PLUS PCR assay. [...] for Healthcare providers can be found at https://www.fda.gov/media/574318/download. ?? Fact sheet for Healthcare patients can be found at https://www.fda.gov/media/447479/download. us Dionicio Zhou MD LAB MICROBIOLOGY - GENERAL OR DERABLES Final Result [facility] [address] [place] [address], * (ABNORMAL) B-type natriuretic peptide (05/31/2024 11:28 AM EST) BNP 114(H) <=100 pcg/mL LAB CHEMISTRY METHOD 05/31/2024 1:19 PM EST [facility] Blood Venous blood specimen / Unknown Venipuncture / Unknown 05/31/2024 11:28 AM EST 05/31/2024 12:20 PM EST Christophe Gonzalez MD LAB BLOOD ORDERABLES Aileen l Result [facility] [address] [place] [address], [place] [phone] * Lipase (05/31/2024 11:28 AM EST) [facility] Lipase 49 13 - 75 unit/L LAB CHEMISTRY METHOD 05/31/2024 12:57 PM EST [facility] Blood Venous blood specimen / Unknown Venipuncture / Unknown 05/31/2024 11:28 AM EST 05/31/2024 12:20 PM EST Christophe Gonzalez MD LAB BLOOD ORDERABLES Aileen l Result Performing Organization Address City/[facility]/ZIP Co de Phone Number [facility] [address] [place] [address], [place] [phone] * (ABNORMAL) Comprehensive metabolic panel (05/31/2024 11:28 AM EST) [facility] Sodium 135 133 - 145 mmol/L LAB CHEMISTRY METHOD 05/31/2024 1:35 PM [facility] Potassium 5.0 3.5 - 5.5 mmol/L LAB CHEMISTRY METHOD 05/31/2024 1:35 PM [facility] Chloride 102 96 - 110 mmol/L LAB CHEMISTRY METHOD 05/31/2024 1:35 PM [facility] CO2 28 21 - 32 mmol/L LAB CHEMISTRY METHOD 05/31/2024 1:35 PM [facility] Anion Gap 5 3 - 11 LAB CHEMISTRY METHOD 05/31/2024 1:35 PM [facility] Glucose 115(H) 70 - 100 mg/dL LAB CHEMISTRY METHOD 05/31/2024 1:35 PM [facility] BUN 42(H) 5 - 25 mg/dL LAB CHEMISTRY METHOD 05/31/2024 1:35 PM [facility] Creatinine 1.18(H) 0.50 - 1.10 mg/dL LAB CHEMISTRY METHOD 05/31/2024 1:35 PM [facility] eGFR 45(L) >=60 mL/min/1. 73m2 LAB CHEMISTRY METHOD 05/31/2024 1:35 PM [facility] Comment:Calculation based on the??Chronic Kidney Disease Epidemiology Collaboration (CKD-EPI) equation refit??without adjustment for race. BUN/Creatinine Ratio 35.6 LAB CHEMISTRY METHOD 05/31/2024 1:35 PM [facility] Calcium 9.6 8.5 - 10.5 mg/dL LAB CHEMISTRY METHOD 05/31/2024 1:35 PM [facility] AST (SGOT) 11 10 - 42 unit/L LAB CHEMISTRY METHOD 05/31/2024 1:35 PM [facility] ALT (SGPT) 19 10 - 60 unit/L LAB CHEMISTRY METHOD 05/31/2024 1:35 PM [facility] Alkaline Phosphatase 50 42 - 121 unit/L LAB CHEMISTRY METHOD 05/31/2024 1:35 PM [facility] Total Protein 6.4 6.0 - 8.0 g/dL LAB CHEMISTRY METHOD 05/31/2024 1:35 PM [facility] Albumin 3.5 3.2 - 5.0 g/dL LAB CHEMISTRY METHOD 05/31/2024 1:35 PM [facility] Total Bilirubin 0.7 0.0 - 1.4 mg/dL LAB CHEMISTRY METHOD 05/31/2024 1:35 PM [facility] Blood Venous blood specimen / Unknown Venipuncture / Unknown 05/31/2024 11:28 AM EST 05/31/2024 12:20 PM EST us Christophe Gonzalez MD LAB BLOOD ORDERABLES Aileen l Result [facility] [address] [place] [address], [place] [phone] * ECG 12 lead (05/31/2024 11:22 AM EST) Ventricular Rate ECG 62 BPM GEMUSE Atrial Rate 62 BPM GEMUSE P-R Interval 204 ms GEMUSE QRS Duration 154 ms GEMUSE Q-T Interval 494 ms GEMUSE QTc 501 ms GEMUSE R Burdett 160 degrees GEMUSE T Burdett 88 degrees GEMUSE ECG Interpretation AV dual-paced rhythm Abnormal ECG When compared with ECG of 18-APR-2024 14:25, No significant changes are noted Confirmed by KASSIE ELENA ([id number]) on 05/31/2024 4:33:09 PM GEMUSE 05/31/2024 11:2 2 AM EST 05/31/2024 4:33 PM EST Christophe Gonzalez MD ECG ORDERABLES Final Res ult GEMUSE * Lipid panel with reflex to direct LDL (04/06/2024 12:10 PM EST) Cholesterol 154 0 - 200 mg/dL LAB CHEMISTRY METHOD 04/06/2024 3:06 PM [facility] Triglycerides 95 0 - 150 mg/dL LAB CHEMISTRY METHOD 04/06/2024 3:06 PM [facility] HDL 49 >=40 mg/dL LAB CHEMISTRY METHOD 04/06/2024 3:06 PM [facility] LDL Calculated 86 0 - 100 mg/dL LAB CHEMISTRY METHOD 04/06/2024 3:06 PM [facility] VLDL Cholesterol Ed 19 mg/dL LAB CHEMISTRY METHOD 04/06/2024 3:06 PM [facility] Non HDL Chol. (LDL+VLDL) 105 <145 mg/dL LAB CHEMISTRY METHOD 04/06/2024 3:06 PM [facility] Chol/HDL Ratio 3.1 0.0 - 4.4 LAB CHEMISTRY METHOD 04/06/2024 3:06 PM EST [facility] Blood Venous blood specimen / Unknown Venipuncture / Unknown 04/06/2024 12:10 PM EST 04/06/2024 12:10 PM EST Castro Cardoso MD LAB BLOOD ORDERABLES Final Resul t [facility] ([facility]) [facility] [address] [place] [address], * Hemoglobin A1c (04/06/2023) Hemoglobin A1C 6.2 <=6.5 % Blood Venous blood specimen / Unknown Historical Provider LAB BLOOD ORDERABLES Aileen l Result from Last 3 Months or Most Recently Relevant to Health Maintenance Insurance [employer] Advance Directives Documents on File Type Date Recorded 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 Care Teams Cert Occupational Therapy Asst Relationship Specialty Start Date End Date Castro Cardoso MD [address] [place] [address] PCP - General Internal Medicine 03/08/13
--- OUTSIDE RECORDS SUMMARY | 2024-08-03 11:31 | XMS_ITS | Encounter Summary ---
Author Organization [facility] Address [address] [place] [address] Care Team Providers Care Addictions Counselor Assistant Name Role Phone Castro Cardoso MD Primary Care Provider [phone] Reason for Referral * Consultation (Routine) - Authorized Specialty Diagnoses / Procedures Referred By Contac t Referred To Contact Cardiology Diagnoses Unspecified atrial fibrillation (CMS/HCC V24, CMS/HCC V28) Castro Cardoso MD [address] [address] Phone: tel: fax: [facility] - [address] [place] [address] Phone: tel: fax: Referral ID Status Reason Start Date Expiration Date Visits Requested Visits Authorized [id number] Authorized Specialty Services Required 07/19/2024 07/19/2025 6 6 Reason for Visit * Reason Onset Date Comments Referral 07/19/2024 Cardiology Insur ance Referral Encounter Details Date Type Department Care Team (Late st Contact Info) Description 07/19/2024 Telephone Internal Medicine - [place] 175 [facility] [address] [place] [phone] Castro Cardoso MD 175 [facility] [address] [place] [address] Referral (Cardiology Insurance Referral) Social History Tobacco Use Types Packs/Day Years [...] AM EST documented as of this encounter Progress Notes * Zayda Shah - 07/19/2024 8:51 AM EDT What insurance does the patient have today? Payor: [facility]@/@[facility]@ Referrals cannot be processed if the insurance is not accurate. If the insurance listed above is NO BILLING INFORMATION FOUND FOR THIS ENCOUNTER then the patients correct insurance must be obtainedand registered in [facility] or their referral can not be processed. Name of person calling to request this referral? Fax - [facility] Referred To Provider (Include first and last name): Dionicio Michael NPI (if known): [phone] Order/Specialty requested cardiology Chief Complaint (Note: This is not a body part or a procedure): I48.91 Has the patient seen provider for this problem/Dx before? N/A Referred To Provider Address: Referred To Provider Referred To Provider Does patient have an appointment scheduled?: yes If yes, what is the date of the appointment?: 07/31/24 Is this a retro request? no Number of visits requested: 6 Is this appointment related to: MVA or worker compensation? no documented in this encounter Plan of Treatment Upcoming Encounters Date Type Department Care Team (Late st Contact Info) Description 08/09/2024 10:45 AM EDT Office Visit Orthopedic Surgery - [place] [address] [place] [address] Dread Verde DPM [address] [place] [address] 10/23/2024 2:00 PM EDT Ancillary Procedure [facility] - [address] [place] [address] 11/28/2024 11:20 AM EDT Office Visit [facility] - [address] [place] [address] Makenzie Pro MD [address] [place] [address] 01/03/2025 3:00 PM EDT Office Visit Internal Medicine - [place] [address] [place] [address] Castro Cardoso MD [address] [facility] [address] [place] [address] Scheduled Referrals Name Type Priority Associated Diagnoses Orde r Schedule Ambulatory referral to Cardiology Outpatient Referral Routine Unspecified atrial fibrillation (CMS/HCC V24, CMS/HCC V28) Expected: 07/19/2024, Expires: 07/19/2025 documented as of this encounter Visit Diagnoses Diagnosis Unspecified atrial fibrillation (CMS/HCC V24, CMS/HCC V28)- Primary Encounter for adjustment or management of cardiac device documented in this encounter Care Teams Addictions Counselor Assistant Relationship Specialty Start Date End Date Castro Cardoso MD [address] [place] [address] PCP - General Internal Medicine 03/08/13 documented as of this encounter
--- OUTSIDE RECORDS SUMMARY | 2024-08-03 11:31 | XMS_ITS | Encounter Summary ---
Author Organization [facility] Address [address] [place] [address] Care Team Providers Care Investigator Utility Bill Complaints Name Role Phone Castro Cardoso MD Primary Care Provider [phone] Reason for Visit * Reason Comments Follow-up * Consultation (Routine) - Authorized Specialty Diagnoses / Procedures Referred By Contac t Referred To Contact Cardiology Diagnoses Unspecified atrial fibrillation (CMS/HCC V24, CMS/HCC V28) Castro Cardoso MD [address] [place] [address] [address] [place] [address] Phone: tel: fax: [facility] [address] Sil[address] [place] [address] Phone: tel: fax: Referral ID Status Reason Start Date Expiration Date Visits Requested Visits Authorized [id number] Authorized Specialty Services Required 07/19/2024 07/19/2025 6 6 Encounter Details Date Type Department Care Team (Latest Contact Info) Description 07/31/2024 10:10 AM EDT Office Visit [facility] [address] Silveira [address] [place] [address] Jennifer Segundo NP [address] [place] [address] Dr Payne [address] [place] [address] HFrEF (heart failure with reduced ejection fraction) (CMS/HCC V24, CMS/HCC V28) (Primary Dx); Coronary artery disease involving skokomish coronary artery of skokomish heart without angina pectoris; Paroxysmal atrial fibrillation ([facility] V24, [facility] V28); Primary hypertension; Pacemaker; SSS (sick sinus syndrome) ([facility] V24, [facility] V28); Mixed hyperlipidemia Social History Tobacco Use Types [...] Pulse 61 07/31/2024 10:12 AM EDT Temperature - - Respiratory Rate - - Oxygen Saturation 96% 07/31/2024 10:12 AM EDT Inhaled Oxygen Concentration - - Weight 88.5 kg (195 lb) 07/31/2024 10:12 AM EDT Height 165.1 cm (5' 5 ) 07/31/2024 10:12 AM EDT Body Mass Index 32.45 07/31/2024 10:12 AM EDT documented in this encounter Ordered Prescriptions Prescription Sig Dispense Quantity Refills Last Filled Start Date End Date carvediloL (COREG) 6.25 mg tablet Take 1 tablet (6.25 mg total) by mouth 2 (two) times a day with meals. 180 tablet 1 07/31/2024 carvediloL (COREG) 3.125 mg tablet Take 1 tablet (3.125 mg total) by mouth 2 (two) times a day with meals. 180 tablet 1 07/31/2024 07/31/2024 documented in this encounter Progress Notes * Jennifer Segundo NP - 07/31/2024 10:10 AM EDTAssociated Problem(s): Atrial fibrillation ([facility] V24, [facility] V28) Patient continues on anticoagulation with Eliquis. Appropriately dosed on 5 mg twice daily given her weight and renal function. * Jennifer Segundo NP - 07/31/2024 10:10 AM EDTAssociated Problem(s): CAD (coronary artery disease) Patient has history of coronary artery disease [...] and following up with routine medical care. * Jennifer Segundo NP - 07/31/2024 10:10 AM EDTAssociated Problem(s): HFrEF (heart failure with reduced ejection fraction) ([facility] V24, [facility] V28) Patient has history of HFrEF with an [...] heart failure and she appears euvolemic on physicalexamination. I've asked the patient to call if they develop worsening symptoms of heart failure such as increased shortness of breath, new or worsening cough, increased swelling in the legs or ankles, or weight gain of more than 2 pounds in one day or 4 pounds in one week. * Jennifer Segundo NP - 07/31/2024 10:10 AM EDTAssociated Problem(s): HTN (hypertension) Blood pressure today 102/48. Continue with medical therapies as prescribed. * Jennifer Segundo NP - 07/31/2024 10:10 AM EDTAssociated Problem(s): Pacemaker Continues with remote monitoring and routine visits to our device clinic. * Jennifer Segundo NP - 07/31/2024 10:10 AM EDTAssociated Problem(s): SSS (sick sinus syndrome) (CMS/HCC V24, CMS/HCC V28) Patient has history of sick sinus syndrome status post pacemaker. Generator change 09/2022 with an upgrade to a biventricular device. Will continue with remote monitoring and routine visits to our device clinic. * Jennifer Segundo NP - 07/31/2024 10:10 AM EDTAssociated Problem(s): HLD (hyperlipidemia) Patient's last LDL cholesterol was 86. This is above goal. We recently increased the rosuvastatin to 10 mg once a day and we will plan to repeat a lipid panel in 12 weeks. documented in this encounter Plan of Treatment Upcoming Encounters Date Type Department Care Team (Late st Contact Info) Description 08/09/2024 10:45 AM EDT Office Visit Orthopedic Surgery - [place] [address] [address] Dread Verde, DPM [address] [address] 10/23/2024 2:00 PM EDT Ancillary Procedure [facility] [address] [place] [address] 11/28/2024 11:20 AM EDT Office Visit [facility] [address] [place] [address] Makenzie Pro MD [address] [place] [address] 01/03/2025 3:00 PM EDT Office Visit Internal Medicine - [place] 175 [facility] [address] [place] [address] Castro Cardoso MD 175 [facility] 200 [place] [address] documented as of this encounter Visit Diagnoses Diagnosis HFrEF (heart failure with reduced ejection fraction) (CMS/[facility] V24, CMS/[facility] V28)- Primary Coronary artery disease involving skokomish coronary artery of skokomish heart without angina pectoris Paroxysmal atrial fibrillation (CMS/HCC V24, CMS/HCC V28) Atrial fibrillation Primary hypertension Unspecified essential hypertension Pacemaker Cardiac pacemaker in situ SSS (sick sinus syndrome) (CMS/HCC V24, CMS/HCC V28) Sinoatrial node dysfunction Mixed hyperlipidemia Encounter for adjustment or management of cardiac device documented in this encounter Discontinued Medications Medication Sig Discontinue Reason Start Date End Da te carvediloL (COREG) 6.25 mg tablet Take 3.125 mg by mouth 2 (two) times a day with meals. Reorder 07/31/2024 carvediloL (COREG) 3.125 mg tablet Take 1 tablet (3.125 mg total) by mouth 2 (two) times a day with meals. Reorder 07/31/2024 07/31/2024 documented as of this encounter Orders Outpatient Referral Count Last Ordered Date Fir st Ordered Date AMB REFERRAL TO CARDIOLOGY 1 07/31/2024 documented in this encounter Care Teams Investigator Utility Bill Complaints Relationship Specialty Start Date End Date Castro Cardoso MD [address] [place] [address] PCP - General Internal Medicine 03/08/13 documented as of this encounter
--- OUTSIDE RECORDS SUMMARY | 2024-08-03 11:31 | XMS_ITS | Encounter Summary ---
Author Organization [facility] Address [address] [place] [address] Care Team Providers Care [employer] Dean Name Role Phone Castro Cardoso MD Primary Care Provider [phone] Encounter Details Date Type Department Care Team ([facility] st Contact Info) Description 07/19/2024 Telephone [facility] - [facility] 154 300 [facility] 154 [place] [phone] Miranda Beaulieu NP 300 [facility] 154 [place] [phone] Social History Tobacco Use Types Packs/Day Years [...] as of this encounter Progress Notes * Kandis Haddad RN - 07/19/2024 11:13 AM EDT Spoke with patient regarding task below. Back on Eliquis 5mg BID day after surgery. No missed dosessince. I updated med list. Coreg 6.25mg BID (she is unsure when this was decreased) Spironolactone 25mg qd (she is unsure whenthis was increased) Denied any sx. * Miranda Beaulieu NP - 07/19/2024 10:35 AM EDT FYI this patient appears to have gone into AF on July 14 at 5:00 in the morning. As of yesterday morning has been persistent. She is rate controlled with V pacing. She is anticoagulated. Unfortunately, patient just had interruption in anticoagulation on July 12 and for repair of left great maricruz ertoe and resection of her left great toe. Triage can we please call this patient and find out whether or not she is symptomatic with her arrhythmia. Can we ensure that she has restarted her anticoagulation. Please send results to primary cardiology team. documented in this encounter Plan of Treatment Upcoming Encounters Date Type Department Care Team (Late st Contact Info) Description 08/09/2024 10:45 AM EDT Office Visit Orthopedic Surgery - [place] 250 175 [facility] 250 [place] [phone] Dread Verde DPM [address] [address] 10/23/2024 2:00 PM EDT Ancillary Procedure [facility] - [facility] 154 300 [facility] 154 [place] [address] 11/28/2024 11:20 AM EDT Office Visit [facility] - [facility] 154 300 [facility] 154 [place] [address] Makenzie Pro MD 300 [place] [address] 01/03/2025 3:00 PM EDT Office Visit Internal Medicine - [place] 175 [facility] 200 [place] [address] Castro Cardoso MD [address] [address] documented as of this encounter Visit Diagnoses Not on filedocumented in this encounter Discontinued Medications Medication Sig Discontinue Reason Start Date End Da te spironolactone (ALDACTONE) 25 mg tablet Take 0.5 tablets (12.5 mg total) by mouth 1 (one) time each day. 07/19/2024 carvediloL (COREG) 6.25 mg tablet Take 2 tablets (12.5 mg total) by mouth 2 (two) times a day with meals. 06/06/2024 07/19/2024 documented as of this encounter Historical Medications * This list may reflect changes made after this encounter. spironolactone (ALDACTONE) 25 mg tablet Take 1 tablet (25 mg total) by mouth 1 (one) time each day. carvediloL (COREG) 6.25 mg tablet Take 3.125 mg by mouth 2 (two) times a day with meals. 07/31/2024 added in this encounter Care Teams [employer] Dean Relationship Specialty Start Date End Date Castro Cardoso MD [address] [address] PCP - General Internal Medicine 03/08/13 documented as of this encounter
--- OUTSIDE RECORDS SUMMARY | 2024-08-03 11:31 | XMS_ITS | Encounter Summary ---
Author Organization [facility] Address [address] [place] [address] Care Team Providers Care Cfd Engineer Name Role Phone Castro Cardoso MD Primary Care Provider [phone] Reason for Visit * Reason Onset Date Comments Medication 07/12/2024 Encounter Details Date Type Department Care Team (Late st Contact Info) Description 07/12/2024 Telephone [facility] [address] [place] [address] Dr Silveira [address] [place] [address] Jennifer Segundo NP [address] [place] [address] Dr Payne [address] [place] [address] Medication Social History Tobacco Use Types Packs/Day Years Used Date Smoking Tobacco: Former Cigarettes 0.5 36 0 04/04/1952 - 04/04/1988 Smokeless Tobacco: Never Alcohol Use Standard Drinks/Week Comments Not Currently 0 (1 standard drink = 0.6 oz pur e alcohol) Interpersonal Safety Answer Date Record ed Physical Abuse 07/13/2024 Verbal Abuse 07/13/2024 Comments No Sex and Gender Information Value Date Recorded Sex Assigned at Female 05/31/2024 11:41 AM EST Legal Sex Female 9:43 AM EST Gender Identity Female 05/31/2024 11:41 AM EST Sexual Orientation Straight 05/31/2024 11 :41 AM EST documented as of this encounter Progress Notes * Heather Jackson RN - 07/12/2024 9:51 AM EDT I spoke to Frank and informed him of the below message from Dileep Finn. He voiced understanding. * Mackenzie Finn NP - 07/12/2024 9:44 AM EDT Ok to hold for procedure tomorrow; she should resume it as soon as deemed safe by the surgeon post op. Thank you * Heather Jackson RN - 07/12/2024 9:16 AM EDT Madie Hernandez is a 89 y.o. female, followed by TEN Segundo, previously seen by Dr. Schreiber, with cardiac history of HFrEF, HTN, HLD, AFIB, SSS, and biventricular device. Patient's spouse is calling to see if patient may hold Eliquis today and tomorrow- pending a hammertoe correction left hallux surgery tomorrow. Dr. Verde advised pt should stop taking her Eliquis per today's telephone encounter (notes in Epic). Please advise. * Benny Machuca - 07/12/2024 8:58 AM EDT Frank calling to see if his can hold eliqius for today and tomorrow since Madie has a Procedure for her big toe with Dr Verde [facility]. If we can give a call back to let him know he would appreciate it. documented in this encounter Plan of Treatment Upcoming Encounters Date Type Department Care Team (Late st Contact Info) Description 08/09/2024 10:45 AM EDT Office Visit Orthopedic Surgery - [place] [address] [address] Dread Verde, DPM [address] [address] 10/23/2024 2:00 PM EDT Ancillary Procedure [facility] - [address] [place] [address] 11/28/2024 11:20 AM EDT Office Visit [facility] Cardiology [facility] [address] [facility] [address] [place] [address] Makenzie Pro MD [address] [place] [address] 01/03/2025 3:00 PM EDT Office Visit Internal Medicine - [place] [address] [facility] [address] [place] [address] Castro Cardoso MD 175 [facility] 200 [place] [address] documented as of this encounter Visit Diagnoses Not on filedocumented in this encounter Care Teams Cfd Engineer Relationship Specialty Start Date End Date Castro Cardoso MD [address] [facility] 200 [place] [address] PCP - General Internal Medicine 03/08/13 documented as of this encounter
--- OUTSIDE RECORDS SUMMARY | 2024-08-03 11:31 | XMS_ITS | Encounter Summary ---
Author Organization [facility] Address [address] [place] [address] Care Team Providers Care Associate Professor Of Physics Name Role Phone Castro Cardoso MD Primary Care Provider [phone] Reason for Visit * Reason Onset Date Comments Scheduling Nuclear Stress Test 08/01/2024 Encounter Details Date Type Department Care Team (Late st Contact Info) Description 08/01/2024 Telephone [facility] [address] [place] [address] Dr Silveira [address] [place] [address] Mackenzie Finn NP [address] [place] [address] [place] [address] Scheduling Nuclear Stress Test Social History Tobacco Use Types Packs/Day Years [...] as of this encounter Progress Notes * Nalini Patino - 08/01/2024 9:58 AM EDT I called the patient to schedule a nuclear stress test ordered by Mackenzie for her checkout today. She was unable to answer so I left a message on the machine with details and the number to call and schedule ather earliest convenience. documented in this encounter Plan of Treatment Upcoming Encounters Date Type Department Care Team (Late st Contact Info) Description 08/09/2024 10:45 AM EDT Office Visit Orthopedic Surgery - [place] 250 175 [facility] 250 [place] [address] Dread Verde DPCasi 175 [facility] 250 [place] [address] 10/23/2024 2:00 PM EDT Ancillary Procedure [facility]iology [facility] 154 300 [facility] 154 [place] [address] 11/28/2024 11:20 AM EDT Office Visit [facility] [address] [facility] 154 [place] [address] Makenzie Pro MD 300 [place] [address] 01/03/2025 3:00 PM EDT Office Visit Internal Medicine - [place] 175 [facility] 200 [place] [address] Castro Cardoso MD 175 [facility] 200 [place] [address] documented as of this encounter Visit Diagnoses Not on filedocumented in this encounter Care Teams Associate Professor Of Physics Relationship Specialty Start Date End Date Castro Cardoso MD 175 [facility] 200 [place] [address] PCP - General Internal Medicine 03/08/13 documented as of this encounter
--- OUTSIDE RECORDS SUMMARY | 2024-08-03 11:31 | XMS_ITS | Encounter Summary ---
Author Organization [facility] Address [address] [place] [address] Care Team Providers Care Scanning Clerk Name Role Phone Castro Cardoso MD Primary Care Provider [phone] Encounter Details Date Type Department Care Team ([facility] st Contact Info) Description 07/25/2024 Telephone Internal Medicine - [address] [place] [address] Shell Mosqueda [place] Social History Tobacco Use Types Packs/Day Years [...] as of this encounter Progress Notes * Kady Brown MA - 07/27/2024 1:29 PM EDT Spoke with joan , says it was approved. All set. * Castro Cardoso MD - 07/25/2024 4:19 PM EDT Okay verbally * Shell Mosqueda MA - 07/25/2024 2:12 PM EDT Joan from [facility] pre certification dept called asking provider she needs a verbal (yes or no) that its ok pt see's dr.sandeep rosado who is non contracted provider for vascular services.She mentions a referral is not needed because pt meets criteria but needs a verbal yes or no call back. Pls advise? documented in this encounter Plan of Treatment Upcoming Encounters Date Type Department Care Team (Late st Contact Info) Description 08/09/2024 10:45 AM EDT Office Visit Orthopedic Surgery - [place] 250 175 [facility] 250 [place] [address] Dread Verde DPM 175 [facility] 250 [place] [address] 10/23/2024 2:00 PM EDT Ancillary Procedure [facility] Cardiology [facility] [address] 300 [facility] 154 [place] [address] 11/28/2024 11:20 AM EDT Office Visit [facility] 154 300 [facility] 154 [place] [address] Makenzie Pro MD 300 [place] [address] 01/03/2025 3:00 PM EDT Office Visit Internal Medicine - [place] 175 [facility] 200 [place] [address] Castro Cardoso MD [address] [facility] 200 [place] [address] documented as of this encounter Visit Diagnoses Not on filedocumented in this encounter Care Teams Scanning Clerk Relationship Specialty Start Date End Date Castro Cardoso MD 175 [place] [address] PCP - General Internal Medicine 03/08/13 documented as of this encounter
--- OUTSIDE RECORDS SUMMARY | 2024-08-03 11:31 | XMS_ITS | Clinical Summary ---
Author Organization [facility] Address [address] [place] [address] Care Team Providers Care Plastics Engineering Teacher Name Role Phone Castro Cardoso MD Primary [...] age to complete this topic Care Teams Plastics Engineering Teacher Relationship Specialty Start Date End Date Castro Cardoso MD PCP - General Internal Medicine 05/03/23
== END 2024-08-03 11:23 | disposition home or self-care (01) ==
LOC: HO.HVS 10:27
PROVIDERS: PCP Internal Medicine; Visit Provider Surgery Vascular Surgery
DX: I83.11 Varicose veins of right lower extremity with inflammation (principal)
CPT/HCPCS: 36482

== ENCOUNTER → 2024-08-03 10:27 | Outpatient (BNVA) | payer MEDICARE, SELFPAY | PROVIDERS: PCP Internal Medicine; Visit Provider Surgery Vascular Surgery | DX: I83.11 Varicose veins of right lower extremity with inflammation (principal) | CPT/HCPCS: 36482; J2003 ==

== ENCOUNTER 2024-08-16 11:27 | Outpatient (AMB) | payer MEDICARE, SELFPAY ==
[2024-08-16 11:29] VITALS: BMI 30.7
--- NOTE | 2024-08-16 11:29 | MHC.OFFVIS ---
Vital Signs 08/16/24 11:29 Height 5 ft 6 in Weight 190 lb BMI 30.7 Intake Visit Reasons: 2 week follow up Right GSV Venaseal 08/03/24 Intake Note: 2 week follow up Right GSV Venaseal 08/03/24. Pt states some bruising. Pt states swelling has started to decrease. Systems Software Developer Required: No Accompanied by: Self / Same As Patient Allergies Qthweoa-VVJ-KrS Reductase Inhibitor [OVALKKU-JXM-RDR REDUCTASE INHIBITOR] Adverse Reaction (Severe, Verified 08/16/24 11:31) BODY ACHES amoxicillin Adverse Reaction (Mild, Verified 08/16/24 11:31) Diarrhea HPI HPI 2 week follow up Right GSV Venaseal 08/03/24: Details: The patient is an 89-year-old female presenting with great saphenous vein insufficiency. She returns for a follow-up visit following a procedure targeting this issue. Initially suffering from notable swelling and discomfort in her right leg, the procedure was performed to reduce these symptoms by sealing part of the affected vein. Post-procedural outcomes have been positive, with the patient indicating noticeable improvements, including reduced swelling. She now presents for routine postprocedure follow-up. 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 Social History Household Members: Spouse Housing: House Alcohol intake: current Alcohol intake frequency: holidays/special occasions only Patient Tobacco Use Status: Never used Tobacco Review of Systems Const Reports as per HPI ENT Reports no additional complaints Card Denies chest pain, Denies chest pain at rest and Denies chest pain with activity Resp Denies chest congestion and Denies cough GI Reports no additional complaints Musc Details: pain over varicosities, aching of lower extremities, swelling, cramping, heaviness and tiredness, itching Denies abnormal gait Skin/Breast Reports pruritus and Denies wounds Neuro Reports no additional complaints and Denies abnormal gait Psych Denies no additional complaints Physical Exam Vital Signs: BMI result Body Mass Index 30.7 Const General: cooperative, healthy appearing and comfortable Orientation/consciousness: oriented to person, oriented to place and oriented to time Neck Carotids: no bruits Chest Chest palpation & inspection: normal inspection of the chest and normal palpation of entire chest wall Resp Effort & Inspection: normal respiratory effort and able to speak in complete sentences Cardio Rate: regular rate Heart sounds: S1 normal heart sound present and S2 normal heart sound present Peripheral pulses: Peripheral pulses 2+ throughout GI Inspection: Yes normal to inspection Skin Other: +2 edema, large rope-like varicosities greater than 4 mm CEAP Classification C4 - skin color changes Ep - Etiology Primary As - superficial veins P - reflux General skin exam: dry skin Neuro General: oriented to person, oriented to place and oriented to time Extrem Right lower extremity: full ROM, normal capillary refill and edema Left lower extremity: full ROM, normal capillary refill and edema Psych Mental Status: mental status grossly normal Assessment & Plan Assessment & Plan (1) PAD (peripheral artery disease): Comment: 01/02/2015 - left SFA stent and left popliteal plasty with DCB 07/22/2021 - atherectomy and stent of right SFA Code(s): I73.9 - Peripheral vascular disease, unspecified Category: Medical Plan: She is scheduled for annual surveillance follow-up which is due in April. (2) Varicose veins of right lower extremity with inflammation: Comment: 08/03/2024 - right great saphenous vein Cyanoacralate ablation Code(s): I83.11 - Varicose veins of right lower extremity with inflammation Category: Medical Plan: During our discussion, I elaborated on the successful outcome of the recent procedure meant to address the great saphenous vein insufficiency, resulting in reduced leg swelling. We reviewed the management plan, which entails regular arterial health monitoring with ultrasounds scheduled annually, in April or May. I emphasized the importance of periodic reassessment to manage any potential symptom progression effectively. The patient was informed that she should return in 6-7 months for further evaluation of her conditions and surgical healing progress. She currently does not require alternative interventions, and the plan was agreed upon with her full understanding and compliance. Coding Level of Care Code Est Pt Level 3 (22194) Diagnoses PAD (peripheral artery disease) I73.9 Varicose veins of right lower extremity with inflammation I83.11
--- OUTSIDE RECORDS SUMMARY | 2024-08-16 12:35 | XMS_ITS | Patient Health Record ---
[facility] Organization [facility] Address [address] [place] [address] Care Team Providers Care Biomedical Instrument Technician Name Role Phone Walker EVANS, Castro Primary Care Provider Unavailab Kenneth Rosales Unavailable [phone] Mehreen Grossman Unavailable [phone] Allergies Allergen (clinical drug ingredient) Drug/Non Drug [...] primary osteoarthritis of the ankle and/or foot (115189604) Primary osteoarthritis, left ankle and foot (M19.072) Active confirmed Problem Ataxic gait (04204249) Ataxic gait (R26.0) Active confirmed Problem Bilateral atherosclerosis of arteries of lower limbs (disorder) (42013284328212076 ) Unspecified atherosclerosis of solomon arteries of extremities, bilateral legs (I70.203) Active confirmed Problem Non-pressure chronic ulcer of other part of left foot limited to breakdown of skin (L97.521) Active confirmed Problem Acquired hammer toe of left foot (7559665345333053) Other hammer toe(s) (acquired), left foot (M20.42) Active confirmed Problem Acquired hammer toe of left foot (0058931537426899) Other hammer toe(s) (acquired), left foot (M20.42) Active confirmed Vital Signs Height 5 ft 7 in in 11/22/2023 Weight 200 lbs 11/22/2023 BMI 31.32 kg/m2 11/22/2023 Encounters Encounter Location Date Provider Diagnosis [facility] [address] 09/20/2023 Kenneth Verde 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 ; Pain in left toe(s) M79.675 ; Primary osteoarthritis, left ankle and foot M19.072 ; Unspecified atherosclerosis of solomon arteries of extremities, bilateral legs I70.203 and Other hammer toe(s) (acquired), left foot M20.[address] [facility] [address] 10/25/2023 Kenneth Verde 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 ; Pain in left toe(s) M79.675 ; Primary osteoarthritis, left ankle and foot M19.072 ; Unspecified atherosclerosis of solomon arteries of extremities, bilateral legs I70.203 and Other hammer toe(s) (acquired), left foot M20.42 [facility] [address] [address] 11/22/2023 Kenneth Verde 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 ; Pain in left toe(s) M79.675 ; Primary osteoarthritis, left ankle and foot M19.072 ; Unspecified atherosclerosis of solomon arteries of extremities, bilateral legs I70.203 and Other hammer toe(s) (acquired), left foot M20.42 [place] [id number] [address] [address] 06/27/2024 Kenneth Verde Assessments Encounter Date Diagnosis [...] (ICD-10 - M19.072) 09/20/2023 Unspecified atherosclerosis of solomon arteries of extremities, bilateral legs (ICD-10 - I70.203) 10/25/2023 Unspecified atherosclerosis of solomon arteries of extremities, bilateral legs (ICD-10 - I70.203) 11/22/2023 Unspecified atherosclerosis of solomon arteries of extremities, bilateral legs (ICD-10 - [...] X ray : Foot, left 3V 09/20/2023 83826-EXDAYEF NAIL, 6 OR MORE 11/12/2016 69562-MZJKOUZ NAIL, 6 OR MORE 08/15/2015 40749-FXAKVQP NAIL, 6 OR MORE 11/07/2015 61056-HTQUWDH NAIL, 6 OR MORE 04/06/2016 36313-CJRCNIR NAIL, 6 OR MORE 05/30/2015 56974-QFLGEXI NAIL, 6 OR MORE 04/29/2015 59776-Ferwiify Plate 04/29/2015 02456-Ppzosmku Plate 04/06/2016 09192-Kdhmwwst Plate 11/12/2016 59510- Debride <25 sq cm 04/29/2015 75276- Debride <25 sq cm 05/30/2015 76287- Debride <25 sq cm 2015 09431-VSXJQNY SKIN/TISSUE 01/25/2023 75989-EPWDNYC SKIN/TISSUE 05/15/2019 11451-QQGD SKIN LESIONS, 2 TO 4 07/21/19 10473-Jybx. Subungual Hematoma 4 13194-TUVKCUIG OF HEMATOMA/FLUID 022 97481,E8742-ASF TENDON SHEATH/LIGAMENT 0 2015 Insurance Providers Payer Name Payer Address Payer Phone Subscriber Number Group Number Insured Name Patient Relationship to Insured Coverage Start Date Coverage End Date [employer] Preferred [address] [place] [address] [phone] [id number] Madie Hernandez Self - patient is the [...] Reason Date(Month/Year) [facility] - Quadruple Bypass 10/07/14 [facility] [place] - Stent left leg due to DVT 01/10/15 [facility] [place] - Foot Cellulitis- Picc line inserte d 03/04/15
--- OUTSIDE RECORDS SUMMARY | 2024-08-16 12:35 | XMS_ITS ---
Author Organization [facility] Address [address] [place] [address] Care Team Providers Care Cattle Knocker Name Role Phone Castro Cardoso MD Primary Care Provider Kenneth Barber Unavailable [phone] Allergies Allergen (clinical drug ingredient) Drug/Non Drug [...] 11/22/2023 Encounters Encounter Location Date Provider Diagnosis [facility] [place] [address] [address] 11/22/2023 Kenneth Verde 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 ; Pain in left toe(s) M79.675 ; Primary osteoarthritis, left ankle and foot M19.072 ; Unspecified atherosclerosis of [place] arteries of extremities, bilateral legs I70.203 and [...] (ICD-10 - M19.072) 11/22/2023 Unspecified atherosclerosis of [place] pine arteries of extremities, bilateral legs (ICD-10 - I70.203) 11/22/2023 Other hammer toe(s) (acquired), left foot (ICD-10 - M20.42) Plan Of Treatment Next Appt Details Follow Up: prn, Reason: Progress Notes * Madie HERNANDEZDOB:1935 (88 yo F)Acc No.[id number]:11/22/2023 Progress Notes Patient:?Eliseomee Madie Kathy Provider:?Kenneth Verde DPM :1935???Age:88 Y???Sex:Female D ate:11/22/2023 Address:[address] , [id number] Pcp:Castro Cardoso MD Subjective: * Chief Complaints: [...] ankle and foot - M19.072?4.?Unspecified atherosclerosis of [place] arteries of extremities, bilateral legs - I70.203?5.?Other [...] DPM Date:? 024 Generated for Duane hui/Ivette/Eliud on:?08/16/2024 12:35 PM EDT History and Physical Notes * [...]
--- OUTSIDE RECORDS SUMMARY | 2024-08-16 12:35 | XMS_ITS | Clinical Summary ---
Author Organization [facility] Address [address] [place] [address] Phone Care Team Providers Care Securities Sales Associate Name Role Phone Castro Cardoso MD Primary Care Provider [phone] Allergies Active Allergy Reactions Criticality Noted Date Comments Amoxicillin Diarrhea High 07/20/2021 Cfdvbhz-Kbo-Iak Reductase Inhibitors Pain High 09/01/2022 Other reaction(s): [...] 180 tablet 1 06/07/19 25 2024 Discontinued acetaminophen (TYLENOL 8 HOUR) 650 mg 8 [...] left foot, w ith fat layer exposed (CMS/HCC V24, CMS/HCC V28) 04/16/2024 Atrial fibrillation (CMS/HCC V24, CMS/HCC V28) 1 04/16/2023 Assessment & Plan (07/31/2024 [...] (heart failure with re duced ejection fraction) ([facility] V24, [facility] V28) 03/07/2023 Assessment & Plan (07/31/2024 10:59 [...] schedule. Hold Imdur. SSS (sick sinus syndrome) ([facility] V24, [facility] V28) 07/16/2021 Assessment & Plan (07/31/2024 10:59 [...] 05/02/2020 Overview (04/18/2024): Patient has a dual-chamber [employer] pacemaker in place model number #K173, serial #[id number]. The RV lead is a [employer] model #1888TC-52, serial [id number]. The RA lead is a [employer] model number #1888TC-46, serial #[id number]. Assessment & Plan (07/31/2024 10:59 AM EDT): Continues with remote monitoring and routine visits to our device clinic. Type 2 diabetes mellitus wit h complication, without long-term current use of insulin ([facility] V24, [facility] V28) 05/31/2018 Seborrheic keratosis 02/22/2018 Resolved Problems [...] Encounters Date Type Department Care Team Description 08/09/2024 10:45 AM EDT Office Visit Orthopedic Surgery [place] [address] [phone] Dread Verde, DPM Post-operative state (Primary Dx); Ingrowing nail; Dermatophytosis of nail; Diabetic mononeuropathy simplex (CMS/HCC V24, CMS/HCC V28); Type II diabetes mellitus with peripheral circulatory disorder (CMS/HCC V24, CMS/HCC V28); Pain in toe of right foot; Pain in toe of left foot 08/01/2024 Telephone [facility] [address] [place] [address] Mackenzie Finn NP Scheduling Nuclear Stress Test 07/31/2024 10:10 AM EDT Office Visit [facility] [address] [place] [address] Jennifer Segundo NP HFrEF (heart failure with reduced ejection fraction) (CMS/HCC V24, CMS/HCC V28) (Primary Dx); Coronary artery disease involving [place] coronary artery of [place] heart without angina pectoris; Paroxysmal atrial fibrillation (CMS/HCC V24, CMS/HCC V28); Primary hypertension; Pacemaker; SSS (sick sinus syndrome) (CMS/HCC V24, CMS/HCC V28); Mixed hyperlipidemia 07/26/2024 9:45 AM EDT Office Visit Orthopedic [facility] [address] [phone] Dread Verde DPM Post-operative state (Primary Dx) 07/25/2024 Telephone Internal Medicine [facility] 175 [facility] [address] [place] [phone] Shell Mosqueda CO 07/19/2024 10:40 AM EDT Ancillary Procedure [facility] [address] [address] [place] [phone] 07/19/2024 Telephone [facility] [address] [place] [phone] Miranda Beaulieu NP 07/19/2024 Telephone Internal Medicine [facility] 175 [facility] [address] [place] [phone] Castro Cardoso MD Referral (Cardiology Insurance Referral) 07/13/2024 9:01 AM EDT Anesthesia Event [facility] [place] [address] [place] [phone] Kassie Delgado MD Hard, Shannon, CRNA 07/13/2024 9:00 AM EDT - 07/13/2024 10:30 AM EDT Surgery [facility] [place] [address] [place] [phone] Dread Verde DPM REPAIR LEFT GREAT TOE HAMMER TOE, RESECTION PARTIAL PHALANX LEFT GREAT TOE [96915 (CPT??)] 07/13/2024 7:38 AM EDT - 07/13/2024 10:56 AM EDT Hospital Encounter [facility] [place] [address] [place] [phone] Dread Verde, DPM Hammer toe of left foot; Ulcer of toe of left foot, with fat layer exposed ([facility] V24, [facility] V28) Discharge Disposition: Home or Self Care 07/12/2024 Telephone [facility] [address] [place] [phone] Jennifer Segundo NP Medication 07/12/2024 Telephone Orthopedic Surgery [facility] [address] [phone] Dread Verde DPM Medicarion question 07/11/2024 Telephone [facility] [address] [phone] Chitra Carter 07/10/2024 8:00 AM EDT Consult Orthopedic [place] [address] [phone] Dread Verde DPM Hammer toe of left foot (Primary Dx) 07/06/2024 4:55 PM EDT Ancillary Procedure [facility] [address] [phone] 07/04/2024 10:00 AM EDT Consult Internal Medicine [facility] [address] [phone] Castro Cardoso MD Preop examination (Primary Dx); Primary hypertension; HFrEF (heart failure with reduced ejection fraction) (CMS/HCC V24, CMS/HCC V28); Hypercholesterolemia 06/29/2024 Telephone Orthopedic [place] [address] [phone] Dread Verde DPM Medication 06/28/2024 2:45 PM EDT Office Visit Orthopedic [facility] [address] [phone] Dread Verde DPM Cellulitis of left foot (Primary Dx); Ulcer of toe of left foot, with fat layer exposed (CMS/HCC V24, CMS/HCC V28); Ingrowing nail; Hammer toe of left foot 06/12/2024 Telephone Internal Medicine [facility] [address] [phone] Castro Cardoso MD 06/06/2024 3:30 PM EST Ancillary Procedure [facility] 154 300 [facility] 154 [place] [address] Encounter for adjustment or management of cardiac device 06/06/2024 2:40 PM EST Office Visit [facility] [address] [place] [phone] Jennifer Segundo NP HFrEF (heart failure with reduced ejection fraction) (CMS/HCC V24, CMS/HCC V28) (Primary Dx); Pacemaker; Coronary artery disease involving [place] coronary artery of [place] heart without angina pectoris; Primary hypertension; SSS (sick sinus syndrome) (CMS/HCC V24, CMS/HCC V28); Paroxysmal atrial fibrillation (CMS/HCC V24, CMS/HCC V28) 06/04/2024 Telephone [facility] [address] [place] [phone] Jennifer Segundo NP TOOTH EXTRACTION 05/31/2024 10:46 AM EST - 06/01/2024 5:15 PM EST Hospital Encounter [facility] Emergency [address] [place] [phone] Dionicio Zhou MD Flores, Carlos M, MD Bell, Alistair A, MD Syncope and collapse (Primary Dx); Syncope, unspecified syncope type Discharge Disposition: Home or Self Care from [...] disease); COMMENT: status post bypass surgery A-fib ([facility] V[facility], [facility] V28) DX:A-fib ([facility]); COMMENT: on coumadin Sick sinus syndrome ([facility] V[facility], [facility] V28) DX:Sick sinus syndrome ([facility]) ; COMMENT: with a dual chamber pacemaker in place. Peripheral vascular disease ([facility] V[facility]) DX:Peripheral vascular disease ([facility]) PAF (paroxysmal atrial fibri llation) ([facility] V[facility], [facility] V28) DX:PAF (paroxysmal atrial fibrillation) ([facility]) Plantar fasciitis DX:Plantar fas ciitis Claudication ([facility] V24) DX:Cl audication ([facility]) Family History Medical History Relation Name Comments [...] Care Team (Late st Contact Info) Description 10/09/2024 2:45 PM EDT Office Visit [facility]opedic [facility] 250 175 [facility] 250 [place] [phone] Dread Verde DPM [address] [address] 10/23/2024 2:00 PM EDT Ancillary Procedure [facility] 154 300 [facility] 154 [place] [address] 11/28/2024 11:20 AM EDT Office Visit [facility] 154 300 [facility] 154 [place] [address] Makenzie Pro MD [address] [place] [address] 01/03/2025 3:00 PM EDT Office Visit Internal Medicine [facility] 175 [facility] 200 [place] [phone] Castro Cardoso MD 175 [facility] 200 [place] [address] Health Maintenance Due Date Last Done Comments [...] this topic Medical Devices Implanted Type Area Fire Support Man Device Identifier Shelf Expiration Date Model / Serial / Lot Abbt-Stju 2272 Assurity Mri(Tm) [id number] Implanted: (Quantity not on file) Cardiac Pacemaker [facility] [employer] 2272 ASSURITY MRI(TM) / [id number] / Procedures Procedure Name Priority Date/Time Associated Diagnosis Comments XR FOOT 3+ VIEWS LEFT Routine 08/09/2024 11:07 AM EDT Post-operative state XR FOOT 3+ VIEWS LEFT Routine 07/26/2024 [...] fat layer exposed (CMS/HCC V24, CMS/HCC V28) ND CORRECTION HAMMERTOE 07/13/2024 9:00 AM EDT Hammer [...] CONTRAST STAT 05/31/2024 1 2:59 PM EST [id number], RSV, FLU A AND B QUALITATIVE RT-PCR, [...] ECG 12-LEAD STAT 05/31/2024 11:22 AM EST LIPID PANEL WITH REFLEX TO DIRECT LDL Routine 04/06/2024 12:10 PM EST Longstanding persistent atrial fibrillation (CMS/HCC V24, CMS/HCC V28) Hypercholesterolemia Congestive heart failure, unspecified HF chronicity, unspecified heart failure type (CMS/HCC V24, CMS/HCC V28) HEMOGLOBIN A1C Routine 04/06/2023 from Last 3 Months or Most Recently Relevant to Health Maintenance Results * XR Foot 3+ Views Left (08/09/2024 11:07 AM EDT) Only the most recent of3 resultswithin the time period is included. Anatomical Region Laterality Modality Lower Extremities, Foot Left Computed Radiography Narrative 08/09/2024 12:11 PM EDT Left foot 3 views Stable postoperative changes us Dread Verde DPM IMG XR PROCEDURES Final R esult * Cardiac device check - Remote- MURJ (07/19/2024 10:39 AM EDT) Only the most recent of2 resultswithin the time period is included. Date Time Interrogation Session [id number] CV DEVICE CHECK Type Interrogation Session Remote Scheduled CV DEVICE CHECK Implantable Pulse Generator Fire Support Man [employer] CV DEVICE CHECK Implantable Pulse Generator Type IPG CV DEVICE CHECK Implantable Pulse Generator Model 2272 Assurity MRI(TM) CV DEVICE CHECK Implantable Pulse Generator Serial Number [id number] CV DEVICE CHECK Implantable Pulse Generator Implant Date 20221001 CV DEVICE CHECK Battery Remaining Percentage 79.00 CV DEVICE CHECK Battery Remaining Longevity 56.0 CV DEVICE CHECK Battery Voltage 2.990 CV D EVICE CHECK Battery S[employer] RELATIONS COORDINATOR Trigger 2.600 CV DEVICE CHECK Battery Status Middle of Service CV DEVICE CHECK Nate Statistic RA Percent Paced 91.00 CV DEVICE CHECK Nate Statistic RV Percent Paced 99.00 CV DEVICE CHECK Atrial Tachy Statistic AT/AF Stryker Percent 4.00 CV DEVICE CHECK Lead Channel [...] Impressions 07/19/2024 10:37 AM EDT Increased AF Stryker AF Alerts are off * Device diagnostics indicate increased AF burden since last check * Current AT/AF Stryker: Ongoing since 07/14/24 / Rate Controlled / Meds include Coumadin * Prior AT/AF Stryker: ?? Narrative Procedure Note Miranda Beaulieu NP - 07/19/2024 IMPRESSION: Increased AF Stryker AF Alerts are off * Device diagnostics indicate increased AF burden since last check * Current AT/AF Stryker: Ongoing since 07/14/24 / Rate Controlled / Medsinclude Coumadin * Prior AT/AF Stryker: us Miranda Beaulieu NP CV IMPLANTABLE CARDIAC DEVICE PROCEDURES Final Result * Culture wound deep (07/13/2024 9:30 AM EDT) Culture, Wound No growth at 3 days 07/16/2024 10:36 AM EDT [facility] Gram Stain Result No polymorphonuclear leukocytes, No epithelial cells, and No organisms noted 07/16/2024 10:36 AM EDT [facility] Swab Structure of left foot / Unknown 07/13/2024 9:30 AM EDT 07/13/2024 10:09 AM EDT Dread Verde DPM LAB MICROBIOLOGY - GENERA L ORDERABLES Final Result [facility] [address] [place] [address], * Tissue exam (07/13/2024 9:28 AM EDT) Final Diagnosis Bone, Left great toe phalanx-reapair hammertoe: -DEGENERATIVE OSTEOARTHROPATHY, CONSISTENT WITH HAMMERTOE DEFORMITY/ EXOSTOSIS 07/17/2024 12:01 PM EDT [facility] Gross Description A. Foot, Left, Exostosis great toe phalanx: Labeled exostosis foot L . Received in formalin is a 1.8 x 1.2 x 0.5 cm portion of yellow indurated bone with attached soft, crow-pink to red tissue. The articular surfaces smooth and red to white. The specimen is sectioned and a personnel representative section is submitted in one cassette, one piece, following decalcification. TS 07/17/2024 12:01 PM EDT [facility] Disclaimer Unless otherwise specified, all tissue is 10% NB formalin fixed and paraffin embedded. 07/17/2024 12:01 PM EDT [facility] Tissue Structure of left foot / Unknown 07/13/2024 9:28 AM EDT 07/13/2024 10:53 AM EDT Dread Vrede DPM LAB PATHOLOGY ORDERABLES Final Result [facility] [address] [place] [address], [place] [phone] * External Vascular Ultrasound (06/28/2024) Only the most recent of2 resultswithin the time period is included. Anatomical Region Laterality Modality Ultrasound us Provider [facility] CV VASCULAR PROCEDURES F inal Result * CARDIAC DEVICE CHECK- IN CLINIC- MURJ (06/27/2024 1:06 PM EDT) Date Time Interrogation Session [id number] CV DEVICE CHECK Implantable Pulse Generator Fire Support Man [employer] CV DEVICE CHECK Implantable Pulse Generator Type IPG CV DEVICE CHECK Implantable Pulse Generator Model 2272 Assurity MRI(TM) CV DEVICE CHECK Implantable Pulse Generator Serial Number [id number] CV DEVICE CHECK Implantable Pulse Generator Implant Date 20221001 CV DEVICE CHECK Battery Status Middle of Service CV DEVICE CHECK Nate Statistic RA Percent Paced 94.00 CV DEVICE CHECK Nate Statistic RV Percent Paced 99.00 CV DEVICE CHECK Atrial Tachy Statistic AT/AF Stryker Percent 1.00 CV DEVICE CHECK Lead Channel [...] in ER * Presenting rhythm: AP - REEL OPERATOR 60's * Heart Rate Histograms reviewed * Device Function and programmed parameters reviewed * AMS event documented (EGM suggestive of PAT with small amount of noise Narrative Procedure Note Kassie Fairchild MD - 06/27/2024 IMPRESSION: Hospital Check * Patient was seen in hospital by * Reason: Pt in ER * Presenting rhythm: AP - REEL OPERATOR 60's * Heart Rate Histograms reviewed [...] Signed Date: 06/01/2024 16:22 ET Workstation ID: [id number] Transcribed By: Self Edit Transcribed Date: 06/01/2024 [...] Signed Date: 06/01/2024 16:22 ET Workstation ID: [id number] Transcribed By: Self Edit Transcribed Date: 06/01/2024 16:21 ET Romario Rich MD CV VASCULAR PROCEDURES Final Result * (ABNORMAL) TRANSTHORACIC ECHOCARDIOGRAM (TTE) COMPLETE W/ CONTRAST (06/01/2024 9:59 AM EST) Left Atrium Minor Hastings 6.8 cm CV PACS Left Atrium Major Hastings 6.1 cm CV PACS LA Area Sys [...] Area 2.8 cm2 CV PACS MV Deceleration Perkins 4.8 m/s2 CV PACS E Wave Deceleration [...] resultswithin the time period is included. Pathologist [facility] WBC 9.1 4.8 - 10.8 K/mcL LAB HEMETOLOGY METHOD 06/01/2024 7:[address] [facility] RBC 3.90 3.80 - 4.80 M/mcL LAB HEMETOLOGY METHOD 06/01/2024 7:[address] [facility] Hemoglobin 12.0 11.5 - 16.0 g/dL LAB HEMETOLOGY METHOD 06/01/2024 7:[address] [facility] Hematocrit 38.2 35.0 - 47.0 % LAB HEMETOLOGY METHOD 06/01/2024 7:[address] [facility] MCV 99.2(H) 79.0 - 98.0 FL LAB HEMETOLOGY METHOD 06/01/2024 7:[address] [facility] MCH 31.2 27.0 - 32.0 pcg LAB HEMETOLOGY METHOD 06/01/2024 7:[address] [facility] MCHC 31.4(L) 32.0 - 37.0 g/dL LAB HEMETOLOGY METHOD 06/01/2024 7:[address] [facility] RDW 14.0 11.0 - 15.0 % LAB HEMETOLOGY METHOD 06/01/2024 7:[address] [facility] Platelets 193 130 - 400 K/mcL LAB HEMETOLOGY METHOD 06/01/2024 7:[address] [facility] MPV 11.4(H) 7.0 - 11.0 FL LAB HEMETOLOGY METHOD 06/01/2024 7:[address] [facility] NRBC 0.0 <1.0 % LAB HEMETOLOGY METHOD 06/01/2024 7:[address] [facility] NRBC Absolute 0.00 <0.10 K/mcL LAB HEMETOLOGY METHOD 06/01/2024 7:[address] [facility] Neutrophils Relative 70.3 % LAB HEMETOLOGY METHOD 06/01/2024 7:[address] [facility] Lymphocytes Relative 18.8 % LAB HEMETOLOGY METHOD 06/01/2024 7:[address] [facility] Monocytes Relative 8.4 % LAB HEMETOLOGY METHOD 06/01/2024 7:[address] [facility] Eosinophils Relative 2.0 % LAB HEMETOLOGY METHOD 06/01/2024 7:[address] [facility] Basophils Relative 0.2 % LAB HEMETOLOGY METHOD 06/01/2024 7:[address] [facility] Immature Granulocytes Relative 0.3 % LAB HEMETOLOGY METHOD 06/01/2024 7:[address] [facility] Neutrophils Absolute 6.42 1.50 - 7.00 K/mcL LAB HEMETOLOGY METHOD 06/01/2024 7:[address] [facility] Lymphocytes Absolute 1.72 1.00 - 5.00 K/mcL LAB HEMETOLOGY METHOD 06/01/2024 7:[address] [facility] Monocytes Absolute 0.77 0.20 - 1.00 K/mcL LAB HEMETOLOGY METHOD 06/01/2024 7:[address] [facility] Eosinophils Absolute 0.18 0.00 - 0.50 K/mcL LAB HEMETOLOGY METHOD 06/01/2024 7:[address] [facility] Basophils Absolute 0.02 0.00 - 0.20 K/[facility] LAB HEMETOLOGY METHOD 06/01/2024 7:56 AM EST [facility] Immature Granulocytes Absolute 0.03 0.00 - 0.03 K/[facility] LAB HEMETOLOGY METHOD 06/01/2024 7:56 AM EST [facility] Blood Venous blood specimen / Unknown Venipuncture / Unknown 06/01/2024 7:37 AM EST 06/01/2024 7:42 AM EST Stephen Gray MD LAB BLOOD ORDERABLES Final Re sult Performing Organization Address [facility]/ZIP Co de Phone Number [facility] [address] [place] [address], [place] [phone] * (ABNORMAL) Prothrombin time with INR (06/01/2024 7:37 AM EST) Protime 21.5(H) 10.6 - 13.9 sec LAB COAGULATION METHOD 06/01/2024 7:58 AM EST [facility] INR 1.7 LAB COAGULATION METHOD 06/01/2024 7:[address] [facility] Blood Venous blood specimen / Unknown Venipuncture / Unknown 06/01/2024 7:37 AM EST 06/01/2024 7:42 AM EST Terra Garcia NP LAB BLOOD ORDERABLES Fin al Result Performing Organization Address [facility]/ZIP Co de Phone Number [facility] [address] [place] [address], [place] [phone] * Magnesium (06/01/2024 7:37 AM EST) Only the most recent of2 resultswithin the time period is included. Magnesium 2.6 1.9 - 2.6 mg/dL LAB CHEMISTRY METHOD 06/01/2024 8:27 AM EST [facility] Blood Venous blood specimen / Unknown Venipuncture / Unknown 06/01/2024 7:37 AM EST 06/01/2024 7:42 AM EST Stephen Gray MD LAB BLOOD ORDERABLES Final Re sult [facility] [address] [place] [address], * (ABNORMAL) Basic metabolic panel (06/01/2024 7:37 AM EST) Sodium 137 133 - 145 mmol/L LAB CHEMISTRY METHOD 06/01/2024 9:[address] [facility] Potassium 4.4 3.5 - 5.5 mmol/L LAB CHEMISTRY METHOD 06/01/2024 9:[address] [facility] Chloride 105 96 - 110 mmol/L LAB CHEMISTRY METHOD 06/01/2024 9:[address] [facility] CO2 27 21 - 32 mmol/L LAB CHEMISTRY METHOD 06/01/2024 9:[address] [facility] Anion Gap 5 3 - 11 LAB CHEMISTRY METHOD 06/01/2024 9:[address] [facility] Glucose 104(H) 70 - 100 mg/dL LAB CHEMISTRY METHOD 06/01/2024 9:[address] [facility] BUN 38(H) 5 - 25 mg/dL LAB CHEMISTRY METHOD 06/01/2024 9:[address] [facility] Creatinine 1.25(H) 0.50 - 1.10 mg/dL LAB CHEMISTRY METHOD 06/01/2024 9:[address] [facility] eGFR 42(L) >=60 mL/min/1. 73m2 LAB CHEMISTRY METHOD 06/01/2024 9:[address] [facility] Comment:Calculation based on the??Chronic Kidney Disease Epidemiology Collaboration (CKD-EPI) equation refit??without adjustment for race. BUN/Creatinine Ratio 30.4 LAB CHEMISTRY METHOD 06/01/2024 9:[address] [facility] Calcium 9.5 8.5 - 10.5 mg/dL LAB CHEMISTRY METHOD 06/01/2024 9:[address] [facility] Blood Venous blood specimen / Unknown Venipuncture / Unknown 06/01/2024 7:37 AM EST 06/01/2024 7:42 AM EST us Stephen Gray MD LAB BLOOD ORDERABLES Final Re sult [facility] [address] [place] [address], [place] [phone] * (ABNORMAL) Urinalysis with reflex microscopic and culture (05/31/2024 10:39 PM EST) Specific [place] Urine 1.017 1.003 - 1.030 LAB URINALYSIS - AUTOMATED METHOD 05/31/2024 11:[address] [facility] pH, Urine 5.5 5.0 - 8.0 pH LAB URINALYSIS - AUTOMATED METHOD 05/31/2024 11:[address] [facility] Leukocytes, Urine Trace(A) Negative LAB URINALYSIS - AUTOMATED METHOD 05/31/2024 11:[address] [facility] Nitrite, Urine Negative Negative LAB URINALYSIS - AUTOMATED METHOD 05/31/2024 11:[address] [facility] Protein, Urine Negative <=Trace mg/dL LAB URINALYSIS - AUTOMATED METHOD 05/31/2024 11:[address] [facility] Glucose, Urine >=1000(A) Negative mg/dL LAB URINALYSIS - AUTOMATED METHOD 05/31/2024 11:[address] [facility] Ketones, Urine Negative Negative mg/dL LAB URINALYSIS - AUTOMATED METHOD 05/31/2024 11:[address] [facility] Urobilinogen , Urine 0.2 0.2 - 1.0 mg/dL LAB URINALYSIS - AUTOMATED METHOD 05/31/2024 11:[address] [facility] Bilirubin, Urine Negative Negative LAB URINALYSIS - AUTOMATED METHOD 05/31/2024 11:[address] [facility] Blood, Urine Negative Negative LAB URINALYSIS - AUTOMATED METHOD 05/31/2024 11:[address] [facility] RBC, Urine 1.2 0 - 4 /HPF LAB URINALYSIS - AUTOMATED METHOD 05/31/2024 11:[address] [facility] WBC, Urine 7.1(H) 0 - 4 /HPF LAB URINALYSIS - AUTOMATED METHOD 05/31/2024 11:[address] [facility] Squamous Epithelial, Urine 35 0 - 60 /LPF LAB URINALYSIS - AUTOMATED METHOD 05/31/2024 11:[address] [facility] Bacteria, Urine Negative Negative /HPF LAB URINALYSIS - AUTOMATED METHOD 05/31/2024 11:[address] [facility] Hyaline Casts, Urine 1.2 0 - 3 /LPF LAB URINALYSIS - AUTOMATED METHOD 05/31/2024 11:[address] [facility] Urine Urine specimen obtained by clean catch procedure / Unknown Non-blood Collection / Unknown 05/31/2024 10:39 PM EST 05/31/2024 11:01 PM EST us Dionicio Zhou MD LAB URINE ORDERABLES Final Re sult [facility] [address] [place] [address], * Mitchell urine culture tube (05/31/2024 10:39 PM EST) Extra Tube Hold for add-ons. 06/01/2024 1:[address] [facility] Comment:Auto resulted. Urine Urine specimen obtained by clean catch procedure / Unknown Non-blood Collection / Unknown 05/31/2024 10:39 PM EST 05/31/2024 11:01 PM EST Dionicio Zhou MD LAB URINE ORDERABLES Final Re sult Performing Organization Address [facility]/ZIP Co de Phone Number [facility] [address] [place] [address], [place] [phone] * Culture urine (05/31/2024 10:39 PM EST) Culture, Urine <10,000 cfu/ml, insignificant count, no further workup. 06/02/2024 10:22 AM EST [facility] Urine Urine specimen obtained by clean catch procedure / Unknown Non-blood Collection / Unknown 05/31/2024 10:39 PM EST 05/31/2024 11:32 PM EST Dionicio Zhou MD LAB MICROBIOLOGY - GENERAL OR DERABLES Final Result Performing Organization Address [facility] de Phone Number [facility] [address] [place] [address], [place] [phone] * XR Chest 1 View (05/31/2024 3:33 [...] Signed Date: 05/31/2024 15:53 ET Workstation ID: [id number] Transcribed By: Self Edit Transcribed Date: 05/31/2024 [...] Signed Date: 05/31/2024 15:53 ET Workstation ID: [id number] Transcribed By: Self Edit Transcribed Date: 05/31/2024 15:52 ET us Dionicio Zhou MD IMG XR PROCEDURES Final Resul t * Troponin I high sensitivity (05/31/2024 1:40 PM EST) Only the most recent of2 resultswithin the time period is included. High Sensitivity Troponin I 16 <=54 ng/L LAB CHEMISTRY METHOD 05/31/2024 2:37 PM EST [facility] Blood Venous blood specimen / Unknown Venipuncture / Unknown 05/31/2024 1:40 PM EST 05/31/2024 1:59 PM EST Narrative [facility] - 05/31/2024 2:37 PM EST High levels of biotin in samples may falsely decrease hsTroponin values. ??Use caution when interpreting hsTroponin results in patients taking biotin who exhibit renal impairment (eGFR <60) or in patients taking more than 20 mg/day of biotin. us Christophe Gonzalez MD LAB BLOOD ORDERABLES Aileen l Result [facility] [address] [place] [address], [place] [phone] * CT Cervical Spine wo Contrast (05/31/2024 [...] Signed Date: 05/31/2024 13:14 ET Workstation ID: [id number] Transcribed By: Self Edit Transcribed Date: 05/31/2024 [...] Signed Date: 05/31/2024 13:14 ET Workstation ID: [id number] Transcribed By: Self Edit Transcribed Date: 05/31/2024 [...] Signed Date: 05/31/2024 13:12 ET Workstation ID: [id number] Transcribed By: Self Edit Transcribed Date: 05/31/2024 [...] Signed Date: 05/31/2024 13:12 ET Workstation ID: [id number] Transcribed By: Self Edit Transcribed Date: 05/31/2024 13:10 ET Christophe Gonzalez MD IM CT PROCEDURES Final R esult * [id number], RSV, Influenza A and B qualitative RT-PCR (05/31/2024 11:29 AM EST) Influenza A PCR Not Detected Not Detected LAB MICROBIOLOGY METHOD 05/31/2024 1:[address] [facility] Influenza B PCR Not Detected Not Detected LAB MICROBIOLOGY METHOD 05/31/2024 1:[address] [facility] RSV PCR Not Detected Not Detected LAB MICROBIOLOGY METHOD 05/31/2024 1:[address] [facility] SARS COV-2 Not Detected Not Detected LAB MICROBIOLOGY METHOD 05/31/2024 1:[address] [facility] Swab Both anterior nares / Unknown Non-blood Collection / Unknown 05/31/2024 11:29 AM EST 05/31/2024 12:18 PM EST [facility] - 05/31/2024 1:22 PM EST Disclaimer: ??Testing was performed using the [employer] GeneXpert Xpress SARS-CoV-2 _Flu_RSV PLUS PCR assay. [...] for Healthcare providers can be found at https://www.fda.gov/media/495325/download. ?? Fact sheet for Healthcare patients can be found at https://www.fda.gov/media/014912/download. Dionicio Zhou MD LAB MICROBIOLOGY - GENERAL OR DERABLES Final Result Performing Organization Address [facility]/ZIP Co de Phone Number [facility] [address] [place] [address], * (ABNORMAL) B-type natriuretic peptide (05/31/2024 11:28 AM EST) BNP 114(H) <=100 pcg/mL LAB CHEMISTRY METHOD 05/31/2024 1:19 PM EST [facility] Blood Venous blood specimen / Unknown Venipuncture / Unknown 05/31/2024 11:28 AM EST 05/31/2024 12:20 PM EST Christophe Gonzalez MD LAB BLOOD ORDERABLES Aileen l Result Performing Organization Address [facility]/ZIP Co de Phone Number [facility] [address] [place] [address], * Lipase (05/31/2024 11:28 AM EST) Lipase 49 13 - 75 unit/L LAB CHEMISTRY METHOD 05/31/2024 12:57 PM EST [facility] Blood Venous blood specimen / Unknown Venipuncture / Unknown 05/31/2024 11:28 AM EST 05/31/2024 12:20 PM EST us Christophe Gonzalez MD LAB BLOOD ORDERABLES Aileen anil Result [facility] [address] [place] [address], * (ABNORMAL) Comprehensive metabolic panel (05/31/2024 11:28 AM EST) Sodium 135 133 - 145 mmol/L LAB CHEMISTRY METHOD 05/31/2024 1:[address] [facility] Potassium 5.0 3.5 - 5.5 mmol/L LAB CHEMISTRY METHOD 05/31/2024 1:[address] [facility] Chloride 102 96 - 110 mmol/L LAB CHEMISTRY METHOD 05/31/2024 1:[address] [facility] CO2 28 21 - 32 mmol/L LAB CHEMISTRY METHOD 05/31/2024 1:[address] [facility] Anion Gap 5 3 - 11 LAB CHEMISTRY METHOD 05/31/2024 1:[address] [facility] Glucose 115(H) 70 - 100 mg/dL LAB CHEMISTRY METHOD 05/31/2024 1:[address] [facility] BUN 42(H) 5 - 25 mg/dL LAB CHEMISTRY METHOD 05/31/2024 1:[address] [facility] Creatinine 1.18(H) 0.50 - 1.10 mg/dL LAB CHEMISTRY METHOD 05/31/2024 1:[address] [facility] eGFR 45(L) >=60 mL/min/1. 73m2 LAB CHEMISTRY METHOD 05/31/2024 1:[address] [facility] Comment:Calculation based on the??Chronic Kidney Disease Epidemiology Collaboration (CKD-EPI) equation refit??without adjustment for race. BUN/Creatinine Ratio 35.6 LAB CHEMISTRY METHOD 05/31/2024 1:35 PM EST [facility] Calcium 9.6 8.5 - 10.5 mg/dL LAB CHEMISTRY METHOD 05/31/2024 1:[address] [facility] AST (SGOT) 11 10 - 42 unit/L LAB CHEMISTRY METHOD 05/31/2024 1:[address] [facility] ALT (SGPT) 19 10 - 60 unit/L LAB CHEMISTRY METHOD 05/31/2024 1:[address] [facility] Alkaline Phosphatase 50 42 - 121 unit/L LAB CHEMISTRY METHOD 05/31/2024 1:[address] [facility] Total Protein 6.4 6.0 - 8.0 g/dL LAB CHEMISTRY METHOD 05/31/2024 1:[address] [facility] Albumin 3.5 3.2 - 5.0 g/dL LAB CHEMISTRY METHOD 05/31/2024 1:[address] [facility] Total Bilirubin 0.7 0.0 - 1.4 mg/dL LAB CHEMISTRY METHOD 05/31/2024 1:[address] [facility] Blood Venous blood specimen / Unknown Venipuncture / Unknown 05/31/2024 11:28 AM EST 05/31/2024 12:20 PM EST us Christophe Gonzalez MD LAB BLOOD ORDERABLES Aileen l Result [facility] [address] [place] [address], * ECG 12 lead (05/31/2024 11:22 AM EST) Ventricular Rate ECG 62 BPM GEMUSE Atrial Rate 62 BPM GEMUSE P-R Interval 204 ms GEMUSE QRS Duration 154 ms GEMUSE Q-T Interval 494 ms GEMUSE QTc 501 ms GEMUSE R [place] 160 degrees GEMUSE T [place] 88 degrees GEMUSE ECG Interpretation AV dual-paced [...] LAB CHEMISTRY METHOD 04/06/2024 3:06 PM EST [facility] Triglycerides 95 0 - 150 mg/dL LAB CHEMISTRY METHOD 04/06/2024 3:[address] [facility] HDL 49 >=40 mg/dL LAB CHEMISTRY METHOD 04/06/2024 3:[address] [facility] LDL Calculated 86 0 - 100 mg/dL LAB CHEMISTRY METHOD 04/06/2024 3:[address] [facility] VLDL Cholesterol Ed 19 mg/dL LAB CHEMISTRY METHOD 04/06/2024 3:[address] [facility] Non HDL Chol. (LDL+VLDL) 105 <145 mg/dL LAB CHEMISTRY METHOD 04/06/2024 3:[address] [facility] Chol/HDL Ratio 3.1 0.0 - 4.4 LAB CHEMISTRY METHOD 04/06/2024 3:[address] [facility] Blood Venous blood specimen / Unknown Venipuncture / Unknown 04/06/2024 12:10 PM EST 04/06/2024 12:10 PM EST us Castro Cardoso MD LAB BLOOD ORDERABLES Final Resul t [facility] [address] [place] [address], * Hemoglobin A1c (04/06/2023) Hemoglobin A1C 6.2 <=6.5 % Blood Venous blood specimen / Unknown Historical Provider LAB BLOOD ORDERABLES Aileen l Result from Last 3 Months or Most Recently Relevant to Health Maintenance Insurance [employer] Advance Directives Documents on File Type Date Recorded Patient Roll Former Expl anation Health Care Decision (hx) 05/22/2020 [...] currently active code status orders. Care Teams Securities Sales Associate Relationship Specialty Start Date End Date Castro Cardoso MD [address] [place] [address] PCP - General Internal Medicine 03/08/13
--- OUTSIDE RECORDS SUMMARY | 2024-08-16 12:35 | XMS_ITS ---
Author Organization [facility] Address [address] [place] [address] Care Team Providers Care Professional Services Manager Name Role Phone Castro Cardoso MD Primary Care Provider Unavailab Kenneth Rosales Unavailable [phone] Mehreen Grossman Unavailable [phone] REASON FOR VISIT Transfer to Different Provider Encounters En[facility] Date [facility] [address] [address] 07/13/2024 Mehreen Grossman Plan Of Treatment No Information Progress Notes * Madie HERNANDEZDOB:1935 (89 yo F)Acc No.[id number]:07/13/2024 Progress Note Patient:?BOBBYWILFRED Madie Chavez Provider:?Mehreen Grossman DPM :1935???Age:89 Y???Sex:Female D ate:07/13/2024 Address:[address] [place] [phone] Pcp:Castro Cardoso MD Subjective: * Chief Complaints: [...] DPM Date:?0 07/13/2024 Generated for Duane hui/Ivette/Eliud on:?08/16/2024 12:35 PM EDT
--- OUTSIDE RECORDS SUMMARY | 2024-08-16 12:36 | XMS_ITS | Encounter Summary ---
Author Organization [facility] Address [address] [place] [address] Care Team Providers Care Technical Buyer Name Role Phone Castro Cardoso MD Primary Care Provider [phone] Reason for Visit * Reason Onset Date Comments Medication 07/12/2024 Encounter Details Date Type Department Care Team (Late st Contact Info) Description 07/12/2024 Telephone [facility] [address] [place] [address] Dr Silveira [address] [place] [address] Jennifer Segundo NP [address] [place] [address] Dr Payne [address] [place] [address] Medication Social History Tobacco Use Types Packs/Day [...] by TEN Segundo, previously seen by Dr. Shcreiber, with cardiac history of HFrEF, HTN, HLD, [...] big toe with Dr Verde Tomorrow at [facility]. If we can give a call back to let him know he would appreciate it. documented in this encounter Plan of Treatment Upcoming Encounters Date Type Department Care Team (Late st Contact Info) Description 10/09/2024 2:45 PM EDT Office Visit Orthopedic Surgery - [place] [address] [address] Dread Verde, DPM [address] [address] 10/23/2024 2:00 PM EDT Ancillary Procedure [facility] - [address] [place] [address] 11/28/2024 11:20 AM EDT Office Visit [facility]iology [facility] [address] [facility] [address] [place] [address] Makenzie Pro MD [address] [place] [address] 01/03/2025 3:00 PM EDT Office Visit Internal Medicine - [place] [address] [place] [address] Castor Cardoso MD 175 [facility] 200 [place] [address] documented as of this encounter Visit Diagnoses Not on filedocumented in this encounter Care Teams Technical Buyer Relationship Specialty Start Date End Date Castro Cardoso MD [address] [facility] [address] [place] [address] PCP - General Internal Medicine 03/08/13 documented as of this encounter
--- OUTSIDE RECORDS SUMMARY | 2024-08-16 12:36 | XMS_ITS | Encounter Summary ---
Author Organization [facility] Address [address] [place] [address] Care Team Providers Care Aviation Support Equipment Repairer Name Role Phone Castro Cardoso MD Primary Care Provider [phone] Reason for Referral * Consultation (Routine) - Authorized Specialty Diagnoses / Procedures Referred By Contac t Referred To Contact Cardiology Diagnoses Unspecified atrial fibrillation (CMS/HCC V24, CMS/HCC V28) Castro Cardoso MD [address] [address] Phone: tel: fax: [facility] - [address] [place] [address] Phone: tel: fax: Referral ID Status Reason Start Date Expiration Date Visits Requested Visits Authorized [id number] Authorized Specialty Services Required 07/19/2024 07/19/2025 6 6 Reason for Visit * Reason Onset Date Comments Referral 07/19/2024 Cardiology Insur ance Referral Encounter Details Date Type Department Care Team (Late st Contact Info) Description 07/19/2024 Telephone Internal Medicine - [place] 175 [facility] 200 [place] [phone] Castro Cardoso MD 175 [facility] 200 [place] [address] Referral (Cardiology Insurance Referral) Social History Tobacco [...] insurance does the patient have today? Payor: [facility]@/@[email or web address]@ Referrals cannot be processed if the insurance is not accurate. If the insurance listed above is NO BILLING INFORMATION FOUND FOR THIS ENCOUNTER then the patients correct insurance must be obtainedand registered in [facility] or their referral can not be processed. Name of person calling to request this referral? Fax - [facility] Referred To Provider (Include first and last name): Dionicio Michael NPI (if known): [phone] Order/Specialty requested cardiology Chief Complaint (Note: This [...] PM EDT Office Visit Orthopedic Surgery - [place] [address] [place] [address] Dread Verde DPM [address] [place] [address] 10/23/2024 2:00 PM EDT Ancillary Procedure [facility] - [address] [place] [address] 11/28/2024 11:20 AM EDT Office Visit [facility] - [address] [place] [address] Makenzie Pro MD [address] [place] [address] 01/03/2025 3:00 PM EDT Office Visit Internal Medicine - [place] [address] [place] [address] Castro Cardoso MD [address] [facility] [address] [place] [address] [place] [address] Scheduled Referrals Name Type Priority Associated Diagnoses Orde r Schedule Ambulatory referral to Cardiology Outpatient Referral Routine Unspecified atrial fibrillation (CMS/HCC V24, CMS/HCC V28) Expected: 07/19/2024, Expires: 07/19/2025 documented as of this encounter Visit Diagnoses Diagnosis Unspecified atrial fibrillation (CMS/HCC V24, CMS/HCC V28)- Primary Encounter for adjustment or management of cardiac device documented in this encounter Care Teams Aviation Support Equipment Repairer Relationship Specialty Start Date End Date Castro Cardoso MD [address] [place] [address] [place] [address] PCP - General Internal Medicine 03/08/13 documented as of this encounter
--- OUTSIDE RECORDS SUMMARY | 2024-08-16 12:36 | XMS_ITS | Clinical Summary ---
Author Organization [facility] Address [address] [place] [address] Care Team Providers Care Sustainability Purchasing Agent Name Role Phone Castro Cardoso MD Primary [...] age to complete this topic Care Teams Sustainability Purchasing Agent Relationship Specialty Start Date End Date Castro Cardoso MD PCP - General Internal Medicine 05/03/23
--- OUTSIDE RECORDS SUMMARY | 2024-08-16 12:36 | XMS_ITS | Encounter Summary ---
Author Organization [facility] [address] Address [address] [place] [address] Care Team Providers Care Addiction Social Worker Name Role Phone Castro Cardoso MD Primary Care Provider [phone] Reason for Visit * Reason Onset Date Comments Scheduling Nuclear Stress Test 08/01/2024 Encounter Details Date Type Department Care Team (Late st Contact Info) Description 08/01/2024 Telephone [facility] [address] [place] [address] Dr Silveira [address] [place] [address] Mackenzie Finn NP [address] [place] [address] [place] [address] Scheduling Nuclear Stress Test Social History Tobacco [...] PM EDT Office Visit Orthopedic Surgery - [place] 250 175 [facility] [address] [place] [address] Dread Verde DPCasi 175 [facility] [address] [place] [address] 10/23/2024 2:00 PM EDT Ancillary Procedure [facility] [address] [facility] 154 [place] [address] 11/28/2024 11:20 AM EDT Office Visit [facility] [address] [facility] 154 [place] [address] Makenzie Pro MD 300 [place] [address] 01/03/2025 3:00 PM EDT Office Visit Internal Medicine - [place] 175 [facility] 200 [place] [address] Castro Cardoso MD 175 [facility] 200 [place] [address] documented as of this encounter Visit Diagnoses Not on filedocumented in this encounter Care Teams Addiction Social Worker Relationship Specialty Start Date End Date Castro Cardoso MD 175 [facility] 200 [place] [address] PCP - General Internal Medicine 03/08/13 documented as of this encounter
--- OUTSIDE RECORDS SUMMARY | 2024-08-16 12:36 | XMS_ITS ---
Author Organization [facility] Address [address] [place] [address] Care Team Providers Care Grinder Name Role Phone Castro Cardoso MD Primary Care Provider UnavailKenneth Cason [phone] REASON FOR VISIT Cx 07/13/24 Encounters Encounter Location Date [facility] [address] [address] 06/27/2024 Kenneth Verde Plan Of Treatment No Information Progress Notes * Madie HERNANDEZDOB:1935 (89 yo F)Acc No.[id number]:06/27/2024 Patient:?Madie HERNANDEZ :1935???Age:89 Y???Sex:Female Address:[address] [place] [address], [address] * true * Date:? Generated for Lubai ez/Ivette/eTransmitting on:?08/16/2024 12:35 PM EDT
--- OUTSIDE RECORDS SUMMARY | 2024-08-16 12:36 | XMS_ITS | Encounter Summary ---
Author Organization [facility] Address [address] [place] [address] Care Team Providers Care Foley Artist Name Role Phone Castro Cardoso MD Primary Care Provider [phone] Encounter Details Date Type Department Care Team ([facility] Contact Info) Description 07/19/2024 Telephone [facility] - [facility] [address] [facility] 154 [place] [phone] Miranda Beaulieu NP 300 [facility] 154 [place] [phone] Social History Tobacco Use Types Packs/Day Years [...] PM EDT Office Visit Orthopedic Surgery - [place] 250 175 [facility] 250 [place] [address] Dread Verde DPM [address] [address] 10/23/2024 2:00 PM EDT Ancillary Procedure [facility]iology [facility] [address] [facility] [address] [place] [address] 11/28/2024 11:20 AM EDT Office Visit [facility] [address] [facility] 154 [place] [address] Makenzie Pro MD 300 [place] [address] 01/03/2025 3:00 PM EDT Office Visit Internal Medicine - [place] 175 [facility] 200 [place] [address] Castro Cardoso MD [address] [address] documented as of this encounter Visit Diagnoses [...] 07/31/2024 added in this encounter Care Teams Foley Artist Relationship Specialty Start Date End Date Castro Cardoso MD [address] [address] PCP - General Internal Medicine 03/08/13 documented as of this encounter
== END 2024-08-16 11:44 | disposition home or self-care (01) ==
LOC: HO.HVS 11:27
PROVIDERS: PCP Internal Medicine; Visit Provider Surgery Vascular Surgery
DX: I73.9 Peripheral vascular disease, unspecified (principal); I83.11 Varicose veins of right lower extremity with inflammation
CPT/HCPCS: 99213

== ENCOUNTER → 2024-08-16 11:27 | Outpatient (BNVA) | payer MEDICARE, SELFPAY | PROVIDERS: PCP Internal Medicine; Visit Provider Surgery Vascular Surgery | DX: I73.9 Peripheral vascular disease, unspecified (principal); I83.11 Varicose veins of right lower extremity with inflammation | CPT/HCPCS: 99212 ==